=== PATIENT | male | born 1965 | race Two or more races ===

== ENCOUNTER 2023-11-12 09:43 | Inpatient (IN) | payer OTHER ==
[~2023-11-12] VITALS: Ht 185.4 cm; Wt 169.0 kg
[2023-11-12 10:06] VITALS: RESP 20; O2SAT 96
[2023-11-12 10:14] LABS: Urine WBC None Seen /hpf (0 - 3)
[2023-11-12 10:41] LABS: Urine Bacteria NONE SEEN /hpf (None Seen); Urine Blood Negative /uL (Negative); Urine Clarity Clear (Clear); Urine Color Colorless (Yellow); Urine Protein, UAD Negative (Negative); Urine Specific Gravity 1.008 (1.001-1.035); Urine Urobilinogen Normal (Negative); Urine pH 5.5 (5.0-8.0)
[2023-11-12 10:43] LABS: Basophils # (auto) 0 10 ^3/uL (0-0.2); Basophils % (auto) 0.8 % (0.0-2.0); Eosinophils # (auto) 0.3 10 ^3/uL (0-0.8); Eosinophils % (auto) 5.5 % (0.0-7.0); Hematocrit 45.3 % (41.0-53.0); Hemoglobin 14.9 g/dL (13.5-17.5); Lymphocytes # (auto) 0.5 10 ^3/uL (0.4-5.4); Lymphocytes % (auto) 10.6 % (10.0-50.0); Mean Corpuscular Hemoglobin 29.3 pg (28.0-32.0); Mean Corpuscular Hgb Conc. 32.9 g/dL (32.0-36.0); Monocytes # (auto) 0.6 10 ^3/uL (0-1.3); Monocytes % (auto) 11.5 % (0.0-12.0); Neutrophils # (auto) 3.6 10 ^3/uL (1.6-8.6); Neutrophils % (auto) 71.6 % (37.0-80.0); Nucleated Red Blood Cells % 0.1 %; Red Blood Cells 5.09 10^6/uL (4.5-5.90)
[2023-11-12 11:07] LABS: Alanine Aminotransferase 41 U/L (7-40); Alkaline Phosphatase 124 U/L (46-116); Aspartate Aminotransferase 63 U/L (13-40); Calcium 7.9 mg/dL (8.5-10.1); Chloride 108 mmol/L (98-107)
[2023-11-12 11:08] LABS: Albumin 2.5 g/dL (3.2-4.8); Anion Gap 3 (5-15); BUN/Creatinine Ratio 21.6 (10.0-20.0); Bilirubin, Total 0.4 mg/dL (0.2-1.0); Blood Urea Nitrogen 16 mg/dL (9-23); Carbon Dioxide 31 mmol/L (20-30); Glucose 111 mg/dL (74-106); Potassium 4.4 mmol/L (3.5-5.1); Sodium 142 mmol/L (136-145); Total Protein 4.5 g/dL (5.7-8.2)
[2023-11-12 11:12] LABS: INR 1.14 (0.9-1.15); Prothrombin Time 11.9 sec (9.3-11.8)
[2023-11-12] MEDS ORDERED: BISO10TA31 PO (14:46)
[2023-11-12] MEDS ORDERED: FURO40TA4 PO (14:46)
[2023-11-12] MEDS ORDERED: POTA1TAB4 PO (14:46)
[2023-11-12] MEDS ORDERED: DABI150C7 PO (14:46)
[2023-11-12] MEDS ORDERED: ATOR40TA52 PO (14:46)
[2023-11-12] MEDS ORDERED: LISI20TA56 PO (14:46)
[2023-11-12] MEDS: FUROSEMIDE 40 MG/4 ML VIAL IV ONE (14:57)
[2023-11-12] MEDS ORDERED: ONDANSETRON HCL 4 MG/2 ML VIAL IV PRN (17:00)
[2023-11-12] MEDS ORDERED: DOCUSATE SOD 100 MG CAP PO PRN (17:00)
[2023-11-12] MEDS ORDERED: ACETAMINOPHEN 325 MG TAB PO PRN (17:00)
[2023-11-12 19:40] VITALS: RESP 11; RESP 20; O2SAT 94
[2023-11-12] MEDS: ALBUMIN 25% 100 ML IV ONE (19:53)
[2023-11-13] MEDS: PHENYLEPHRINE IV 250 ML IV SCH (00:17)
[2023-11-13 02:45] VITALS: PULSE 71; RESP 18; O2SAT 94
[2023-11-13 03:27] LABS: Basophils # (auto) 0 10 ^3/uL (0-0.2); Basophils % (auto) 0.8 % (0.0-2.0); Eosinophils # (auto) 0.4 10 ^3/uL (0-0.8); Eosinophils % (auto) 6.7 % (0.0-7.0); Hematocrit 44.4 % (41.0-53.0); Hemoglobin 14.7 g/dL (13.5-17.5); Lymphocytes # (auto) 0.7 10 ^3/uL (0.4-5.4); Lymphocytes % (auto) 10.8 % (10.0-50.0); Mean Corpuscular Hemoglobin 29.3 pg (28.0-32.0); Mean Corpuscular Hgb Conc. 33.1 g/dL (32.0-36.0); Mean Corpuscular Volume 88.6 fL (80.0-100.0); Monocytes # (auto) 0.8 10 ^3/uL (0-1.3); Monocytes % (auto) 13.1 % (0.0-12.0); Neutrophils # (auto) 4.2 10 ^3/uL (1.6-8.6); Neutrophils % (auto) 68.6 % (37.0-80.0); Nucleated Red Blood Cells % 0.2 %; Red Blood Cells 5.01 10^6/uL (4.5-5.90); White Blood Cell 6.1 10^3/uL (4.4-10.8)
[2023-11-13 03:45] LABS: Alanine Aminotransferase 34 U/L (7-40); Albumin 2.6 g/dL (3.2-4.8); Alkaline Phosphatase 102 U/L (46-116); Anion Gap 3 (5-15); Aspartate Aminotransferase 38 U/L (13-40); BUN/Creatinine Ratio 14.9 (10.0-20.0); Bilirubin, Total 0.7 mg/dL (0.2-1.0); Blood Urea Nitrogen 11 mg/dL (9-23); Calcium 8.3 mg/dL (8.7-10.4); Carbon Dioxide 29 mmol/L (20-30); Chloride 110 mmol/L (98-107); Glucose 99 mg/dL (74-106); Potassium 3.6 mmol/L (3.5-5.1); Sodium 142 mmol/L (136-145); Total Protein 4.8 g/dL (5.7-8.2)
[2023-11-13 03:56] LABS: Triglycerides 47 mg/dL (< 150)
[2023-11-13 03:57] LABS: LDL Cholesterol 44 mg/dL (< 100)
[2023-11-13 03:58] LABS: Cholesterol 84 mg/dL (< 200); HDL Cholesterol 33 mg/dL (40-59)
[2023-11-13] MEDS: FUROSEMIDE 20 MG/2 ML VIAL IV SCH (06:10)
[2023-11-13 07:56] VITALS: PULSE 65; RESP 20; O2SAT 95
[2023-11-13] MEDS: BISOPROLOL FUMARATE 10 MG PO SCH (10:00)
[2023-11-13] MEDS ORDERED: ATORVASTATIN 20 MG TAB PO SCH (10:00)
[2023-11-13] MEDS ORDERED: LISINOPRIL 20 MG TAB PO SCH (10:00)
[2023-11-13] MEDS: ENOXAPARIN SOD 40 MG/0.4 ML SYRINGE SC SCH (10:34)
[2023-11-13] MEDS ORDERED: METO2.5T PO (11:58)
[2023-11-13] MEDS: SPIRONOLACTONE 25 MG TAB PO SCH (18:00)
[2023-11-13] MEDS: FUROSEMIDE 40 MG/4 ML VIAL IV SCH (18:26)
[2023-11-13 20:27] VITALS: PULSE 93; RESP 17; O2SAT 96
[2023-11-13] MEDS: ENOXAPARIN SOD 150 MG/1 ML SYRINGE SC SCH (22:20)
[2023-11-14] MEDS: NITROGLYCERIN 2% OINT 1GM PKG TD ONE (02:03)
[2023-11-14 05:05] LABS: Chloride 111 mmol/L (98-107); Potassium 3.3 mmol/L (3.5-5.1); Sodium 142 mmol/L (136-145)
[2023-11-14 05:06] LABS: Anion Gap 4 (5-15); Basophils # (auto) 0 10 ^3/uL (0-0.2); Basophils % (auto) 0.7 % (0.0-2.0); Calcium 8.3 mg/dL (8.7-10.4); Carbon Dioxide 27 mmol/L (20-30); Eosinophils # (auto) 0.4 10 ^3/uL (0-0.8); Eosinophils % (auto) 6.6 % (0.0-7.0); Hematocrit 43.3 % (41.0-53.0); Hemoglobin 14.5 g/dL (13.5-17.5); Lymphocytes # (auto) 0.5 10 ^3/uL (0.4-5.4); Lymphocytes % (auto) 8.6 % (10.0-50.0); Mean Corpuscular Hemoglobin 29.6 pg (28.0-32.0); Mean Corpuscular Hgb Conc. 33.4 g/dL (32.0-36.0); Mean Corpuscular Volume 88.5 fL (80.0-100.0); Monocytes # (auto) 0.8 10 ^3/uL (0-1.3); Monocytes % (auto) 14.2 % (0.0-12.0); Neutrophils % (auto) 69.9 % (37.0-80.0); Nucleated Red Blood Cells % 0.3 %; White Blood Cell 5.7 10^3/uL (4.4-10.8)
[2023-11-14 05:11] LABS: BUN/Creatinine Ratio 14.8 (10.0-20.0); Blood Urea Nitrogen 9 mg/dL (9-23); Glucose 100 mg/dL (74-106)
[2023-11-14 08:00] VITALS: O2SAT 99
[2023-11-14] MEDS: POTASSIUM EFFERVESENT TAB 25 MEQ PO ONE (09:43)
[2023-11-14 18:11] VITALS: BP 109/76; PULSE 122; RESP 16; RESP 18; TEMP 97.8; O2SAT 96
[2023-11-14 20:00] VITALS: BP 108/67; PULSE 107; PULSE 122; PULSE 98; RESP 16; RESP 20; TEMP 98.1; O2SAT 96
[2023-11-14] MEDS: METOPROLOL TARTRATE 25 MG TAB PO SCH (21:32)
[2023-11-14 21:57] VITALS: BP 108/67; PULSE 107; RESP 20; TEMP 98.1; O2SAT 94
[2023-11-15 05:00] VITALS: BP 106/70; PULSE 110; RESP 20; TEMP 98.3; O2SAT 91
[2023-11-15 05:51] LABS: Anion Gap 3 (5-15); Carbon Dioxide 30 mmol/L (20-30); Chloride 110 mmol/L (98-107); Potassium 3.5 mmol/L (3.5-5.1); Sodium 143 mmol/L (136-145)
[2023-11-15 05:52] LABS: Calcium 8.4 mg/dL (8.7-10.4)
[2023-11-15 05:57] LABS: BUN/Creatinine Ratio 17.7 (10.0-20.0); Blood Urea Nitrogen 11 mg/dL (9-23); Glucose 99 mg/dL (74-106); Magnesium 1.8 mg/dL (1.6-2.6)
[2023-11-15 08:00] VITALS: PULSE 108; O2SAT 96
[2023-11-15 08:24] VITALS: BP 100/64; PULSE 99; RESP 18; TEMP 97.8; O2SAT 92
[2023-11-15 12:34] VITALS: BP 113/58; PULSE 104; RESP 19; TEMP 98.1; O2SAT 92
[2023-11-15] MEDS ORDERED: TORS10TA12 PO ×2 (13:07)
[2023-11-15 14:07] VITALS: BP 113/58; PULSE 104; RESP 19; TEMP 98.1; O2SAT 92
[2023-11-15 16:47] VITALS: BP 125/77; PULSE 112; RESP 19; TEMP 98; O2SAT 94
== END 2023-11-15 17:52 | disposition home or self-care (01) | DRG 291 ==
LOC: ER 09:43 → OVERFLOW 16:51 → TELE 19:43 → WEST WING 11-14 17:58 → TELE-WESTW 11-15 08:02
PROVIDERS: ADMIT Nurse Practitioner Family; ATTEND Nurse Practitioner Acute Care
DX: I11.0 Hypertensive heart disease with heart failure (principal); I50.43 Acute on chronic combined systolic (congestive) and diastolic (congestive) heart failure; R57.0 Cardiogenic shock; E44.0 Moderate protein-calorie malnutrition; I48.19 Other persistent atrial fibrillation; J90 Pleural effusion, not elsewhere classified; Z68.42 Body mass index [BMI] 45.0-49.9, adult; E66.01 Morbid (severe) obesity due to excess calories; K70.30 Alcoholic cirrhosis of liver without ascites; E78.5 Hyperlipidemia, unspecified; Z87.891 Personal history of nicotine dependence; Z79.01 Long term (current) use of anticoagulants
CPT/HCPCS: 36415; 71045; 76705; 80048; 80053; 80061; 81001; 83036; 83735; 83880; 84484; 85025; 85610; 93005; 93306; 93970; 96374; G0378; P9047

== ENCOUNTER 2024-10-11 11:50 | Inpatient (IN) | payer OTHER ==
[~2024-10-11] VITALS: Ht 185.4 cm; Wt 116.4 kg
[~2024-10-11 11:50] MED LIST: ATOR40TA52 PO; BISO10TA31 PO; DABI150C7 PO; LISI20TA56 PO; METO2.5T PO; POTA1TAB4 PO; TORS10TA12 PO
[2024-10-11] MEDS ORDERED: ONDANSETRON ODT 4 MG TAB PO ONE (12:45)
[2024-10-11] MEDS ORDERED: ONDANSETRON HCL 4 MG/2 ML VIAL IV PRN ×2 (12:45→20:45)
--- NOTE | 2024-10-11 12:56 | ED.PDOC ---
HPI Comments Stevo No Julisherry this is a 59-year-old male patient who presents to the ED with chief complaint of lower limb swelling which started approximately one month ago after an upper respiratory infection (per patient, was sick at that time), but has been gradually getting worse until he presents abdominal and scrotal edema in these past few days. He also reports dyspnea in functional class III, unintentional weight gain of 85 lb and chills. When evaluated in triage patient presented sustained hypotension (81/40 mmHg). Denies chest pain, palpitation syncope, productive cough, nausea, vomiting, diarrhea, bleeding, recent travel and motor or sensory deficits. Past medical history: Congestive heart failure, persistent atrial fibrillation (chads Vasc 2/has bled2) under dabigatran, alcoholic liver cirrhosis (has not consume alcohol for the past nine months) Surgical history: Denies Family history: Father from a PA at age 64 Social history: Lives in [place] with . Ex-smoker he quit 15 years ago (15 pack-year history of smoking). Ex ethanol abuse (up to 36 beers per day) he quit nine months ago. Denies current tobacco, alcohol and other drug abuse Allergies: Denies Home medication: Metolazone 2.5 mg p.o. 3 times a week, atorvastatin 40 mg p.o. daily, furosemide 40 mg p.o. daily, torsemide 10 mg p.o. b.i.d., lisinopril 20 mg p.o. daily, bisoprolol 10 mg p.o. daily, spironolactone 12.5 mg p.o. daily, dabigatran 115 mg p.o. daily, potassium Chief Complaint: Low Blood Pressure Time Seen by MD: 11:55 Primary Care Provider: BRANDYN Allergies: Coded Allergies: NO KNOWN ALLERGIES (Unverified , 11/12/23) Home Meds Active Scripts Torsemide (Torsemide) 10 Mg Tab, 10 MG PO DAILY for 60 Days, #60 TAB Please start daily dose after completing furosemide 10 mg p.o. twice daily for 7 days. Prov:JASSI PEREYRA COMPLEX CARE NURSE PRACTITIONER 11/15/23 Torsemide (Torsemide) 10 Mg Tab, 10 MG PO BID for 7 Days, #14 TAB Prov:JASSI PEREYRA COMPLEX CARE NURSE PRACTITIONER 11/15/23 Reported Medications Metolazone (Metolazone) 2.5 Mg Tab, 1 TAB PO MWF 11/13/23 Potassium Chloride (K-Tab) 20 Meq Tab, 1 TAB PO DAILY 11/12/23 Dabigatran Etexilate Mesylate (Dabigatran Etexilate) 150 Mg Cap, 1 TAB PO BID 11/12/23 Atorvastatin Calcium (ATORVASTATIN CALCIUM) 40 Mg Tab, 1 TAB PO DAILY 11/12/23 Bisoprolol Fumarate (Bisoprolol Fumarate) 10 Mg Tab, 1 TAB PO DAILY 11/12/23 Lisinopril (Lisinopril) 20 Mg Tab, 1 TAB PO DAILY 11/12/23 Mode of Arrival: Ambulatory Past Medical History PAST MEDICAL HISTORY: Liver Surgical History: Denies all surgeries Family History Family History: Reviewed,noncontributory to illness Social History Smoker: Quit Greater Than 1 Year Alcohol: Sober Drugs: Denies Drug Use Lives In: Home Physical Exam General Appearance: No Apparent Distress, Normal HEENT: Normal ENT Inspection, Pharynx Normal, TMs Normal Neck: Full Range of Motion, Non-Tender, Normal, Normal Inspection Respiratory: Chest Non-Tender, Decreased Breath Sounds, No Accessory Muscle Use, No Respiratory Distress, Rales Cardiovascular: No JVD, No Murmur, No Gallop, Normal Peripheral Pulses, Tachycardia Breast Exam: Deferred Gastrointestinal: Distended, Non Tender, No Pulsatile Mass, Soft Genitalia: Deferred Pelvic: Deferred Rectal: Deferred Extremities: Leg edema Neurologic: Alert, home hospice rn II-XII nml as Tested, No Motor Deficits, Normal Affect, Normal Mood, No Sensory Deficits Cerebellar Function: Normal Reflexes: Normal Skin: Dry, Normal Color, Warm Lymphatic: No Adenopathy Was a procedure done? Was a procedure done?: No CP Differential Dx Differential Diagnosis: A-fib, A-Flutter, Electrolyte Disorder, Heart Failure, Renal Failure Comment Decompensated liver cirrhosis X-Ray, Labs, Meds, VS Vital Signs Date Time Temp Pulse Resp B/P (MAP) Pulse Ox O2 Delivery O2 Flow Rate FiO2 10/11/24 12:23 98.2 125 20 81/45 (57) 91 X-Ray, Labs, Meds, VS Comment Have ordered laboratory workup, abdominal ultrasound to evaluate paracentesis, echocardiogram, EKG and chest x-ray. Time of 1ST Reevaluation: 12:54 Reevaluation 1ST: Unchanged Patient Education/Counseling: Diagnosis, Treatment, Prognosis Family Education/Counseling: Diagnosis, Treatment, Prognosis Departure 1 Departure Time of Disposition: 12:54 Impression: Primary Impression: Hypotension Additional Impressions: Congestive heart disease Liver cirrhosis Atrial fibrillation Sepsis Disposition: 09 ADMITTED INPATIENT Admit to: [facility] Condition: Serious Additional Instructions: Patient is currently hypotensive with acute on chronic CHF. Patient will benefit from IV norepinephrine and IV furosemide at this point. Have ordered complementary workup, pending. Patient has poor prognosis Critical Care Note Critical Care Time?: No Stability Stability form required: No Heart Score Heart Score: Heart Score Response (Comments) Value History N/A 0 EKG N/A 0 Age N/A 0 Risk Factors N/A 0 Troponin N/A 0 Total 0 ARMINDA BERMEO RESIDENT Oct 11, 2024 12:56
--- NOTE | 2024-10-11 12:59 | DVH ---
CHEST RADIOGRAPH Indication: CHF Technique: Single frontal view of the chest was obtained COMPARISON: XY CHEST XRAY 1 VIEW on DOS: 11/12/23 FINDINGS: Lines and Tubes: None Lungs: Right lower lobe airspace disease. Pleura: No effusion. No pneumothorax. Cardiomediastinal contours: Unremarkable Bones: Unremarkable IMPRESSION: Right lower lobe airspace disease.
[2024-10-11] MEDS: NOREPINEPHRINE 8 MG/250ML KIT 250 ML IV SCH (13:15)
[2024-10-11 13:27] LABS: Basophils # (auto) 0 10 ^3/uL (0-0.2); Basophils % (auto) 0.3 % (0.0-2.0); Eosinophils # (auto) 0 10 ^3/uL (0-0.8); Hematocrit 33.3 % (41.0-53.0); Hemoglobin 10.8 g/dL (13.5-17.5); Lymphocytes # (auto) 0.1 10 ^3/uL (0.4-5.4); Lymphocytes % (auto) 0.6 % (10.0-50.0); Mean Corpuscular Hemoglobin 27.2 pg (28.0-32.0); Mean Corpuscular Hgb Conc. 32.3 g/dL (32.0-36.0); Mean Corpuscular Volume 84.1 fL (80.0-100.0); Monocytes # (auto) 0.3 10 ^3/uL (0-1.3); Monocytes % (auto) 2.9 % (0.0-12.0); Neutrophils # (auto) 10.7 10 ^3/uL (1.6-8.6); Neutrophils % (auto) 96.2 % (37.0-80.0); Platelet Count (auto) 308 10^3/uL (140-450); Red Blood Cells 3.96 10^6/uL (4.5-5.90); Red Cell Distribution Width 17.3 % (11.8-14.3); White Blood Cell 11.2 10^3/uL (4.4-10.8)
[2024-10-11] MEDS: FUROSEMIDE INJECTION 100 MG in SODIUM CHL 0.9% 100 ML IV SCH (13:33)
[2024-10-11 13:49] LABS: Urine Bacteria None Seen /hpf (None Seen)
[2024-10-11 13:53] LABS: INR 1.18 (0.9-1.15); Partial Thromboplastin Time 26.7 SEC (24.5-34.5); Prothrombin Time 12.3 sec (9.3-11.8)
[2024-10-11 14:06] LABS: Lactic Acid w/Reflex 2.1 mmol/L (0.4-2.0)
[2024-10-11 14:21] LABS: Urine Blood Negative /uL (Negative); Urine Clarity Ex.Turbid (Clear); Urine Color Dark-Yellow (Yellow); Urine Protein, UAD 2+ (Negative); Urine Specific Gravity 1.022 (1.001-1.035); Urine Squamous Epithelial Cell FEW /hpf (<5); Urine Urobilinogen 2 mg/dL (Negative); Urine WBC 1 /HPF (0-3); Urine pH 5.5 (5.0-9.0)
--- NOTE | 2024-10-11 14:21 | DVH ---
INDICATION: History of liver cirrhosis TECHNIQUE: Multiple real-time sonographic images of the abdomen were obtained. COMPARISON: None FINDINGS: The liver is heterogeneous in echogenicity. The liver measures 18cm. No intrahepatic bilia ry ductal dilatation is noted. Gallbladder not seen. The right kidney measures 12cm. No hydronephrosis. The left kidney measures 14cm. No hydronephrosis . The spleen measures 16cm, within normal limits. The echogenicity is within normal limits. The pancreas is not well visualized due to obscuration from bowel gas. The visualized portions of the IVC and aorta are grossly unremarkable. IMPRESSION: HEPATOSPLENOMEGALY. SMALL VOLUME ASCITES HEPATIC STEATOSIS. Moderate right pleural effusion.
[2024-10-11 14:43] LABS: Amphetamine Screen, Urine Neg (NEGATIVE); Barbiturate Scree,Urine Neg (NEGATIVE); Benzodiazephine Screen, Urine Neg (NEGATIVE); Cannabinoid Screen, Urine Neg (NEGATIVE); Cocaine Screen, Urine Neg (NEGATIVE); Opiate Scree,Urine Neg (NEGATIVE); Phencyclidine Screen, Urine Neg (NEGATIVE)
[2024-10-11] MEDS: cefTRIAXone 1GM/50ML D5W 50 ML IV ONE (14:53)
[2024-10-11 14:58] LABS: Alanine Aminotransferase 37 U/L (7-40); Alkaline Phosphatase 107 U/L (46-116); Anion Gap 7 (5-15); BUN/Creatinine Ratio 23.1 (10.0-20.0); Carbon Dioxide 25 mmol/L (20-31); Chloride 102 mmol/L (98-107); Glucose 100 mg/dL (74-106); Magnesium 1.7 mg/dL (1.6-2.6); Potassium 4.4 mmol/L (3.5-5.1)
[2024-10-11 14:59] LABS: Albumin 2.6 g/dL (3.2-4.8); Aspartate Aminotransferase 46 U/L (13-40); Bilirubin, Total 0.9 mg/dL (0.2-1.0); Blood Urea Nitrogen 30 mg/dL (9-23); Phosphorus 3.7 mg/dL (2.4-5.1); Sodium 134 mmol/L (136-145); Total Protein 4.8 g/dL (5.7-8.2)
[2024-10-11] MEDS: metroNIDAZOLE 500MG/100ML 100 ML IV ONE (15:23)
[2024-10-11 16:12] LABS: Rapid Influenza A Negative (Negative); Rapid Influenza B Negative (Negative)
[2024-10-11 16:13] LABS: COVID19 ANTIGEN SOFIA FIA NEGATIVE (NEGATIVE)
[2024-10-11 16:18] VITALS: PULSE 109; RESP 11; O2SAT 96
--- NOTE | 2024-10-11 16:52 | DVHSR ---
APPROVED REPORT EXAM: Two-dimensional and M-mode echocardiogram with Doppler and color Doppler. Blood Pressure: 81/45 mmHg INDICATION Heart Failure RISK FACTORS Obesity: Height: 6'1, Weight: 392 DIMENSIONS LVDd4.7 (3.8-5.7cm)LA (2D)3.6 (1.9-4.0cm)Aortic Root3.7 (2.0-3.7cm) LVDs3.0 (2.5-4.0cm)LA (MM) (1.9-4.0cm)Aortic Cusp Exc1.9 (1.5-2.0cm) EF (%) 50.0 (55-70%)Rt. Atrium3.4 (1.9-4.0cm)Asc. Aorta cm IVSd0.9 (0.7-1.1cm)RV (D)4.0 (1.8-2.4cm) PWd0.9 (0.7-1.1cm) Mitral Valve MitralMitral Stenosis E wave1.29m/sMV Mean GR.mmHg A wavem/sMV Peak GR.57mmHg E/A ratio0.02D MVAcm2 Aortic Valve Aortic ValveAortic Stenosis V11.06m/Kimber[place] Mean GR.3mmHg V21.13m/[place] Peak GR.5mmHg LVOT Diameter1.8 (1.8-2.4cm)Doppler AVA2.39cm2 Pulmonic Valve V20.96m/s Tricuspid Valve TR Velocity2.20m/s [id number] LEFT VENTRICLE The left ventricle is normal size. There is normal left ventricular wall thickness. Not well visualized, but possibly severely reduced. Would repeat limited TTE once heart rates better controlled. Not well visualized. RIGHT VENTRICLE The right ventricle is moderately dilated. Systolic function is moderately reduced. ATRIA The left atrium is severely dilated. The right atrium is moderately dilated. MITRAL VALVE The mitral valve is not well visualized. There is no mitral valve regurgitation noted. PULMONIC VALVE The pulmonic valve is not well visualized. TRICUSPID VALVE The tricuspid valve is not well visualized. There is trace tricuspid regurgitation. AORTIC VALVE The aortic valve is not well visualized. No aortic regurgitation is present. GREAT VESSELS The aortic root is normal size. PERICARDIAL EFFUSION No evidence of pericardial effusion. Other Information Quality : Technically LimitedRhythm : Technically limited study due to body habitus. Conclusion The left ventricle is normal size. There is normal left ventricular wall thickness. Unable to assess LVEF, but possibly severely reduced. Would repeat limited TTE once heart rates better controlled. The right ventricle is moderately dilated. Systolic function is moderately reduced. The left atrium is severely dilated. The right atrium is moderately dilated. No significant valvular abnormalities. No evidence of pericardial effusion.
--- NOTE | 2024-10-11 20:42 | DVHHP2 ---
History of Present Illness Stevo Kelley this is a 59-year-old male patient who presents to the ED with chief complaint of lower limb swelling which started approximately one month ago after an upper respiratory infection (per patient, was sick at that time), but has been gradually getting worse until he presents abdominal and scrotal edema in these past few days. He also reports dyspnea in functional class III, unintentional weight gain of 85 lb and chills. When evaluated in triage patient presented sustained hypotension (81/40 mmHg). Denies chest pain, palpitation syncope, productive cough, nausea, vomiting, diarrhea, bleeding, recent travel and motor or sensory deficits. Past medical history: Congestive heart failure, persistent atrial fibrillation (chads Vasc 2/has bled2) under dabigatran, alcoholic liver cirrhosis (has not consume alcohol for the past nine months) Surgical history: Denies Family history: Father from a [place] at age 64 Social history: Lives in [place] with . Ex-smoker he quit 15 years ago (15 pack-year history of smoking). Ex ethanol abuse (up to 36 beers per day) he quit nine months ago. Denies current tobacco, alcohol and other drug abuse Allergies: Denies Home medication: Metolazone 2.5 mg p.o. 3 times a week, atorvastatin 40 mg p.o. daily, furosemide 40 mg p.o. daily, torsemide 10 mg p.o. b.i.d., lisinopril 20 mg p.o. daily, bisoprolol 10 mg p.o. daily, spironolactone 12.5 mg p.o. daily, dabigatran 115 mg p.o. daily, potassium PAST MEDICAL HISTORY: Liver Surgical History: Denies all surgeries Family History: Reviewed,noncontributory to illness Social History Smoker: Quit Greater Than 1 Year Alcohol: Sober Drugs: Denies Drug Use Lives In: Home Patient Family History: FH: myocardial infarction G8 FATHER Allergies: Coded Allergies: NO KNOWN ALLERGIES (Unverified , 11/12/23) Home Meds Active Scripts Torsemide (Torsemide) 10 Mg Tab, 10 MG PO DAILY for 60 Days, #60 TAB Please start daily dose after completing furosemide 10 mg p.o. twice daily for 7 days. Prov:JASSI PEREYRA FAST FOOD SERVER 11/15/23 Torsemide (Torsemide) 10 Mg Tab, 10 MG PO BID for 7 Days, #14 TAB Prov:JASSI PEREYRA FAST FOOD SERVER 11/15/23 Reported Medications Metolazone (Metolazone) 2.5 Mg Tab, 1 TAB PO MWF 11/13/23 Potassium Chloride (K-Tab) 20 Meq Tab, 1 TAB PO DAILY 11/12/23 Dabigatran Etexilate Mesylate (Dabigatran Etexilate) 150 Mg Cap, 1 TAB PO BID 11/12/23 Atorvastatin Calcium (ATORVASTATIN CALCIUM) 40 Mg Tab, 1 TAB PO DAILY 11/12/23 Bisoprolol Fumarate (Bisoprolol Fumarate) 10 Mg Tab, 1 TAB PO DAILY 11/12/23 Lisinopril (Lisinopril) 20 Mg Tab, 1 TAB PO DAILY 11/12/23 Current Medications Current Medications Medications (Trade) Dose Ordered Sig/Mikey Route PRN Reason Start Time Stop Time Status Last Admin Furosemide 100 mg/ Sodium Chloride 110 ml @ 4.4 mls/hr Q24H IV 10/11/24 12:45 10/11/24 13:33 Norepinephrine Bitartrate 250 ml @ 3.75 mls/hr Q24H IV 10/11/24 12:45 10/11/24 13:15 Ondansetron HCl (Zofran) 4 mg Q4HPRN PRN IV NAUSEA / VOMITING 10/11/24 12:45 Ceftriaxone Sodium 50 ml @ 100 mls/hr DAILY@09 IV 10/12/24 09:00 Metronidazole 100 ml @ 100 mls/hr Q8HR IV 10/11/24 22:00 Enoxaparin Sodium (Lovenox) 180 mg Q12HR SC 10/11/24 22:00 UNV Enoxaparin Sodium (Lovenox) 150 mg Q12HR SC 10/11/24 22:00 Ferrous Sulfate 325 mg DAILY PO 10/12/24 10:00 UNV Furosemide (Lasix Injection) 40 mg BID IV 10/11/24 22:00 UNV Sodium Chloride (Saline Lock Ns) 10 ml Q8HR IV 10/11/24 22:00 UNV Docusate Sodium (Colace Capsule) 100 mg BIDPRN PRN PO FOR CONSTIPATION 10/11/24 20:45 UNV Acetaminophen (Tylenol Tablet) 650 mg Q6HP PRN PO PAIN SCALE 1-3 OR TEMP>100.4 10/11/24 20:45 UNV Acetaminophen/ Hydrocodone Bitart (Kountze 5/325MG Tab) 1 tab Q4HP PRN PO MODERATE PAIN (4-6 PAIN SCALE) 10/11/24 20:45 UNV Ondansetron HCl (Zofran) 4 mg Q4HP PRN IV NAUSEA / VOMITING 10/11/24 20:45 UNV Vital Signs Vital Signs Date Time Temp Pulse Resp B/P (MAP) Pulse Ox O2 Delivery O2 Flow Rate FiO2 10/11/24 20:00 120 10/11/24 19:00 96/54 10/11/24 18:00 18 97 10/11/24 16:18 Room Air* 0 21 10/11/24 12:23 98.2 Physical Exam General- 59 years old male, morbidly obese, lying in bed. No apparent distress HEENT-atraumatic, normocephalic Heart-regular rate and regular Lungs decreased breath sounds due to body habitus Abdomen soft nontender nondistended Musculoskeletal-diffuse edema up to posterior abdomen mid axillary while lying on his back Neuro-awake, alert, follow commands. No focal deficits Results Labs Test 10/11/24 18:35 10/11/24 16:16 10/11/24 14:40 10/11/24 14:24 Range/Units Iron Level 21 L 65-175 ug/dL Total Iron Binding Capacity 234 L 250-425 ug/dL Percent Iron Saturation 9.0 L 20-55 % Lactic Acid Level 2.0 0.4-2.0 mmol/L Troponin I High Sensitivity 26 </=54 ng/L Influenza Type A Antigen Negative Negative Influenza Type B Antigen Negative Negative SARS-CoV-2 Antigen (Rapid) Negative NEGATIVE Plasma/Serum Blood Alcohol 4.7 <10 mg/dL Test 10/11/24 13:34 10/11/24 13:10 Range/Units Urine Color Dark-yellow Yellow Urine Clarity Ex.turbid Clear Urine pH 5.5 5.0-9.0 Urine Specific [place] 1.022 1.001-1.035 Urine Protein 2+ H Negative Urine Ketones Negative Negative Urine Blood Negative Negative /uL Urine Nitrite Negative Negative Urine Bilirubin Negative Negative Urine Urobilinogen 2 H Negative mg/dL Urine Leukocyte Esterase Negative Negative /uL Urine RBC <1 0 - 3 /hpf Urine Microscopic WBC 1 0-3 /HPF Urine Squamous Epithelial Cells Few <5 /hpf Urine Bacteria None seen None Seen /hpf Urine Glucose Normal Normal mg/dL Urine Opiates Screen Neg NEGATIVE Urine Fentanyl Screen Neg NEGATIVE Urine Barbiturates Screen Neg NEGATIVE Urine Phencyclidine Screen Neg NEGATIVE Urine Amphetamines Screen Neg NEGATIVE Urine Benzodiazepines Screen Neg NEGATIVE Urine Cocaine Screen Neg NEGATIVE Urine Cannabinoids Screen Neg NEGATIVE White Blood Count 11.2 H 4.4-10.8 10^3/uL Red Blood Count 3.96 L 4.5-5.90 10^6/uL Hemoglobin 10.8 L 13.5-17.5 g/dL Hematocrit 33.3 L 41.0-53.0 % Mean Corpuscular Volume 84.1 80.0-100.0 fL Mean Corpuscular Hemoglobin 27.2 L 28.0-32.0 pg Mean Corpuscular Hemoglobin Concent 32.3 32.0-36.0 g/dL Red Cell Distribution Width 17.3 H 11.8-14.3 % Platelet Count 308 140-450 10^3/uL Mean Platelet Volume 6.1 L 6.9-10.8 fL Neutrophils (%) (Auto) 96.2 H 37.0-80.0 % Lymphocytes (%) (Auto) 0.6 L 10.0-50.0 % Monocytes (%) (Auto) 2.9 0.0-12.0 % Eosinophils (%) (Auto) 0.0 0.0-7.0 % Basophils (%) (Auto) 0.3 0.0-2.0 % Neutrophils # (Auto) 10.7 H 1.6-8.6 10 ^3/uL Lymphocytes # (Auto) 0.1 L 0.4-5.4 10 ^3/uL Monocytes # (Auto) 0.3 0-1.3 10 ^3/uL Eosinophils # (Auto) 0 0-0.8 10 ^3/uL Basophils # (Auto) 0 0-0.2 10 ^3/uL Nucleated Red Blood Cells 0.0 % Prothrombin Time 12.3 H 9.3-11.8 sec Prothrombin Time INR 1.18 H 0.9-1.15 Activated Partial Thromboplast Time 26.7 24.5-34.5 SEC Sodium Level 134 L 136-145 mmol/L Potassium Level 4.4 3.5-5.1 mmol/L Chloride Level 102 98-107 mmol/L Carbon Dioxide Level 25 20-31 mmol/L Anion Gap 7 5-15 Blood Urea Nitrogen 30 H 9-23 mg/dL Creatinine 1.30 0.700-1.30 mg/dL Glomerular Filtration Rate Calc 64 >90 mL/min BUN/Creatinine Ratio 23.1 H 10.0-20.0 Serum Glucose 100 74-106 mg/dL Calcium Level 8.0 L 8.7-10.4 mg/dL Phosphorus Level 3.7 2.4-5.1 mg/dL Magnesium Level 1.7 1.6-2.6 mg/dL Total Bilirubin 0.9 0.2-1.0 mg/dL Aspartate Amino Transferase (AST) 46 H 13-40 U/L Alanine Aminotransferase (ALT) 37 7-40 U/L Alkaline Phosphatase 107 46-116 U/L B-Type Natriuretic Peptide 167.61 0-100 pg/mL Total Protein 4.8 L 5.7-8.2 g/dL Albumin 2.6 L 3.2-4.8 g/dL Thyroid Stimulating Hormone (TSH) 2.29 0.55-4.78 uIU/mL Primary Diagnosis Septic shock due to pneumonia Right pleural effusion Anemia due to iron deficiency CHF exacerbation AFib on dabigatran Plan Hypotensive in ED Chest x-ray shows right pleural effusion Start Zosyn for broad-spectrum antibiotics. Follow the blood culture and sputum culture 40 mg IV diuresis Echo shows possible severe reduced EF Daily weights Fluid restriction Cardiology consult Optimize potassium greater than four, magnesium greater than two while diuresis Thoracentesis right pleural effusion Likely pressor support while hypotensive. Map goal greater than 65 Iron supplement for iron deficiency anemia Hold dabigatran lymphoma rate in the hospital. Switch to Eliquis 5 mg b.i.d. check AFB and ammonia in view of cirrhosis Full code Cardiac diet Eliquis for DVT prophylaxis PPI for GI prophylaxis Plan discussed with: Patient Problems List: (1) Hypotension Status: Acute (2) Sepsis Status: Acute (3) Liver cirrhosis Status: Acute (4) Atrial fibrillation Status: Acute (5) Congestive heart disease Status: Acute (6) Elevated liver enzymes (7) Anasarca Status: Acute Date of Service: Oct 11, 2024 Billing Provider: STEFFANIE FUNEZ MD Common Visit Codes: 33659-ITMCFRGA CARE 30-74 MIN, 45609-[id number] CARE-EACH +30MIN STEFFANIE FUNEZ MD Oct 11, 2024 20:42
[2024-10-11] MEDS ORDERED: ACETAMINOPHEN 325 MG TAB PO PRN (20:45)
[2024-10-11] MEDS ORDERED: DOCUSATE SOD 100 MG CAP PO PRN (20:45)
[2024-10-11] MEDS ORDERED: ENOXAPARIN SOD 150 MG/1 ML SYRINGE SC SCH (22:00)
[2024-10-11] MEDS ORDERED: ENOXAPARIN SOD 100 MG/1 ML SYRINGE SC SCH (22:00)
[2024-10-11] MEDS: APIXABAN 5 MG TAB PO SCH (22:30)
[2024-10-11] MEDS: ATORVASTATIN 20 MG TAB PO SCH (22:31)
[2024-10-11] MEDS: SODIUM CHLOR 0.9% PF (SALINE LOCK) 10ML VIAL/SYR IV SCH (22:31)
[2024-10-11] MEDS: FUROSEMIDE 40 MG/4 ML VIAL IV SCH (22:32)
[2024-10-11] MEDS: PIPERACILLIN-TAZOB 3.375GM 100 ML IV ONE (22:39)
[2024-10-12] MEDS: metroNIDAZOLE 500MG/100ML 100 ML IV SCH (00:34)
[2024-10-12 03:28] LABS: Basophils # (auto) 0 10 ^3/uL (0-0.2); Basophils % (auto) 0.1 % (0.0-2.0); Eosinophils # (auto) 0 10 ^3/uL (0-0.8); Hematocrit 30.2 % (41.0-53.0); Hemoglobin 10.2 g/dL (13.5-17.5); Lymphocytes # (auto) 0.2 10 ^3/uL (0.4-5.4); Lymphocytes % (auto) 1.7 % (10.0-50.0); Mean Corpuscular Hemoglobin 27.8 pg (28.0-32.0); Mean Corpuscular Hgb Conc. 33.8 g/dL (32.0-36.0); Mean Corpuscular Volume 82.2 fL (80.0-100.0); Monocytes # (auto) 0.6 10 ^3/uL (0-1.3); Monocytes % (auto) 6.1 % (0.0-12.0); Neutrophils # (auto) 9.3 10 ^3/uL (1.6-8.6); Neutrophils % (auto) 92.1 % (37.0-80.0); Nucleated Red Blood Cells % 0.1 %; Platelet Count (auto) 334 10^3/uL (140-450); Red Blood Cells 3.67 10^6/uL (4.5-5.90); Red Cell Distribution Width 16.3 % (11.8-14.3); White Blood Cell 10.1 10^3/uL (4.4-10.8)
[2024-10-12 03:30] VITALS: PULSE 96; RESP 16; O2SAT 93
[2024-10-12 03:58] LABS: Alanine Aminotransferase 33 U/L (7-40); Albumin 2.4 g/dL (3.2-4.8); Alkaline Phosphatase 96 U/L (46-116); Anion Gap 7 (5-15); Aspartate Aminotransferase 45 U/L (13-40); BUN/Creatinine Ratio 27.4 (10.0-20.0); Bilirubin, Total 0.8 mg/dL (0.2-1.0); Blood Urea Nitrogen 32 mg/dL (9-23); Calcium 8.3 mg/dL (8.7-10.4); Carbon Dioxide 26 mmol/L (20-31); Chloride 101 mmol/L (98-107); Glucose 134 mg/dL (74-106); Magnesium 1.8 mg/dL (1.6-2.6); Sodium 134 mmol/L (136-145); Total Protein 4.7 g/dL (5.7-8.2)
[2024-10-12] MEDS: PIPERACILLIN-TAZOB 3.375GM 100 ML IV SCH ×2 (07:29→15:00)
[2024-10-12] MEDS ORDERED: cefTRIAXone 1GM/50ML D5W 50 ML IV SCH (09:00)
[2024-10-12] MEDS: FERROUS SULFATE 325mg EC TAB PO SCH (10:00)
--- NOTE | 2024-10-12 11:00 | DVHINCON2 ---
Date Seen: Oct 12, 2024 Referring Physician MD Vimal Reason for Consultation Diffuse anasarca, severe CHF History of Present Illness This is a 59-year-old male patient who presents to the emergency room with chief complaint of generalized edema for one month. The patient reports he has gained approximately 85 lb since August. He comes to the emergency room for further evaluation. Cardiology has now been consulted for severe anasarca and CHF. Initial twelve lead electrocardiogram done at bedside at time of assessment reveals atrial fibrillation. Initial troponin level of 27ng/L with flat trend thereafter. The patient reports dyspnea on exertion and orthopnea. Significant past medical history includes congestive heart failure, atrial fibrillation (on Pradaxa), hyperlipidemia, liver cirrhosis, tobacco use, and morbid obesity. 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 Past Medical History Past medical history reviewed. No other significant than mentioned above. Past Surgical History Denies Family History: FH: myocardial infarction G8 FATHER Family History Family history reviewed. Social History Patient has a five pack-year history, quit smoking approximately 10 years ago Patient states he has not had any alcohol intake for approximately six months Patient denies any illicit drug use Allergies: Coded Allergies: NO KNOWN ALLERGIES (Unverified , 11/12/23) Home Meds Active Scripts Torsemide (Torsemide) 10 Mg Tab, 10 MG PO DAILY for 60 Days, #60 TAB Please start daily dose after completing furosemide 10 mg p.o. twice daily for 7 days. Prov:JASSI PEREYRA [employer] 11/15/23 Torsemide (Torsemide) 10 Mg Tab, 10 MG PO BID for 7 Days, #14 TAB Prov:JASSI PEREYRA [employer] 11/15/23 Reported Medications Metolazone (Metolazone) 2.5 Mg Tab, 1 TAB PO MWF 11/13/23 Potassium Chloride (K-Tab) 20 Meq Tab, 1 TAB PO DAILY 11/12/23 Dabigatran Etexilate Mesylate (Dabigatran Etexilate) 150 Mg Cap, 1 TAB PO BID 11/12/23 Atorvastatin Calcium (ATORVASTATIN CALCIUM) 40 Mg Tab, 1 TAB PO DAILY 11/12/23 Bisoprolol Fumarate (Bisoprolol Fumarate) 10 Mg Tab, 1 TAB PO DAILY 11/12/23 Lisinopril (Lisinopril) 20 Mg Tab, 1 TAB PO DAILY 11/12/23 Home Meds Home medications reviewed. Current Medications Current Medications Medications (Trade) Dose Ordered Sig/Mikey Route PRN Reason Start Time Stop Time Status Last Admin Furosemide 100 mg/ Sodium Chloride 110 ml @ 4.4 mls/hr Q24H IV 10/11/24 12:45 10/11/24 21:15 DC 10/11/24 13:33 Norepinephrine Bitartrate 250 ml @ 3.75 mls/hr Q24H IV 10/11/24 12:45 10/12/24 05:51 Ondansetron HCl (Zofran) 4 mg Q4HPRN PRN IV NAUSEA / VOMITING 10/11/24 12:45 10/11/24 21:45 DC Ceftriaxone Sodium 50 ml @ 100 mls/hr DAILY@09 IV 10/12/24 09:00 10/11/24 21:13 DC Metronidazole 100 ml @ 100 mls/hr Q8HR IV 10/11/24 22:00 10/12/24 05:51 Enoxaparin Sodium (Lovenox) 180 mg Q12HR SC 10/11/24 22:00 UNV Enoxaparin Sodium (Lovenox) 150 mg Q12HR SC 10/11/24 22:00 10/11/24 21:41 DC Ferrous Sulfate 325 mg DAILY PO 10/12/24 10:00 10/12/24 10:00 Furosemide (Lasix Injection) 40 mg BIDD IV 10/11/24 22:00 10/12/24 05:51 Sodium Chloride (Saline Lock Ns) 10 ml Q8HR IV 10/11/24 22:00 10/12/24 05:47 Docusate Sodium (Colace Capsule) 100 mg BIDPRN PRN PO FOR CONSTIPATION 10/11/24 20:45 Acetaminophen (Tylenol Tablet) 650 mg Q6HP PRN PO PAIN SCALE 1-3 OR TEMP>100.4 10/11/24 20:45 Acetaminophen/ Hydrocodone Bitart ([place] 5/325MG Tab) 1 tab Q4HP PRN PO MODERATE PAIN (4-6 PAIN SCALE) 10/11/24 20:45 Ondansetron HCl (Zofran) 4 mg Q4HP PRN IV NAUSEA / VOMITING 10/11/24 20:45 Apixaban (Eliquis) 5 mg BID PO 10/11/24 22:00 10/12/24 10:00 Atorvastatin Calcium (Lipitor) 40 mg HS PO 10/11/24 22:00 10/11/24 22:31 Metolazone (Zaroxolyn) 2.5 mg MWF PO 10/14/24 10:00 Piperacillin Sod/ Tazobactam Sod 100 ml @ 25 mls/hr Q8HR IV 10/12/24 06:00 10/12/24 07:29 Review of Systems Constitutional: No symptom reported Ears, Nose, & Throat: No symptom reported Eyes: No symptom reported Neurological: No symptoms reported Pulmonary/Respiratory: Orthopnea, dyspnea on exertion Cardiovascular: Generalized edema Gastrointestinal: No symptom reported Genitourinary: No symptom reported Musculoskeletal: No symptom reported Skin: No symptom reported Psychiatric: No symptom reported Endocrine: No symptom reported Hematologic/Lymphatic: No symptom reported Vital Signs Vital Signs Date Time Temp Pulse Resp B/P (MAP) Pulse Ox O2 Delivery O2 Flow Rate FiO2 10/12/24 09:30 98.2 106 20 115/69 (84) 96 98.2 10/12/24 03:30 Room Air* 0 21 Physical Exam General Appearance: Cooperative. Morbidly obese Pulmonary/Respiratory: Diminished bilateral lower lobes Cardiovascular/Chest: Irregular rate and rhythm. Peripheral Pulses: 2+ Radial (R). 2+ Radial (L). 1+ Pedal (R). 1+ Pedal (L) Abdominal Exam: Distended abdomen Ankle Exam: 4+pitting edema Lower extremities: 4+ pitting edema Neuro/Mental Status: A/OX4, coherent. Thoughts/Psych: Normal thought pattern. Appropriate mood and affect. Good judgment and insight. Appearance: No acute distress. Skin Exam: Normal inspection. Normal color. Warm and dry. Labs/Diagnostic Data Labs Test 10/12/24 03:08 10/11/24 23:31 10/11/24 20:52 10/11/24 18:35 Range/Units White Blood Count 10.1 4.4-10.8 10^3/uL Red Blood Count 3.67 L 4.5-5.90 10^6/uL Hemoglobin 10.2 L 13.5-17.5 g/dL Hematocrit 30.2 L 41.0-53.0 % Mean Corpuscular Volume 82.2 80.0-100.0 fL Mean Corpuscular Hemoglobin 27.8 L 28.0-32.0 pg Mean Corpuscular Hemoglobin Concent 33.8 32.0-36.0 g/dL Red Cell Distribution Width 16.3 H 11.8-14.3 % Platelet Count 334 140-450 10^3/uL Mean Platelet Volume 6.2 L 6.9-10.8 fL Neutrophils (%) (Auto) 92.1 H 37.0-80.0 % Lymphocytes (%) (Auto) 1.7 L 10.0-50.0 % Monocytes (%) (Auto) 6.1 0.0-12.0 % Eosinophils (%) (Auto) 0.0 0.0-7.0 % Basophils (%) (Auto) 0.1 0.0-2.0 % Neutrophils # (Auto) 9.3 H 1.6-8.6 10 ^3/uL Lymphocytes # (Auto) 0.2 L 0.4-5.4 10 ^3/uL Monocytes # (Auto) 0.6 0-1.3 10 ^3/uL Eosinophils # (Auto) 0 0-0.8 10 ^3/uL Basophils # (Auto) 0 0-0.2 10 ^3/uL Nucleated Red Blood Cells 0.1 % Sodium Level 134 L 136-145 mmol/L Potassium Level 4.0 3.5-5.1 mmol/L Chloride Level 101 98-107 mmol/L Carbon Dioxide Level 26 20-31 mmol/L Anion Gap 7 5-15 Blood Urea Nitrogen 32 H 9-23 mg/dL Creatinine 1.17 0.700-1.30 mg/dL Glomerular Filtration Rate Calc 73 >90 mL/min BUN/Creatinine Ratio 27.4 H 10.0-20.0 Serum Glucose 134 H 74-106 mg/dL Calcium Level 8.3 L 8.7-10.4 mg/dL Magnesium Level 1.8 1.6-2.6 mg/dL Total Bilirubin 0.8 0.2-1.0 mg/dL Aspartate Amino Transferase (AST) 45 H 13-40 U/L Alanine Aminotransferase (ALT) 33 7-40 U/L Alkaline Phosphatase 96 46-116 U/L Total Protein 4.7 L 5.7-8.2 g/dL Albumin 2.4 L 3.2-4.8 g/dL Stool Occult Blood Positive Negative Stool Occult Blood Sample #2 Negative Stool Occult Blood Sample #3 Negative Ammonia 36 H 11-32 umol/L Iron Level 21 L 65-175 ug/dL Total Iron Binding Capacity 234 L 250-425 ug/dL Percent Iron Saturation 9.0 L 20-55 % Test 10/11/24 16:16 10/11/24 14:40 10/11/24 14:24 10/11/24 13:34 Range/Units Lactic Acid Level 2.0 0.4-2.0 mmol/L Troponin I High Sensitivity 26 </=54 ng/L Influenza Type A Antigen Negative Negative Influenza Type B Antigen Negative Negative SARS-CoV-2 Antigen (Rapid) Negative NEGATIVE Plasma/Serum Blood Alcohol 4.7 <10 mg/dL Urine Color Dark-yellow Yellow Urine Clarity Ex.turbid Clear Urine pH 5.5 5.0-9.0 Urine Specific [place] 1.022 1.001-1.035 Urine Protein 2+ H Negative Urine Ketones Negative Negative Urine Blood Negative Negative /uL Urine Nitrite Negative Negative Urine Bilirubin Negative Negative Urine Urobilinogen 2 H Negative mg/dL Urine Leukocyte Esterase Negative Negative /uL Urine RBC <1 0 - 3 /hpf Urine Microscopic WBC 1 0-3 /HPF Urine Squamous Epithelial Cells Few <5 /hpf Urine Bacteria None seen None Seen /hpf Urine Glucose Normal Normal mg/dL Urine Opiates Screen Neg NEGATIVE Urine Fentanyl Screen Neg NEGATIVE Urine Barbiturates Screen Neg NEGATIVE Urine Phencyclidine Screen Neg NEGATIVE Urine Amphetamines Screen Neg NEGATIVE Urine Benzodiazepines Screen Neg NEGATIVE Urine Cocaine Screen Neg NEGATIVE Urine Cannabinoids Screen Neg NEGATIVE Test 10/11/24 13:10 Range/Units Prothrombin Time 12.3 H 9.3-11.8 sec Prothrombin Time INR 1.18 H 0.9-1.15 Activated Partial Thromboplast Time 26.7 24.5-34.5 SEC Phosphorus Level 3.7 2.4-5.1 mg/dL B-Type Natriuretic Peptide 167.61 0-100 pg/mL Thyroid Stimulating Hormone (TSH) 2.29 0.55-4.78 uIU/mL Microbiology Date/Time Source Procedure Growth Status 10/11/24 13:00 Blood Blood Culture - Preliminary Resulted Assessment Acute on chronic decompensated HFpEF, NYHA class IV Persistent atrial fibrillation, Stage 3B, (on Pradaxa) Hypotension Bacteremia Right pleural effusion, moderate size Liver cirrhosis History of alcohol abuse History of tobacco use Morbid obesity Plan/Recommendation We will continue with the following plan/recommendations (): * Echocardiogram to evaluate cardiac function * Previous echocardiogram from 11/13/2023 reveals EF 55% * Diuresis as tolerated by patient * Strict intake and output, daily weights, maintain fluid restriction * [id number] VASc score: 2 points * Stop Eliquis at this time given positive FOBT; SCD's for now * Recommend no antiarrhythmic therapy given unknown duration of atrial fibrillation * Unable to initiate beta-suhn at this time given hypotension * Vasopressors for hemodynamic support * Monitor H&H Patient seen and examined at bedside with . Thank you for allowing us to care for this patient. Please call with any questions or concerns. Critical care time spent: 42 minutes This medical document was created using an electronic medical record system with voice recognition software and computerized dictation system. Although this document has been carefully reviewed, there might still be some phonetic and typographical errors. Occasional wrong-word or ``sound-alike substitutions may have occurred due to the inherent limitations of voice recognition software. These areas are purely typographical due to imperfections of the software programs and do not reflect any compromise in the patient's medical care. Please read the chart carefully and recognize, using context, where these substitutions have occurred. Plan discussed with: Patient NYHA Physical activity limitations: Class4(Severe)discomfort (w any activit,symptoms at rest) Date of Service: Oct 12, 2024 Billing Provider: FANNY ESTRELLA Cardiology Common Codes: [id number] INP/OBS CARE (High) Cardiology Consultation Codes: [id number] CONSULT <45MIN FANNY ESTRELLA Oct 12, 2024 11:00
--- NOTE | 2024-10-12 12:49 | DVHPN2 ---
Subjective Patient reports having shortness of breath, generalized swelling. Reviewed: Care Plan, H&P, Labs, Medications Changes from previous H/P or p: No Changes General: Per HPI, Chills Objective Vitals Vital Signs Date Time Temp Pulse Resp B/P (MAP) Pulse Ox O2 Delivery O2 Flow Rate FiO2 10/12/24 12:00 98.2 107 16 97/67 (77) 97 98.2 10/12/24 03:30 Room Air* 0 21 Intake/Output Intake and Output 10/12/24 07:00 Intake Total 634.20 ml Output Total 1000 ml Balance -365.80 ml Intake IV Total 634.20 ml Output Urine Total 1000 ml General Appearance: Alert, Oriented X3, Cooperative, No acute distress HEENT: Atraumatic, PERRLA Cardiovascular: Normal S1, Normal S2 Abdomen: Normal bowel sounds, Soft, No tenderness, No hepatospenomegaly, Other (Anasarca) Musculoskeletal: Normal sensory function, Normal motor function Neuro: Normal gait, Normal speech Psych/Mental Status: Mental status NL, Mood NL Medications Current Medications Medications Dose Ordered Sig/Mikey Route Start Time Stop Time Status Last Admin Dose Admin Norepinephrine Bitartrate 250 ml @ 3.75 mls/hr Q24H IV 10/11/24 12:45 10/12/24 05:51 15 MLS/HR Metronidazole 100 ml @ 100 mls/hr Q8HR IV 10/11/24 22:00 10/12/24 05:51 100 MLS/HR Enoxaparin Sodium 180 mg Q12HR SC 10/11/24 22:00 UNV Ferrous Sulfate 325 mg DAILY PO 10/12/24 10:00 10/12/24 10:00 325 MG Furosemide 40 mg BIDD IV 10/11/24 22:00 10/12/24 05:51 40 MG Sodium Chloride 10 ml Q8HR IV 10/11/24 22:00 10/12/24 05:47 10 ML Docusate Sodium 100 mg BIDPRN PRN PO 10/11/24 20:45 Acetaminophen 650 mg Q6HP PRN PO 10/11/24 20:45 Acetaminophen/ Hydrocodone Bitart 1 tab Q4HP PRN PO 10/11/24 20:45 Ondansetron HCl 4 mg Q4HP PRN IV 10/11/24 20:45 Apixaban 5 mg BID PO 10/11/24 22:00 10/12/24 10:00 5 MG Atorvastatin Calcium 40 mg HS PO 10/11/24 22:00 10/11/24 22:31 40 MG Piperacillin Sod/ Tazobactam Sod 100 ml @ 25 mls/hr Q8HR IV 10/12/24 06:00 10/12/24 07:29 25 MLS/HR Pantoprazole Sodium 40 mg DAILY@0600 PO 10/13/24 06:00 UNV Metolazone 5 mg DAILY PO 10/13/24 10:00 UNV Laboratory Results Laboratory Tests 10/12/24 03:08 Chemistry Test 10/11/24 13:10 10/12/24 03:08 Albumin 2.6 g/dL (3.2-4.8) L 2.4 g/dL (3.2-4.8) L Calcium Level 8.0 mg/dL (8.7-10.4) L 8.3 mg/dL (8.7-10.4) L Magnesium Level 1.7 mg/dL (1.6-2.6) 1.8 mg/dL (1.6-2.6) Phosphorus Level 3.7 mg/dL (2.4-5.1) Total Protein 4.8 g/dL (5.7-8.2) L 4.7 g/dL (5.7-8.2) L Coagulation Test 10/11/24 13:10 Prothrombin Time 12.3 sec (9.3-11.8) H Prothrombin Time INR 1.18 (0.9-1.15) H Activated Partial Thromboplast Time 26.7 SEC (24.5-34.5) Cardiac Markers Test 10/11/24 13:10 B-Type Natriuretic Peptide 167.61 pg/mL (0-100) LFT Test 10/11/24 13:10 10/12/24 03:08 Alanine Aminotransferase (ALT) 37 U/L (7-40) 33 U/L (7-40) Alkaline Phosphatase 107 U/L (46-116) 96 U/L (46-116) Aspartate Amino Transferase (AST) 46 U/L (13-40) H 45 U/L (13-40) H Total Bilirubin 0.9 mg/dL (0.2-1.0) 0.8 mg/dL (0.2-1.0) HgA1c, TSH Test 10/11/24 13:10 Thyroid Stimulating Hormone (TSH) 2.29 uIU/mL (0.55-4.78) Urinalysis Test 10/11/24 13:34 Urine Color Dark-yellow (Yellow) Urine Clarity Ex.turbid (Clear) Urine pH 5.5 (5.0-9.0) Urine Specific [place] 1.022 (1.001-1.035) Urine Protein 2+ (Negative) H Urine Ketones Negative (Negative) Urine Blood Negative /uL (Negative) Urine Nitrite Negative (Negative) Urine Bilirubin Negative (Negative) Urine Urobilinogen 2 mg/dL (Negative) H Urine Leukocyte Esterase Negative /uL (Negative) Urine RBC <1 /hpf (0 - 3) Urine Microscopic WBC 1 /HPF (0-3) Urine Squamous Epithelial Cells Few /hpf (<5) Urine Bacteria None seen /hpf (None Seen) Urine Glucose Normal mg/dL (Normal) Microbiology Microbiology Date/Time Source Procedure Growth Status 10/11/24 13:34 Voided Urine Urine Culture - Preliminary Resulted 10/11/24 13:00 Blood Blood Culture - Preliminary Resulted Labs and/or images reviewed: Labs reviewed by me, Image(s) reviewed by me Assessment/Plan Assessment/Plan Impression: -shock, questionable sepsis etiology -blood culture positive with beta-hemolytic strep. Questionable contamination. -probable hEFpEF -morbid obesity -right pleural effusion -atrial fibrillation -rule out sepsis -rule out GI bleed Plan: -continue norepinephrine drip -continue current anticoagulation -restart Lasix drip -increase metolazone 5 mg p.o. daily -fluid restriction -continue current antibiotic therapy -repeat blood cultures tomorrow -PICC line placement -daily labs -IR consultation for possible thoracentesis Critical care time spent with patient discussing and formulating plan of care: 40 minutes. This does not include time spent performing procedures. This medical document was created using an electronic medical record system with [employer] system. Although this document has been carefully reviewed, there may still be some phonetic and typographical errors. These areas are purely typographical due to imperfections of the software programs, and do not reflect any compromise in the patient's medical care. Plan discussed with: Patient, Other (RN) My Orders Orders - JASSI PEREYRA NP Procedure Category Date Status Time Cardiac DIET 10/12/24 Transmitted Diet-2gna,Lofat,Lochol Lunch Pantoprazole Tablet PHA 10/13/24 Logged (Protonix Tablet) 06:00 Metolazone (Zaroxolyn) PHA 10/13/24 Logged 10:00 * Picc Line Consult CONS 10/12/24 Verified 12:21 Furosemide Drip Lasix PHA 10/12/24 Verified 12:30 Date of Service: Oct 12, 2024 Billing Provider: JASSI PEREYRA NP Common Visit Codes: [id number] CARE 30-74 MIN JASSI PEREYRA NP Oct 12, 2024 12:49
[2024-10-12] MEDS: LIDOCAINE 1% (LOCAL ANESTH.) PF 5ml SDV ID ONE (16:01)
--- NOTE | 2024-10-12 16:21 | DVH ---
CHEST RADIOGRAPH Indication: S/P PICC LINE PLACEMENT Technique: Single frontal view of the chest was obtained COMPARISON: XY CHEST PORTABLE on DOS: 10/11/24, XY CHEST XRAY 1 VIEW on DOS: 11/12/23 FINDINGS: Lines and Tubes: Right PICC in satisfactory position overlying the superior vena cava. Lungs: Pulmonary vascular congestion Pleura: No effusion. No pneumothorax. Cardiomediastinal contours: Cardiomegaly Bones: Unremarkable IMPRESSION: Right PICC in satisfactory position.
[2024-10-12] MEDS: FUROSEMIDE INJECTION 100 MG in SODIUM CHL 0.9% 100 ML IV SCH (18:00)
[2024-10-12 19:30] VITALS: PULSE 99; RESP 12; O2SAT 98
[2024-10-12] MEDS: SODIUM CHLOR 0.9% PF (SALINE LOCK) 10ML VIAL/SYR IV SCH (21:46)
--- NOTE | 2024-10-12 23:12 | DVHINCON2 ---
Date of service: Oct 12, 2024 Referring Physician MARIIA Fan Reason for Consultation Acute hypoxic respiratory failure, pleural effusion, pulmonary edema History of Present Illness A 59-year-old man who presented to the ED on 10/11/24 with chief complaint of lower limb swelling which started approximately 1 month prior after an upper respiratory infection, but has been gradually getting worse until he presented with abdominal and scrotal edema in these past few days. He also reports dyspnea in functional class III, unintentional weight gain of 85 lb and chills. When evaluated in triage, patient presented sustained hypotension (81/40 mmHg). Denied chest pain, palpitations, syncope, productive cough, nausea, vomiting, diarrhea, bleeding, recent travel and motor or sensory deficits. Patient was admitted for further care and pulmonary consultation is requested for evaluation and management of acute hypoxic respiratory failure, pleural effusion and pulmonary edema. Review of Systems: 14-point review of systems negative unless otherwise noted above. Past Medical History: Congestive heart failure, persistent atrial fibrillation (chads Vasc 2/has bled2) under dabigatran, hyperlipidemia, alcoholic liver cirrhosis (has not consume alcohol for the past nine months) Past Surgical History: None Medications: Reviewed. Allergies: No known drug allergies. Family History: Father with MT. Social History: Former smoker. Patient has a five pack-year history, quit smoking approximately 10 years ago Patient states he has not had any alcohol intake for approximately six months No illicit drug use. Family History: FH: myocardial infarction G8 FATHER Allergies: Coded Allergies: NO KNOWN ALLERGIES (Unverified , 11/12/23) Home Meds Active Scripts Torsemide (Torsemide) 10 Mg Tab, 10 MG PO DAILY for 60 Days, #60 TAB Please start daily dose after completing furosemide 10 mg p.o. twice daily for 7 days. Prov:JASSI PEREYRA [employer] VOLTAGE ELECTRICIAN 11/15/23 Torsemide (Torsemide) 10 Mg Tab, 10 MG PO BID for 7 Days, #14 TAB Prov:JASSI PEREYRA [employer] VOLTAGE ELECTRICIAN 11/15/23 Reported Medications Metolazone (Metolazone) 2.5 Mg Tab, 1 TAB PO MWF 11/13/23 Potassium Chloride (K-Tab) 20 Meq Tab, 1 TAB PO DAILY 11/12/23 Dabigatran Etexilate Mesylate (Dabigatran Etexilate) 150 Mg Cap, 1 TAB PO BID 11/12/23 Atorvastatin Calcium (ATORVASTATIN CALCIUM) 40 Mg Tab, 1 TAB PO DAILY 11/12/23 Bisoprolol Fumarate (Bisoprolol Fumarate) 10 Mg Tab, 1 TAB PO DAILY 11/12/23 Lisinopril (Lisinopril) 20 Mg Tab, 1 TAB PO DAILY 11/12/23 Current Medications Current Medications Medications (Trade) Dose Ordered Sig/Mikey Route PRN Reason Start Time Stop Time Status Last Admin Ceftriaxone Sodium 50 ml @ 100 mls/hr DAILY@09 IV 10/12/24 09:00 10/11/24 21:13 DC Ferrous Sulfate 325 mg DAILY PO 10/12/24 10:00 10/12/24 10:00 Metolazone (Zaroxolyn) 2.5 mg MWF PO 10/14/24 10:00 10/12/24 12:21 DC Piperacillin Sod/ Tazobactam Sod 100 ml @ 25 mls/hr Q8HR IV 10/12/24 06:00 10/12/24 14:09 DC 10/12/24 07:29 Pantoprazole Sodium (Protonix Tablet) 40 mg DAILY@0600 PO 10/13/24 06:00 Metolazone (Zaroxolyn) 5 mg DAILY PO 10/13/24 10:00 Furosemide 100 mg/ Sodium Chloride 110 ml @ 11 mls/hr Q10H IV 10/12/24 12:30 10/12/24 22:30 Piperacillin Sod/ Tazobactam Sod 100 ml @ 25 mls/hr Q8H IV 10/12/24 15:00 10/12/24 22:56 Sodium Chloride (Saline Lock Ns) 10 ml QSHIFT@10,22 IV 10/12/24 22:00 10/12/24 21:46 Vital Signs Vital Signs Date Time Temp Pulse Resp B/P (MAP) Pulse Ox O2 Delivery O2 Flow Rate FiO2 10/12/24 22:30 115/82 10/12/24 20:30 107 15 93 10/12/24 19:30 99.3 99.3 10/12/24 19:30 Room Air* 0 21 Physical Exam Gen.: Patient lying in bed in no apparent distress. On supplemental oxygen. Head: Normocephalic, atraumatic. Eyes: EOMI/PERRLA. Ears: Normal hearing. Normal anatomy. Neck/trachea: Trachea midline, supple. Nose: Normal external anatomy. Mouth: Moist mucous membranes. Chest: Decreased air entry bilaterally. No wheezing or rhonchi. Cardiovascular: Positive S1, positive S2. Regular rate and rhythm. Abdomen: Positive bowel sounds in all 4 quadrants. Soft, non-tender, non- distended. : Deferred. Rectal: Deferred. Skin: Warm, dry. Intact. Extremities: 2+ radial pulses bilaterally. No lower extremity edema. Neuro: Awake, alert, oriented x3. No gross motor or sensory deficits. Cranial nerves II through XII intact. Gait not assessed. Labs/Diagnostic Data Labs Test 10/12/24 03:08 10/11/24 23:31 10/11/24 20:52 10/11/24 18:35 Range/Units White Blood Count 10.1 4.4-10.8 10^3/uL Red Blood Count 3.67 L 4.5-5.90 10^6/uL Hemoglobin 10.2 L 13.5-17.5 g/dL Hematocrit 30.2 L 41.0-53.0 % Mean Corpuscular Volume 82.2 80.0-100.0 fL Mean Corpuscular Hemoglobin 27.8 L 28.0-32.0 pg Mean Corpuscular Hemoglobin Concent 33.8 32.0-36.0 g/dL Red Cell Distribution Width 16.3 H 11.8-14.3 % Platelet Count 334 140-450 10^3/uL Mean Platelet Volume 6.2 L 6.9-10.8 fL Neutrophils (%) (Auto) 92.1 H 37.0-80.0 % Lymphocytes (%) (Auto) 1.7 L 10.0-50.0 % Monocytes (%) (Auto) 6.1 0.0-12.0 % Eosinophils (%) (Auto) 0.0 0.0-7.0 % Basophils (%) (Auto) 0.1 0.0-2.0 % Neutrophils # (Auto) 9.3 H 1.6-8.6 10 ^3/uL Lymphocytes # (Auto) 0.2 L 0.4-5.4 10 ^3/uL Monocytes # (Auto) 0.6 0-1.3 10 ^3/uL Eosinophils # (Auto) 0 0-0.8 10 ^3/uL Basophils # (Auto) 0 0-0.2 10 ^3/uL Nucleated Red Blood Cells 0.1 % Sodium Level 134 L 136-145 mmol/L Potassium Level 4.0 3.5-5.1 mmol/L Chloride Level 101 98-107 mmol/L Carbon Dioxide Level 26 20-31 mmol/L Anion Gap 7 5-15 Blood Urea Nitrogen 32 H 9-23 mg/dL Creatinine 1.17 0.700-1.30 mg/dL Glomerular Filtration Rate Calc 73 >90 mL/min BUN/Creatinine Ratio 27.4 H 10.0-20.0 Serum Glucose 134 H 74-106 mg/dL Calcium Level 8.3 L 8.7-10.4 mg/dL Magnesium Level 1.8 1.6-2.6 mg/dL Total Bilirubin 0.8 0.2-1.0 mg/dL Aspartate Amino Transferase (AST) 45 H 13-40 U/L Alanine Aminotransferase (ALT) 33 7-40 U/L Alkaline Phosphatase 96 46-116 U/L Total Protein 4.7 L 5.7-8.2 g/dL Albumin 2.4 L 3.2-4.8 g/dL Stool Occult Blood Positive Negative Stool Occult Blood Sample #2 Negative Stool Occult Blood Sample #3 Negative Ammonia 36 H 11-32 umol/L Iron Level 21 L 65-175 ug/dL Total Iron Binding Capacity 234 L 250-425 ug/dL Percent Iron Saturation 9.0 L 20-55 % Test 10/11/24 16:16 10/11/24 14:40 10/11/24 14:24 10/11/24 13:34 Range/Units Lactic Acid Level 2.0 0.4-2.0 mmol/L Troponin I High Sensitivity 26 </=54 ng/L Influenza Type A Antigen Negative Negative Influenza Type B Antigen Negative Negative SARS-CoV-2 Antigen (Rapid) Negative NEGATIVE Plasma/Serum Blood Alcohol 4.7 <10 mg/dL Urine Color Dark-yellow Yellow Urine Clarity Ex.turbid Clear Urine pH 5.5 5.0-9.0 Urine Specific [place] 1.022 1.001-1.035 Urine Protein 2+ H Negative Urine Ketones Negative Negative Urine Blood Negative Negative /uL Urine Nitrite Negative Negative Urine Bilirubin Negative Negative Urine Urobilinogen 2 H Negative mg/dL Urine Leukocyte Esterase Negative Negative /uL Urine RBC <1 0 - 3 /hpf Urine Microscopic WBC 1 0-3 /HPF Urine Squamous Epithelial Cells Few <5 /hpf Urine Bacteria None seen None Seen /hpf Urine Glucose Normal Normal mg/dL Urine Opiates Screen Neg NEGATIVE Urine Fentanyl Screen Neg NEGATIVE Urine Barbiturates Screen Neg NEGATIVE Urine Phencyclidine Screen Neg NEGATIVE Urine Amphetamines Screen Neg NEGATIVE Urine Benzodiazepines Screen Neg NEGATIVE Urine Cocaine Screen Neg NEGATIVE Urine Cannabinoids Screen Neg NEGATIVE Test 10/11/24 13:10 Range/Units Prothrombin Time 12.3 H 9.3-11.8 sec Prothrombin Time INR 1.18 H 0.9-1.15 Activated Partial Thromboplast Time 26.7 24.5-34.5 SEC Phosphorus Level 3.7 2.4-5.1 mg/dL B-Type Natriuretic Peptide 167.61 0-100 pg/mL Thyroid Stimulating Hormone (TSH) 2.29 0.55-4.78 uIU/mL Microbiology Date/Time Source Procedure Growth Status 10/11/24 13:34 Voided Urine Urine Culture - Preliminary Resulted 10/11/24 13:00 Blood Blood Culture - Preliminary NO GROWTH AFTER 24 HOURS OF INCUBATION. Resulted Assessment Impression: Acute hypoxic respiratory failure Dependence on supplemental oxygen Pleural effusion Septic shock Atelectasis Pulmonary edema CHF exacerbation Morbid obesity BMI 51.8 Atrial fibrillation Hx of nicotine dependence Plan: Supplemental oxygen 2 LPM NC Titrate to keep O2 sats above 92%. Taper O2 as tolerated. Obtain chest x-ray in AM to assess for interval changes. On pressors for hemodynamic support Levophed 8 mcg/min Titrate to keep mean arterial pressure greater than 65 mmHg Continue antibiotics Incentive spirometry Diurese to euvolemia w/ Lasix drip Monitor renal function. Monitor electrolytes. Supplement as necessary. Monitor ins and outs. Diet and lifestyle modifications for weight reduction Morbid obesity - complicates all care DVT prophylaxis. Prognosis: Poor given patient's multiple co-morbidities. Condition: Critical Rest of plan per hospitalist and other consultants. A total of 35 minutes of critical care time was spent reviewing the patient record, examining the patient, making a diagnostic and therapeutic plan, discussing this plan with the medical personnel, following up on diagnostic studies and following the patient for clinical stability excluding any and all procedures. At least 50% of this time was spent in direct, [id number] contact. Thank you Dr. Celis for allowing me to participate in this patient's care. Further recommendations will depend on the patient's clinical course. Please do not hesitate to contact me if you have any questions or concerns. This medical document was created using an electronic medical record system with [employer] computerized dictation system. Although these documentations are being carefully reviewed, there may still be some phonetic and typographical changes. The errors are purely typographical, due to imperfection on the software program, and do not reflect any compromise in the patient's medical care. Plan discussed with: Patient, Other (JOSE RAUL Barton/MARIIA Fan) SHIRAZ OSHEA MD Oct 12, 2024 23:11
--- NOTE | 2024-10-13 04:16 | DVH ---
EXAM: XY CHEST PORTABLE HISTORY: S/P DIURESIS COMPARISON: XY CHEST PORTABLE on DOS: 10/12/24, XY CHEST PORTABLE on DOS: 10/11/24, XY CHEST XRAY 1 VIEW on DOS: 11/12/23 TECHNIQUE: Portable AP view of the chest was performed. FINDINGS: Right upper extremity PICC line is re-identified. There is increased opacity in the right mid to lowe r lung. No pneumothorax. There is central interstitial prominence. The heart is enlarged. IMPRESSION: 1. Increased right basilar infiltrate and/or effusion. 2. Cardiomegaly and central pulmonary vascular congestion suggestive of mild CHF.
[2024-10-13] MEDS: PANTOPRAZOLE 40 MG TAB PO SCH (05:39)
[2024-10-13 06:02] LABS: Basophils # (auto) 0 10 ^3/uL (0-0.2); Basophils % (auto) 0.3 % (0.0-2.0); Eosinophils # (auto) 0.1 10 ^3/uL (0-0.8); Eosinophils % (auto) 0.9 % (0.0-7.0); Hematocrit 32.7 % (41.0-53.0); Lymphocytes # (auto) 0.4 10 ^3/uL (0.4-5.4); Lymphocytes % (auto) 3.8 % (10.0-50.0); Mean Corpuscular Hemoglobin 27.6 pg (28.0-32.0); Mean Corpuscular Hgb Conc. 33.7 g/dL (32.0-36.0); Monocytes # (auto) 1.2 10 ^3/uL (0-1.3); Monocytes % (auto) 12.5 % (0.0-12.0); Neutrophils # (auto) 8.2 10 ^3/uL (1.6-8.6); Neutrophils % (auto) 82.5 % (37.0-80.0); Platelet Count (auto) 360 10^3/uL (140-450); Red Blood Cells 3.99 10^6/uL (4.5-5.90); Red Cell Distribution Width 16.5 % (11.8-14.3); White Blood Cell 9.9 10^3/uL (4.4-10.8)
[2024-10-13 06:23] LABS: Alanine Aminotransferase 34 U/L (7-40); Alkaline Phosphatase 108 U/L (46-116); Anion Gap 7 (5-15); BUN/Creatinine Ratio 29.8 (10.0-20.0); Bilirubin, Total 0.4 mg/dL (0.2-1.0); Carbon Dioxide 29 mmol/L (20-31); Chloride 102 mmol/L (98-107); Magnesium 1.6 mg/dL (1.6-2.6); Sodium 138 mmol/L (136-145)
[2024-10-13 06:35] LABS: Albumin 2.7 g/dL (3.2-4.8); Aspartate Aminotransferase 42 U/L (13-40); Blood Urea Nitrogen 28 mg/dL (9-23); Calcium 8.4 mg/dL (8.7-10.4); Glucose 136 mg/dL (74-106); Potassium 3.2 mmol/L (3.5-5.1); Total Protein 5.2 g/dL (5.7-8.2)
[2024-10-13 09:00] VITALS: PULSE 96; RESP 15; O2SAT 100
--- NOTE | 2024-10-13 10:33 | DVHPN2 ---
Subjective Patient reports having shortness of breath, generalized swelling. Reviewed: Care Plan, H&P, Labs, Medications Changes from previous H/P or p: No Changes General: Per HPI, Chills Objective Vitals Vital Signs Date Time Temp Pulse Resp B/P (MAP) Pulse Ox O2 Delivery O2 Flow Rate FiO2 10/13/24 10:15 116/65 10/13/24 07:15 90 13 100 10/12/24 19:30 99.3 99.3 10/12/24 19:30 Room Air* 0 21 Intake/Output Intake and Output 10/13/24 07:00 Intake Total 934 ml Output Total 3200 ml Balance -2266 ml Intake IV Total 934 ml Output Urine Total 3200 ml General Appearance: Alert, Oriented X3, Cooperative, No acute distress HEENT: Atraumatic, PERRLA Cardiovascular: Normal S1, Normal S2 Abdomen: Normal bowel sounds, Soft, No tenderness, No hepatospenomegaly, Other (Anasarca) Musculoskeletal: Normal sensory function, Normal motor function Neuro: Normal gait, Normal speech Skin: Dry, Intact Psych/Mental Status: Mental status NL, Mood NL Medications Current Medications Medications Dose Ordered Sig/Mikey Route Start Time Stop Time Status Last Admin Dose Admin Norepinephrine Bitartrate 250 ml @ 3.75 mls/hr Q24H IV 10/11/24 12:45 10/12/24 22:20 15 MLS/HR Enoxaparin Sodium 180 mg Q12HR SC 10/11/24 22:00 UNV Ferrous Sulfate 325 mg DAILY PO 10/12/24 10:00 10/12/24 10:00 325 MG Sodium Chloride 10 ml Q8HR IV 10/11/24 22:00 10/13/24 05:33 10 ML Docusate Sodium 100 mg BIDPRN PRN PO 10/11/24 20:45 Acetaminophen 650 mg Q6HP PRN PO 10/11/24 20:45 Acetaminophen/ Hydrocodone Bitart 1 tab Q4HP PRN PO 10/11/24 20:45 Ondansetron HCl 4 mg Q4HP PRN IV 10/11/24 20:45 Atorvastatin Calcium 40 mg HS PO 10/11/24 22:00 10/12/24 21:46 40 MG Pantoprazole Sodium 40 mg DAILY@0600 PO 10/13/24 06:00 10/13/24 05:39 40 MG Metolazone 5 mg DAILY PO 10/13/24 10:00 Furosemide 100 mg/ Sodium Chloride 110 ml @ 11 mls/hr Q10H IV 10/12/24 12:30 10/12/24 22:30 11 MLS/HR Piperacillin Sod/ Tazobactam Sod 100 ml @ 25 mls/hr Q8H IV 10/12/24 15:00 10/13/24 06:42 25 MLS/HR Sodium Chloride 10 ml QSHIFT@10,22 IV 10/12/24 22:00 10/12/24 21:46 10 ML Potassium Chloride 20 meq DAILY PO 10/14/24 10:00 Magnesium Oxide 400 mg DAILY PO 10/13/24 10:15 Laboratory Results Laboratory Tests 10/13/24 05:40 Chemistry Test 10/13/24 05:40 Albumin 2.7 g/dL (3.2-4.8) L Calcium Level 8.4 mg/dL (8.7-10.4) L Magnesium Level 1.6 mg/dL (1.6-2.6) Total Protein 5.2 g/dL (5.7-8.2) L LFT Test 10/13/24 05:40 Alanine Aminotransferase (ALT) 34 U/L (7-40) Alkaline Phosphatase 108 U/L (46-116) Aspartate Amino Transferase (AST) 42 U/L (13-40) H Total Bilirubin 0.4 mg/dL (0.2-1.0) Urinalysis Test 10/11/24 13:34 Urine Color Dark-yellow (Yellow) Urine Clarity Ex.turbid (Clear) Urine pH 5.5 (5.0-9.0) Urine Specific [place] 1.022 (1.001-1.035) Urine Protein 2+ (Negative) H Urine Ketones Negative (Negative) Urine Blood Negative /uL (Negative) Urine Nitrite Negative (Negative) Urine Bilirubin Negative (Negative) Urine Urobilinogen 2 mg/dL (Negative) H Urine Leukocyte Esterase Negative /uL (Negative) Urine RBC <1 /hpf (0 - 3) Urine Microscopic WBC 1 /HPF (0-3) Urine Squamous Epithelial Cells Few /hpf (<5) Urine Bacteria None seen /hpf (None Seen) Urine Glucose Normal mg/dL (Normal) Microbiology Microbiology Date/Time Source Procedure Growth Status 10/11/24 13:34 Voided Urine Urine Culture - Preliminary Resulted 10/11/24 13:00 Blood Blood Culture - Preliminary NO GROWTH AFTER 24 HOURS OF INCUBATION. Resulted Labs and/or images reviewed: Labs reviewed by me, Image(s) reviewed by me Assessment/Plan Assessment/Plan Impression: -shock, questionable sepsis etiology -blood culture positive with beta-hemolytic strep. Questionable contamination. -probable hEFpEF -morbid obesity -right pleural effusion -atrial fibrillation -rule out sepsis -rule out GI bleed Plan: Events: Patient now on Levophed at 2 micrograms/minute. Patient -2.6 L in 24 hours. -continue norepinephrine drip -no active bleeding. H and H holding Continue Eliquis -K and Mag replacement -Continue Lasix drip and metolazone -fluid restriction -continue Zosyn -repeat blood cultures -repeat BNP in a.m. -IR consultation for possible thoracentesis Critical care time spent with patient discussing and formulating plan of care: 40 minutes. This does not include time spent performing procedures. This medical document was created using an electronic medical record system with [employer] dictation system. Although this document has been carefully reviewed, there may still be some phonetic and typographical errors. These areas are purely typographical due to imperfections of the software programs, and do not reflect any compromise in the patient's medical care. Plan discussed with: Patient, Other (RN) My Orders Orders - JASSI PEREYRA [employer]ABRICATOR Procedure Category Date Status Time Cardiac DIET 10/12/24 Transmitted Diet-2gna,Lofat,Lochol Lunch Pantoprazole Tablet PHA 10/13/24 In Process (Protonix Tablet) 06:00 Metolazone (Zaroxolyn) PHA 10/13/24 In Process 10:00 * Picc Line Consult CONS 10/12/24 Transmitted 12:21 Sodium Chl 0.9% PHA 10/12/24 In Process (So... W/Furosemide 12:30 Nursing Protocol Picc TEZ 10/12/24 In Process 15:55 Change Dressing Prn TEZ 10/12/24 In Process 15:55 PICC BD 10/12/24 Transmitted 15:55 Sodium Chloride Lock PHA 10/12/24 In Process (Saline Lock Ns) 22:00 Do Not Use Picc For TEZ 10/12/24 In Process Blood Cult 15:55 May Draw Blood From TEZ 10/12/24 In Process Picc 15:55 Chest Portable XY 10/12/24 Resulted 15:55 Ok To Use Picc TEZ 10/12/24 In Process 15:55 Change Picc Dressing TEZ 10/12/24 In Process Q7 Days 15:55 Blood Culture YESICA 10/13/24 Logged 10:01 Potassium Er Tablet PHA 10/14/24 In Process (Klor-Con Tablet) 10:00 Magnesium Oxide PHA 10/13/24 In Process Tablet (Mag-Ox Tablet) 10:15 Date of Service: Oct 13, 2024 Billing Provider: JASSI PEREYRA NP Common Visit Codes: [id number] CARE 30-74 MIN JASSI PEREYRA NP Oct 13, 2024 10:33
[2024-10-13] MEDS: POTASSIUM CHL 20 Meq TABLET PO ONE (10:51)
[2024-10-13] MEDS: MAGNESIUM OXIDE 400 MG TAB PO SCH (10:51)
[2024-10-13] MEDS: metOLazone 5 MG TAB PO SCH (10:52)
--- NOTE | 2024-10-13 13:34 | DVHPN2 ---
FANNY ESTRELLA [facility] 10/13/24 1334: Consult Progress Note Subjective Other Systems: Patient remains in atrial fibrillation on cardiac catheterization technologist Patient remains on Lasix drip and Levophed drip Objective vital signs Vital Sign Date Time Temp Pulse Resp B/P (MAP) Pulse Ox O2 Delivery O2 Flow Rate FiO2 10/13/24 11:45 101/66 10/13/24 11:32 110 10/13/24 07:15 13 100 10/12/24 19:30 99.3 99.3 10/12/24 19:30 Room Air* 0 21 Total Intake and Output 10/12/24 10/12/24 10/13/24 15:00 23:00 07:00 Intake Total 320 ml 326 ml 288 ml Output Total 800 ml 800 ml 1600 ml Balance -480 ml -474 ml -1312 ml medications Current Medications Medications Dose Ordered Sig/Mikey Route Start Time Stop Time Status Last Admin Dose Admin Norepinephrine Bitartrate 250 ml @ 3.75 mls/hr Q24H IV 10/11/24 12:45 10/12/24 22:20 15 MLS/HR Enoxaparin Sodium 180 mg Q12HR SC 10/11/24 22:00 UNV Ferrous Sulfate 325 mg DAILY PO 10/12/24 10:00 10/13/24 10:51 325 MG Sodium Chloride 10 ml Q8HR IV 10/11/24 22:00 10/13/24 05:33 10 ML Docusate Sodium 100 mg BIDPRN PRN PO 10/11/24 20:45 Acetaminophen 650 mg Q6HP PRN PO 10/11/24 20:45 Acetaminophen/ Hydrocodone Bitart 1 tab Q4HP PRN PO 10/11/24 20:45 Ondansetron HCl 4 mg Q4HP PRN IV 10/11/24 20:45 Atorvastatin Calcium 40 mg HS PO 10/11/24 22:00 10/12/24 21:46 40 MG Pantoprazole Sodium 40 mg DAILY@0600 PO 10/13/24 06:00 10/13/24 05:39 40 MG Metolazone 5 mg DAILY PO 10/13/24 10:00 10/13/24 10:52 5 MG Furosemide 100 mg/ Sodium Chloride 110 ml @ 11 mls/hr Q10H IV 10/12/24 12:30 2/2/25 10:51 11 MLS/HR Piperacillin Sod/ Tazobactam Sod 100 ml @ 25 mls/hr Q8H IV 10/12/24 15:00 10/13/24 06:42 25 MLS/HR Sodium Chloride 10 ml QSHIFT@10,22 IV 10/12/24 22:00 10/13/24 10:00 10 ML Potassium Chloride 20 meq DAILY PO 10/14/24 10:00 Magnesium Oxide 400 mg DAILY PO 10/13/24 10:15 10/13/24 10:51 400 MG Examination: GENERAL:Abnormal (Generalized weakness), LUNGS:Normal, CVS:Abnormal (Atrial fibrillation, uncontrolled rate), NEURO:Normal laboratory and microbiology Laboratory Tests 10/13/24 05:40 Test 10/13/24 05:40 Range/Units Serum Glucose 136 H 74-106 mg/dL Problem List/Assessment/Plan Problem List/Assessment/Plan Acute on chronic decompensated HFpEF, NYHA class IV Persistent atrial fibrillation, Stage 3B, (on Pradaxa) Hypotension Bacteremia Right pleural effusion, moderate size GI bleed Liver cirrhosis History of alcohol abuse History of tobacco use Morbid obesity Plan/Recommendation (): * Echocardiogram to evaluate cardiac function * Previous echocardiogram from 11/13/2023 reveals EF 55% * Diuresis as tolerated by patient; on Lasix drip * Strict intake and output, daily weights, maintain fluid restriction * [id number] VASc score: 2 points * Stop Eliquis at this time given positive FOBT; SCD's for now; resume to home Pradaxa when appropriate * Recommend no antiarrhythmic therapy given unknown duration of atrial fibrillation * Unable to initiate beta-shun at this time given hypotension * Vasopressors for hemodynamic support; titrate down as tolerated * Monitor H&H Patient seen and examined at bedside with . Thank you for allowing us to care for this patient. Please call with any questions or concerns. Critical care time spent: 38 minutes. This medical document was created using an electronic medical record system with voice recognition software and computerized dictation system. Although this document has been carefully reviewed, there might still be some phonetic and typographical errors. Occasional wrong-word or ``sound-alike substitutions may have occurred due to the inherent limitations of voice recognition software. These areas are purely typographical due to imperfections of the software programs and do not reflect any compromise in the patient's medical care. Please read the chart carefully and recognize, using context, where these substitutions have occurred. Plan discussed with: Patient Date of Service: Oct 13, 2024 Billing Provider: FANNY ESTRELLA Common Visit Codes: [id number] CARE 30-74 MIN DAQUAN COBURN MD 10/13/24 2016: Consult Progress Note Problem List/Assessment/Plan Problem List/Assessment/Plan Start heparin gtt without bolus, monitor H&H. Can transition to DOAC prior to dc. FANNY ESTRELLA Oct 13, 2024 13:34 DAQUAN COBURN MD Oct 13, 2024 20:16
--- NOTE | 2024-10-13 15:19 | DVHINCON2 ---
Date of service: Oct 13, [address] Celis Reason for Consultation Abdominal swelling scrotal swelling cirrhosis Hemoccult-positive stool History of Present Illness This 59-year-old male presented to the emergency room with complaints of shortness of breath lower limb swelling proximally one month prior to admission had some respiratory infection has been progressively getting worse with the abdominal swelling. Patient also had some hypotension in the ER patient has got history of alcoholic liver disease though not had any drinks for the last few months patient also has got atrial fibrillation congestive heart failure. Patient has no gross GI bleeding but Hemoccult was found to be positive and hence the reason for the GI consult No Gross BG GI bleeding at this time Past Medical History Congestive heart failure atrial fibrillation hyperlipidemia alcoholic liver disease Past Surgical History None Family History: FH: myocardial infarction G8 FATHER Family History Noncontributory Social History History of moderate drinking in the past Allergies: Coded Allergies: NO KNOWN ALLERGIES (Unverified , 11/12/23) Home Meds Active Scripts Torsemide (Torsemide) 10 Mg Tab, 10 MG PO DAILY for 60 Days, #60 TAB Please start daily dose after completing furosemide 10 mg p.o. twice daily for 7 days. Prov:JASSI PEREYRA [employer] BILLER 11/15/23 Torsemide (Torsemide) 10 Mg Tab, 10 MG PO BID for 7 Days, #14 TAB Prov:JASSI PEREYRA [employer] INS[employer] BILLER 11/15/23 Reported Medications Metolazone (Metolazone) 2.5 Mg Tab, 1 TAB PO MWF 11/13/23 Potassium Chloride (K-Tab) 20 Meq Tab, 1 TAB PO DAILY 11/12/23 Dabigatran Etexilate Mesylate (Dabigatran Etexilate) 150 Mg Cap, 1 TAB PO BID 11/12/23 Atorvastatin Calcium (ATORVASTATIN CALCIUM) 40 Mg Tab, 1 TAB PO DAILY 11/12/23 Bisoprolol Fumarate (Bisoprolol Fumarate) 10 Mg Tab, 1 TAB PO DAILY 11/12/23 Lisinopril (Lisinopril) 20 Mg Tab, 1 TAB PO DAILY 11/12/23 Current Medications Current Medications Medications (Trade) Dose Ordered Sig/Mikey Route PRN Reason Start Time Stop Time Status Last Admin Metolazone (Zaroxolyn) 2.5 mg MWF PO 10/14/24 10:00 10/12/24 12:21 DC Pantoprazole Sodium (Protonix Tablet) 40 mg DAILY@0600 PO 10/13/24 06:00 10/13/24 05:39 Metolazone (Zaroxolyn) 5 mg DAILY PO 10/13/24 10:00 10/13/24 10:52 Sodium Chloride (Saline Lock Ns) 10 ml QSHIFT@10,22 IV 10/12/24 22:00 10/13/24 10:00 Potassium Chloride (Klor-Con Tablet) 20 meq DAILY PO 10/14/24 10:00 Magnesium Oxide (Mag-Ox Tablet) 400 mg DAILY PO 10/13/24 10:15 10/13/24 10:51 Review of Systems Noncontributory Vital Signs Vital Signs Date Time Temp Pulse Resp B/P (MAP) Pulse Ox O2 Delivery O2 Flow Rate FiO2 10/13/24 11:45 101/66 10/13/24 11:32 110 10/13/24 10:30 19 95 10/13/24 07:30 98.1 98.1 10/12/24 19:30 Room Air* 0 21 Physical Exam Moderately built and nourished male in no acute distress but on oxygen it HEENT examination mild pallor no icterus Lungs clear Vascular unremarkable Abdomen soft with some mild fullness no rigidity no guarding Bowel sounds normal Neurological grossly intact Hemoglobin is 10.8 white count is 11.2 BUN 30 INR was 1.18 AST is borderline high of 46 otherwise normal bilirubin is 0.9 Labs/Diagnostic Data Labs Test 10/13/24 05:40 10/11/24 23:31 10/11/24 20:52 10/11/24 18:35 Range/Units White Blood Count 9.9 4.4-10.8 10^3/uL Red Blood Count 3.99 L 4.5-5.90 10^6/uL Hemoglobin 11.0 L 13.5-17.5 g/dL Hematocrit 32.7 L 41.0-53.0 % Mean Corpuscular Volume 82.0 80.0-100.0 fL Mean Corpuscular Hemoglobin 27.6 L 28.0-32.0 pg Mean Corpuscular Hemoglobin Concent 33.7 32.0-36.0 g/dL Red Cell Distribution Width 16.5 H 11.8-14.3 % Platelet Count 360 140-450 10^3/uL Mean Platelet Volume 6.2 L 6.9-10.8 fL Neutrophils (%) (Auto) 82.5 H 37.0-80.0 % Lymphocytes (%) (Auto) 3.8 L 10.0-50.0 % Monocytes (%) (Auto) 12.5 H 0.0-12.0 % Eosinophils (%) (Auto) 0.9 0.0-7.0 % Basophils (%) (Auto) 0.3 0.0-2.0 % Neutrophils # (Auto) 8.2 1.6-8.6 10 ^3/uL Lymphocytes # (Auto) 0.4 0.4-5.4 10 ^3/uL Monocytes # (Auto) 1.2 0-1.3 10 ^3/uL Eosinophils # (Auto) 0.1 0-0.8 10 ^3/uL Basophils # (Auto) 0 0-0.2 10 ^3/uL Nucleated Red Blood Cells 0.0 % Sodium Level 138 136-145 mmol/L Potassium Level 3.2 L 3.5-5.1 mmol/L Chloride Level 102 98-107 mmol/L Carbon Dioxide Level 29 20-31 mmol/L Anion Gap 7 5-15 Blood Urea Nitrogen 28 H 9-23 mg/dL Creatinine 0.94 0.700-1.30 mg/dL Glomerular Filtration Rate Calc 95 >90 mL/min BUN/Creatinine Ratio 29.8 H 10.0-20.0 Serum Glucose 136 H 74-106 mg/dL Calcium Level 8.4 L 8.7-10.4 mg/dL Magnesium Level 1.6 1.6-2.6 mg/dL Total Bilirubin 0.4 0.2-1.0 mg/dL Aspartate Amino Transferase (AST) 42 H 13-40 U/L Alanine Aminotransferase (ALT) 34 7-40 U/L Alkaline Phosphatase 108 46-116 U/L Total Protein 5.2 L 5.7-8.2 g/dL Albumin 2.7 L 3.2-4.8 g/dL Stool Occult Blood Positive Negative Stool Occult Blood Sample #2 Negative Stool Occult Blood Sample #3 Negative Ammonia 36 H 11-32 umol/L Iron Level 21 L 65-175 ug/dL Total Iron Binding Capacity 234 L 250-425 ug/dL Percent Iron Saturation 9.0 L 20-55 % Test 10/11/24 16:16 10/11/24 14:40 10/11/24 14:24 10/11/24 13:34 Range/Units Lactic Acid Level 2.0 0.4-2.0 mmol/L Troponin I High Sensitivity 26 </=54 ng/L Influenza Type A Antigen Negative Negative Influenza Type B Antigen Negative Negative SARS-CoV-2 Antigen (Rapid) Negative NEGATIVE Plasma/Serum Blood Alcohol 4.7 <10 mg/dL Urine Color Dark-yellow Yellow Urine Clarity Ex.turbid Clear Urine pH 5.5 5.0-9.0 Urine Specific [place] 1.022 1.001-1.035 Urine Protein 2+ H Negative Urine Ketones Negative Negative Urine Blood Negative Negative /uL Urine Nitrite Negative Negative Urine Bilirubin Negative Negative Urine Urobilinogen 2 H Negative mg/dL Urine Leukocyte Esterase Negative Negative /uL Urine RBC <1 0 - 3 /hpf Urine Microscopic WBC 1 0-3 /HPF Urine Squamous Epithelial Cells Few <5 /hpf Urine Bacteria None seen None Seen /hpf Urine Glucose Normal Normal mg/dL Urine Opiates Screen Neg NEGATIVE Urine Fentanyl Screen Neg NEGATIVE Urine Barbiturates Screen Neg NEGATIVE Urine Phencyclidine Screen Neg NEGATIVE Urine Amphetamines Screen Neg NEGATIVE Urine Benzodiazepines Screen Neg NEGATIVE Urine Cocaine Screen Neg NEGATIVE Urine Cannabinoids Screen Neg NEGATIVE Test 10/11/24 13:10 Range/Units Prothrombin Time 12.3 H 9.3-11.8 sec Prothrombin Time INR 1.18 H 0.9-1.15 Activated Partial Thromboplast Time 26.7 24.5-34.5 SEC Phosphorus Level 3.7 2.4-5.1 mg/dL B-Type Natriuretic Peptide 167.61 0-100 pg/mL Thyroid Stimulating Hormone (TSH) 2.29 0.55-4.78 uIU/mL Microbiology Date/Time Source Procedure Growth Status 10/11/24 13:34 Voided Urine Urine Culture - Final Complete 10/11/24 13:00 Blood Blood Culture - Preliminary NO GROWTH AFTER 48 HOURS OF INCUBATION. Resulted Assessment Food 59-year-old with complaints of lower extremity swelling with the abdominal pain fullness history of upper respiratory infection has history of chronic liver disease congestive heart failure hyperlipidemia was found to have Hemoccult-positive stools no gross GI bleeding clinical impression is possible pneumonia with sepsis anemia mild two two iron-deficiency congestive heart failure right pleural effusion suggestions will recommend to stabilize pulmonary solorzano monitor the hemoglobin and crit closely and if he has any gross GI bleeding may need some GI workup after stabilizing pulmonary solorzano For the time being there was no evidence of any acute GI bleeding or other problems at this time Plan/Recommendation We will recommend to follow the hemoglobin and LFTs closelly Symptomatic treatment for now Thank you Dr. Butcher Plan discussed with: Patient DE BUTCHER MD Oct 13, 2024 15:19
[2024-10-13 20:06] VITALS: PULSE 112; RESP 22; O2SAT 97
[2024-10-13 20:48] LABS: Basophils # (auto) 0 10 ^3/uL (0-0.2); Basophils % (auto) 0.1 % (0.0-2.0); Eosinophils # (auto) 0.1 10 ^3/uL (0-0.8); Eosinophils % (auto) 1.3 % (0.0-7.0); Hematocrit 33.7 % (41.0-53.0); Lymphocytes # (auto) 0.3 10 ^3/uL (0.4-5.4); Lymphocytes % (auto) 3.6 % (10.0-50.0); Mean Corpuscular Hemoglobin 27.1 pg (28.0-32.0); Mean Corpuscular Hgb Conc. 32.5 g/dL (32.0-36.0); Mean Corpuscular Volume 83.2 fL (80.0-100.0); Monocytes # (auto) 0.9 10 ^3/uL (0-1.3); Monocytes % (auto) 10.7 % (0.0-12.0); Neutrophils # (auto) 7.5 10 ^3/uL (1.6-8.6); Neutrophils % (auto) 84.3 % (37.0-80.0); Platelet Count (auto) 313 10^3/uL (140-450); Red Blood Cells 4.05 10^6/uL (4.5-5.90); Red Cell Distribution Width 16.9 % (11.8-14.3); White Blood Cell 8.8 10^3/uL (4.4-10.8)
[2024-10-13] MEDS: METOPROLOL TARTRATE 25 MG TAB PO SCH (21:17)
[2024-10-13 21:42] LABS: INR 1.14 (0.9-1.15); Partial Thromboplastin Time 28.8 SEC (24.5-34.5); Prothrombin Time 11.9 sec (9.3-11.8)
[2024-10-13] MEDS: HEPARIN SODIUM (PORCINE) 5000 UNITS/ML 1ML VIAL IV ONE ×2 (22:00→22:32)
[2024-10-13] MEDS: HEPARIN DRIP/D5W 100UNITS/ML 250 ML IV SCH (22:30)
--- NOTE | 2024-10-13 23:04 | DVHPN2 ---
Progress Note - Dictate Date Seen: Oct 13, 2024 Medical Necessity Reason Pt with a Central, PICC or Fol: Yes The following are medically ne: Aguayo Catheter Reason for aguayo catheter: Strict I&O Subjective Patient seen and examined at bedside. Remains on supplemental oxygen Overnight events reviewed. vital signs Vital Sign Date Time Temp Pulse Resp B/P (MAP) Pulse Ox O2 Delivery O2 Flow Rate FiO2 10/13/24 22:00 97.9 116 17 98/61 (73) 99 97.9 10/13/24 20:06 Nasal Cannula* 2 28 Total Intake and Output 10/12/24 10/12/24 10/13/24 15:00 23:00 07:00 Intake Total 320 ml 326 ml 288 ml Output Total 800 ml 800 ml 4400 ml Balance -480 ml -474 ml -4112 ml medications Current Medications Medications Dose Ordered Sig/Mikey Route Start Time Stop Time Status Last Admin Dose Admin Enoxaparin Sodium 180 mg Q12HR SC 10/11/24 22:00 UNV Ferrous Sulfate 325 mg DAILY PO 10/12/24 10:00 10/13/24 10:51 325 MG Sodium Chloride 10 ml Q8HR IV 10/11/24 22:00 10/13/24 21:17 10 ML Docusate Sodium 100 mg BIDPRN PRN PO 10/11/24 20:45 Acetaminophen 650 mg Q6HP PRN PO 10/11/24 20:45 Acetaminophen/ Hydrocodone Bitart 1 tab Q4HP PRN PO 10/11/24 20:45 Ondansetron HCl 4 mg Q4HP PRN IV 10/11/24 20:45 Atorvastatin Calcium 40 mg HS PO 10/11/24 22:00 10/13/24 22:28 40 MG Pantoprazole Sodium 40 mg DAILY@0600 PO 10/13/24 06:00 10/13/24 05:39 40 MG Metolazone 5 mg DAILY PO 10/13/24 10:00 10/13/24 10:52 5 MG Furosemide 100 mg/ Sodium Chloride 110 ml @ 11 mls/hr Q10H IV 10/12/24 12:30 10/13/24 20:00 11 MLS/HR Piperacillin Sod/ Tazobactam Sod 100 ml @ 25 mls/hr Q8H IV 10/12/24 15:00 10/13/24 15:53 25 MLS/HR Sodium Chloride 10 ml QSHIFT@10,22 IV 10/12/24 22:00 10/13/24 22:06 10 ML Potassium Chloride 20 meq DAILY PO 10/14/24 10:00 Magnesium Oxide 400 mg DAILY PO 10/13/24 10:15 10/13/24 10:51 400 MG Metoprolol Tartrate 12.5 mg BID PO 10/13/24 22:00 Heparin Sodium/ Dextrose 250 ml @ 10 mls/hr Q24H IV 10/13/24 22:30 10/13/24 22:30 10 MLS/HR objective Gen.: Patient lying in bed in no apparent distress. On supplemental oxygen. Head: Normocephalic, atraumatic. Eyes: EOMI/PERRLA. Ears: Normal hearing. Normal anatomy. Neck/trachea: Trachea midline, supple. Nose: Normal external anatomy. Mouth: Moist mucous membranes. Chest: Decreased air entry bilaterally. No wheezing or rhonchi. Cardiovascular: Positive S1, positive S2. Regular rate and rhythm. Abdomen: Positive bowel sounds in all 4 quadrants. Soft, non-tender, non- distended. : Deferred. Rectal: Deferred. Skin: Warm, dry. Intact. Extremities: 2+ radial pulses bilaterally. No lower extremity edema. Neuro: Awake, alert, oriented x3. No gross motor or sensory deficits. Cranial nerves II through XII intact. Gait not assessed. laboratory and microbiology Laboratory Tests 10/13/24 20:28 10/13/24 05:40 Test 10/13/24 05:40 Range/Units Serum Glucose 136 H 74-106 mg/dL Assessment/Plan Impression: Acute hypoxic respiratory failure Dependence on supplemental oxygen Pleural effusion Septic shock Atelectasis Pulmonary edema CHF exacerbation Morbid obesity BMI 51.8 Atrial fibrillation Hx of nicotine dependence Events: Remains on supplemental oxygen, 2 LPM NC Taper O2 as tolerated CXR demonstrates increased right basilar opacities, pleural effusion and pulmonary vascular congestion. On heparin drip. Off pressors, hemodynamically stable. Continue antibiotics for UTI. Blood cultures show group C Streptococcus. Incentive spirometry Iron supplementation Protonix for GI prophylaxis Diurese to euvolemia w/ Lasix drip + metolazone Monitor renal function. Monitor electrolytes. Supplement as necessary. Supplement potassium. Labs and imaging reviewed. Rest of plan as noted below. Plan: Supplemental oxygen Titrate to keep O2 sats above 92%. Pressors if necessary for hemodynamic support Titrate to keep mean arterial pressure greater than 65 mmHg Continue antibiotics Incentive spirometry Diurese to euvolemia Monitor renal function. Monitor electrolytes. Supplement as necessary. Monitor ins and outs. Diet and lifestyle modifications for weight reduction Morbid obesity - complicates all care DVT prophylaxis. Prognosis: Poor given patient's multiple co-morbidities. Condition: Critical Rest of plan per hospitalist and other consultants. A total of 35 minutes of critical care time was spent reviewing the patient record, examining the patient, making a diagnostic and therapeutic plan, discussing this plan with the medical personnel, following up on diagnostic studies and following the patient for clinical stability excluding any and all procedures. At least 50% of this time was spent in direct, [id number] contact. Thank you Dr. Celis for allowing me to participate in this patient's care. Further recommendations will depend on the patient's clinical course. Please do not hesitate to contact me if you have any questions or concerns. This medical document was created using an electronic medical record system with [employer] dictation system. Although these documentations are being carefully reviewed, there may still be some phonetic and typographical changes. The errors are purely typographical, due to imperfection on the software program, and do not reflect any compromise in the patient's medical care. Plan discussed with: Other (RN) Critical Care Time(min): 35 SHIRAZ OSHEA MD Oct 13, 2024 23:04
[2024-10-13] MEDS: DIGOXIN (250MCG/ML) 2 ML AMPULE IV ONE (23:17)
[2024-10-14 00:02] LABS: Potassium 2.8 mmol/L (3.5-5.1)
[2024-10-14 00:13] LABS: Magnesium 1.6 mg/dL (1.6-2.6)
[2024-10-14] MEDS: DIGOXIN (250MCG/ML) 2 ML AMPULE IV ONE (00:26)
[2024-10-14] MEDS: POTASSIUM CHL 20 Meq TABLET PO ONE ×2 (00:33→08:31)
[2024-10-14 04:32] LABS: Basophils # (auto) 0 10 ^3/uL (0-0.2); Basophils % (auto) 0.1 % (0.0-2.0); Eosinophils # (auto) 0.2 10 ^3/uL (0-0.8); Eosinophils % (auto) 2.4 % (0.0-7.0); Hematocrit 31.4 % (41.0-53.0); Hemoglobin 10.4 g/dL (13.5-17.5); Lymphocytes # (auto) 0.4 10 ^3/uL (0.4-5.4); Lymphocytes % (auto) 5.1 % (10.0-50.0); Mean Corpuscular Hemoglobin 27.2 pg (28.0-32.0); Mean Corpuscular Hgb Conc. 33.2 g/dL (32.0-36.0); Monocytes # (auto) 0.9 10 ^3/uL (0-1.3); Monocytes % (auto) 10.9 % (0.0-12.0); Neutrophils # (auto) 6.8 10 ^3/uL (1.6-8.6); Neutrophils % (auto) 81.5 % (37.0-80.0); Nucleated Red Blood Cells % 0.1 %; Platelet Count (auto) 310 10^3/uL (140-450); Red Blood Cells 3.83 10^6/uL (4.5-5.90); Red Cell Distribution Width 16.3 % (11.8-14.3); White Blood Cell 8.4 10^3/uL (4.4-10.8)
[2024-10-14 04:47] LABS: INR 1.14 (0.9-1.15); Partial Thromboplastin Time 36.5 SEC (24.5-34.5); Prothrombin Time 11.9 sec (9.3-11.8)
[2024-10-14 04:48] LABS: Alanine Aminotransferase 32 U/L (7-40); Alkaline Phosphatase 98 U/L (46-116); Anion Gap 7 (5-15); BUN/Creatinine Ratio 21.6 (10.0-20.0); Blood Urea Nitrogen 19 mg/dL (9-23); Glucose 104 mg/dL (74-106); Sodium 139 mmol/L (136-145)
[2024-10-14 04:49] LABS: Bilirubin, Total 0.4 mg/dL (0.2-1.0)
[2024-10-14 04:50] LABS: Albumin 2.5 g/dL (3.2-4.8); Aspartate Aminotransferase 50 U/L (13-40); Calcium 8.4 mg/dL (8.7-10.4); Carbon Dioxide 35 mmol/L (20-31); Chloride 97 mmol/L (98-107); Magnesium 1.6 mg/dL (1.6-2.6); Potassium 2.8 mmol/L (3.5-5.1); Total Protein 5.1 g/dL (5.7-8.2)
[2024-10-14] MEDS: HEPARIN DRIP/D5W 100UNITS/ML 250 ML IV SCH ×2 (05:02→18:57)
--- NOTE | 2024-10-14 07:47 | DVH ---
ULTRASOUND OF SCROTUM AND CONTENTS. INDICATION: swelling/painful COMPARISON: None TECHNIQUE: Multiple real-time grayscale sonographic and color and duplex Doppler images of the scrotu m and its contents were obtained. FINDINGS: The right testicle measures 2.6 x 2.0 x 2.8 cm. The left testicle measures 2.6 x 2.6 x 2.0 cm. Both testicles demonstrate homogeneous echotexture without evidence of focal lesions. Subsequent color and duplex Doppler interrogation of the testes demonstrated symmetric normal vascula r flow to both testicles. No focal areas of hyperemia were seen. Diffuse scrotal wall edema and thickening which is nonspecific . IMPRESSION: Diffuse nonspecific scrotal wall edema and thickening which can be seen in the setting of fluid overl oad state or infection.
--- NOTE | 2024-10-14 07:47 | DVH ---
HISTORY: PICC LINE PLACEMENT TECHNIQUE: Ultrasound images were obtained for PICC line placement. FINDINGS/IMPRESSION: Refer to operative report for further evaluation.
[2024-10-14] MEDS: POTASSIUM EFFERVESENT TAB 25 MEQ PO ONE ×2 (08:15→17:44)
--- NOTE | 2024-10-14 08:22 | DVHPN2 ---
Subjective Patient reports having shortness of breath, generalized swelling. Reviewed: Care Plan, H&P, Labs, Medications Changes from previous H/P or p: No Changes General: Per HPI, Chills Objective Vitals Vital Signs Date Time Temp Pulse Resp B/P (MAP) Pulse Ox O2 Delivery O2 Flow Rate FiO2 10/14/24 07:00 98.0 112 19 108/63 (78) 96 98.0 10/13/24 20:06 Nasal Cannula* 2 28 Intake/Output Intake and Output 10/14/24 07:00 Intake Total 1172 ml Output Total 63870 ml Balance -26692 ml Intake Oral 750 ml IV Total 422 ml Output Urine Total 23913 ml General Appearance: Alert, Oriented X3, Cooperative, No acute distress HEENT: Atraumatic, PERRLA Cardiovascular: Normal S1, Normal S2 Abdomen: Normal bowel sounds, Soft, No tenderness, No hepatospenomegaly, Other (Anasarca) Musculoskeletal: Normal sensory function, Normal motor function Neuro: Normal gait, Normal speech Skin: Dry, Intact Psych/Mental Status: Mental status NL, Mood NL Medications Current Medications Medications Dose Ordered Sig/Mikey Route Start Time Stop Time Status Last Admin Dose Admin Enoxaparin Sodium 180 mg Q12HR SC 10/11/24 22:00 UNV Ferrous Sulfate 325 mg DAILY PO 10/12/24 10:00 10/13/24 10:51 325 MG Sodium Chloride 10 ml Q8HR IV 10/11/24 22:00 10/14/24 05:36 10 ML Docusate Sodium 100 mg BIDPRN PRN PO 10/11/24 20:45 Acetaminophen 650 mg Q6HP PRN PO 10/11/24 20:45 Acetaminophen/ Hydrocodone Bitart 1 tab Q4HP PRN PO 10/11/24 20:45 Ondansetron HCl 4 mg Q4HP PRN IV 10/11/24 20:45 Atorvastatin Calcium 40 mg HS PO 10/11/24 22:00 10/13/24 22:28 40 MG Pantoprazole Sodium 40 mg DAILY@0600 PO 10/13/24 06:00 10/14/24 06:07 40 MG Metolazone 5 mg DAILY PO 10/13/24 10:00 10/13/24 10:52 5 MG Furosemide 100 mg/ Sodium Chloride 110 ml @ 11 mls/hr Q10H IV 10/12/24 12:30 10/14/24 04:30 11 MLS/HR Piperacillin Sod/ Tazobactam Sod 100 ml @ 25 mls/hr Q8H IV 10/12/24 15:00 10/14/24 07:00 25 MLS/HR Sodium Chloride 10 ml QSHIFT@10,22 IV 10/12/24 22:00 10/13/24 22:06 10 ML Potassium Chloride 20 meq DAILY PO 10/14/24 10:00 Magnesium Oxide 400 mg DAILY PO 10/13/24 10:15 10/13/24 10:51 400 MG Metoprolol Tartrate 12.5 mg BID PO 10/13/24 22:00 Heparin Sodium/ Dextrose 250 ml @ 12 mls/hr [id number] IV 10/14/24 05:00 10/14/24 05:02 12 MLS/HR Laboratory Results Laboratory Tests 10/14/24 04:02 Chemistry Test 10/13/24 23:25 10/14/24 04:02 Magnesium Level 1.6 mg/dL (1.6-2.6) 1.6 mg/dL (1.6-2.6) Albumin 2.5 g/dL (3.2-4.8) L Calcium Level 8.4 mg/dL (8.7-10.4) L Total Protein 5.1 g/dL (5.7-8.2) L Coagulation Test 10/13/24 20:28 10/14/24 04:02 Prothrombin Time 11.9 sec (9.3-11.8) H 11.9 sec (9.3-11.8) H Prothrombin Time INR 1.14 (0.9-1.15) 1.14 (0.9-1.15) Activated Partial Thromboplast Time 28.8 SEC (24.5-34.5) 36.5 SEC (24.5-34.5) H LFT Test 10/14/24 04:02 Alanine Aminotransferase (ALT) 32 U/L (7-40) Alkaline Phosphatase 98 U/L (46-116) Aspartate Amino Transferase (AST) 50 U/L (13-40) H Total Bilirubin 0.4 mg/dL (0.2-1.0) Urinalysis Test 10/11/24 13:34 Urine Color Dark-yellow (Yellow) Urine Clarity Ex.turbid (Clear) Urine pH 5.5 (5.0-9.0) Urine Specific [place] 1.022 (1.001-1.035) Urine Protein 2+ (Negative) H Urine Ketones Negative (Negative) Urine Blood Negative /uL (Negative) Urine Nitrite Negative (Negative) Urine Bilirubin Negative (Negative) Urine Urobilinogen 2 mg/dL (Negative) H Urine Leukocyte Esterase Negative /uL (Negative) Urine RBC <1 /hpf (0 - 3) Urine Microscopic WBC 1 /HPF (0-3) Urine Squamous Epithelial Cells Few /hpf (<5) Urine Bacteria None seen /hpf (None Seen) Urine Glucose Normal mg/dL (Normal) Microbiology Microbiology Date/Time Source Procedure Growth Status 10/11/24 13:34 Voided Urine Urine Culture - Final Complete 10/11/24 13:00 Blood Blood Culture - Preliminary NO GROWTH AFTER 48 HOURS OF INCUBATION. Resulted Labs and/or images reviewed: Labs reviewed by me, Image(s) reviewed by me Assessment/Plan Assessment/Plan Impression: -shock, questionable sepsis etiology -blood culture positive with beta-hemolytic strep. Questionable contamination. -probable hEFpEF -morbid obesity -right pleural effusion -atrial fibrillation -rule out sepsis -rule out GI bleed Plan: Events: Patient was weaned off norepinephrine. Patient with significant increase in urine output. No increase signs of GI bleed. Repeat FOBT -continue norepinephrine drip -patient change to heparin drip from Eliquis -K and Mag replacement -Continue Lasix drip and metolazone -fluid restriction -continue Zosyn -repeat blood cultures -repeat BNP in a.m. -IR consultation for possible thoracentesis Critical care time spent with patient discussing and formulating plan of care: 40 minutes. This does not include time spent performing procedures. This medical document was created using an electronic medical record system with [employer] dictation system. Although this document has been carefully reviewed, there may still be some phonetic and typographical errors. These areas are purely typographical due to imperfections of the software programs, and do not reflect any compromise in the patient's medical care. Plan discussed with: Patient, Other My Orders Orders - JASSI PEREYRA NP Procedure Category Date Status Time Blood Culture YESICA 10/13/24 In Process 10:01 Potassium Er Tablet PHA 10/14/24 In Process (Klor-Con Tablet) 10:00 Magnesium Oxide PHA 10/13/24 In Process Tablet (Mag-Ox Tablet) 10:15 Transfer Orders XFER 10/13/24 Transmitted 16:33 Stool Occult Blood LAB 10/14/24 Logged 07:12 Potassium Effervesent PHA 10/14/24 Transmitted Tab (Klor-Con/Ef) 08:15 Potassium Chl Marc PHA 10/14/24 Transmitted KCL 08:15 Potassium LAB 10/14/24 Logged 15:00 Magnesium LAB 10/14/24 Logged 15:00 Date of Service: Oct 14, 2024 Billing Provider: JASSI EPREYRA NP Common Visit Codes: [id number] INP/OBS CARE(HIGH) JASSI PEREYRA NP Oct 14, 2024 08:22
[2024-10-14] MEDS: MAGNESIUM SULFATE 1GM/100ML 100 ML IV ONE ×2 (08:31→17:43)
[2024-10-14 09:00] VITALS: PULSE 108; RESP 17; O2SAT 97
[2024-10-14] MEDS ORDERED: metOLazone 5 MG TAB PO SCH (10:00)
--- NOTE | 2024-10-14 11:02 | DVH ---
US THORACENTESIS, HISTORY: right pleural effusion PROCEDURE: Informed consent was obtained. The patient was decubitus on the bed. A limited localizatio n ultrasound of the right/left thorax was obtained, and the optimal approach was marked on the skin. The area was prepped with chlorhexidine which was allowed to dry and draped in the usual sterile [facility] ion. Time out was performed. The skin and the soft tissues were infiltrated with 1% lidocaine. A 5.5 Spanish centesis needle catheter was advanced into right pleural space. Following aspiration of fluid, the catheter was advanced and the needle removed. About 1000 cc of fluid was drained. Specimen/s was /were sent for appropriate cultures/cytology/cultures and cytology. No immediate complication was pablito ntified. FINDINGS: Moderate right pleural effusion. Aspirated fluid is clear and serous. IMPRESSION: Right thoracentesis with 1L removed.
--- NOTE | 2024-10-14 11:12 | DVH ---
EXAM: CHEST PORTABLE Indication: Post thoracentesis Technique: Single frontal view of the chest was obtained Comparison: XY CHEST PORTABLE on DOS: 10/13/24, XY CHEST PORTABLE on DOS: 10/12/24, XY CHEST PORTABLE on DOS: 10/11/24, XY CHEST XRAY 1 VIEW on DOS: 11/12/23 FINDINGS: Lines and Tubes: Right PICC tip projects over the superior vena cava. Lungs: No focal consolidation. Pleura: Interval decrease in right pleural effusion compared to prior exam. No pneumothorax. Cardiomediastinal contours: Unremarkable Bones: No acute osseous abnormality. IMPRESSION: Interval decrease in right pleural effusion compared to prior exam.
[2024-10-14] MEDS: POTASSIUM CHL 20MEQ/100ML 100 ML IV SCH (11:21)
[2024-10-14] MEDS: POTASSIUM CHL 20 Meq TABLET PO SCH (11:22)
[2024-10-14 11:40] LABS: INR 1.15 (0.9-1.15)
[2024-10-14 13:00] VITALS: BP 115/58; PULSE 100; RESP 20; TEMP 98.1; O2SAT 92
[2024-10-14 14:30] LABS: Potassium 2.7 mmol/L (3.5-5.1)
[2024-10-14 14:32] LABS: Magnesium 1.7 mg/dL (1.6-2.6)
[2024-10-14 14:52] VITALS: RESP 16; O2SAT 95
[2024-10-14] MEDS: HYDROcodone-ACET 5/325MG TAB PO PRN (15:31)
--- NOTE | 2024-10-14 15:59 | DVHPN2 ---
Consult Progress Note Date Seen: Oct 14, 2024 Subjective Other Systems: Denies any active cardiac symptoms Objective vital signs Vital Sign Date Time Temp Pulse Resp B/P (MAP) Pulse Ox O2 Delivery O2 Flow Rate FiO2 10/14/24 15:12 114/61 10/14/24 13:00 98.1 100 20 92 98.1 10/14/24 09:00 Nasal Cannula* 3 32 Total Intake and Output 10/13/24 10/13/24 10/14/24 15:00 23:00 07:00 Intake Total 88 ml 452 ml 632 ml Output Total 1150 ml 5700 ml 7325 ml Balance -1062 ml -5248 ml -6693 ml medications Current Medications Medications Dose Ordered Sig/Mikey Route Start Time Stop Time Status Last Admin Dose Admin Enoxaparin Sodium 180 mg Q12HR SC 10/11/24 22:00 UNV Ferrous Sulfate 325 mg DAILY PO 10/12/24 10:00 10/14/24 11:22 325 MG Sodium Chloride 10 ml Q8HR IV 10/11/24 22:00 10/14/24 14:00 10 ML Docusate Sodium 100 mg BIDPRN PRN PO 10/11/24 20:45 Acetaminophen 650 mg Q6HP PRN PO 10/11/24 20:45 Acetaminophen/ Hydrocodone Bitart 1 tab Q4HP PRN PO 10/11/24 20:45 10/14/24 15:31 1 TAB Ondansetron HCl 4 mg Q4HP PRN IV 10/11/24 20:45 Atorvastatin Calcium 40 mg HS PO 10/11/24 22:00 10/13/24 22:28 40 MG Pantoprazole Sodium 40 mg DAILY@0600 PO 10/13/24 06:00 10/14/24 06:07 40 MG Metolazone 5 mg DAILY PO 10/13/24 10:00 10/14/24 11:37 5 MG Furosemide 100 mg/ Sodium Chloride 110 ml @ 11 mls/hr Q10H IV 10/12/24 12:30 10/14/24 15:12 11 MLS/HR Piperacillin Sod/ Tazobactam Sod 100 ml @ 25 mls/hr Q8H IV 10/12/24 15:00 10/14/24 15:12 25 MLS/HR Sodium Chloride 10 ml QSHIFT@10,22 IV 10/12/24 22:00 10/14/24 10:00 10 ML Potassium Chloride 20 meq DAILY PO 10/14/24 10:00 10/14/24 11:22 20 MEQ Magnesium Oxide 400 mg DAILY PO 10/13/24 10:15 10/14/24 11:22 400 MG Metoprolol Tartrate 12.5 mg BID PO 10/13/24 22:00 Heparin Sodium/ Dextrose 250 ml @ 14 mls/hr [id number] IV 10/14/24 12:30 Examination: GENERAL:Abnormal, LUNGS:Abnormal (Diminished), CVS:Abnormal (BLE edam +++. A-fib 100s-110s bpm), SKIN:Abnormal (RLE erythema, hot to touch), NEURO:Normal, :Abnormal (Scrotal edema) laboratory and microbiology Laboratory Tests 10/14/24 14:00 10/14/24 04:02 Test 10/14/24 04:02 Range/Units Serum Glucose 104 74-106 mg/dL Problem List/Assessment/Plan Problem List/Assessment/Plan Septic shock, ?lower extremity cellulitis Acute on chronic decompensated HFpEF, NYHA class IV Persistent atrial fibrillation, Stage 3B, (on Pradaxa) Right pleural effusion status post R thoracentesis ? Lower GI bleed Liver cirrhosis Chronic venous stasis History of alcohol/tobacco abuse Morbid obesity Plan/Recommendation (Dr. Ramírez) * Echocardiogram revealed LVEF 55% * Preload reduction, continue Lasix drip * Strict I&Os, daily weights, maintain fluid restriction * Heparin drip per pharmacy protocol. Monitor H&H closely. Transition to Pradaxa when appropriate * [id number] VASc Score: 2 points. HAS-BLED Score: 2 points. * Rate control, metoprolol therapy. Uptitrate as tolerated * No antiarrhythmic therapy. Persistent atrial fibrillation * Replete electrolytes as necessary, K>4 and Mg>2 * BLE venous US rule out DVT Previously seen in Cardiology [address] with missed appointment on 03/19/2024. Re-scheduled for follow-up on 11/14/2024 at 1515. Thank you for allowing us to care for this patient. Please call with any questions or concerns. This medical document was created using an electronic medical record system with voice recognition software and computerized dictation system. Although this document has been carefully reviewed, there might still be some phonetic and typographical errors. Occasional wrong-word or ``sound-alike substitutions may have occurred due to the inherent limitations of voice recognition software. These areas are purely typographical due to imperfections of the software programs and do not reflect any compromise in the patient's medical care. Please read the chart carefully and recognize, using context, where these substitutions have occurred. Plan discussed with: Patient, Other Date of Service: Oct 14, 2024 Billing Provider: MELISSA SALAS Cardiology Common Codes: [id number] HOSP CARE(High MELISSA SALAS Oct 14, 2024 15:59
[2024-10-14 16:08] LABS: Body Fluid Red Blood Cells 545 CUMM (0-2000); Body Fluid White Blood Cells 477 CUMM (0-200)
--- NOTE | 2024-10-14 16:27 | DVH ---
BILATERAL LOWER EXTREMITY VENOUS DOPPLER CLINICAL HISTORY: Edema R>L Technique: Duplex Doppler evaluation of the deep venous systems of both lower extremities from the co mmon femoral veins to the popliteal veins including color Doppler and spectral/pulsed waveform analys is was performed. COMPARISON: US BILAT LOWER DVT on DOS: 11/12/23 FINDINGS: The right and left common femoral, superficial femoral, popliteal, posterior tibial veins and trifur cations appear patent with normal augmentation, compressibility and color-flow. IMPRESSION: 1. There is no sonographic evidence for DVT in the lower extremities. HS:Y
[2024-10-14 16:54] LABS: Body Fluid Polymorphonuclear 54 % (0-25)
[2024-10-14 17:00] VITALS: BP 99/61; PULSE 107; RESP 20; TEMP 98.1; O2SAT 94
[2024-10-14] MEDS: POTASSIUM CHLORIDE 60 MEQ, LIDOCAINE 1% (LOCAL ANESTH.) 6 ML in SODIUM CHL 0.9% 500 ML IV ONE (18:17)
[2024-10-14 19:53] LABS: INR 1.15 (0.9-1.15)
[2024-10-14 20:00] VITALS: PULSE 84; RESP 18
[2024-10-14] MEDS: MELATONIN 5 MG TAB PO ONE (20:09)
[2024-10-14 20:54] VITALS: BP 102/58; PULSE 109; RESP 18; TEMP 98.2; O2SAT 95
--- NOTE | 2024-10-14 22:18 | DVHPN2 ---
Progress Note - Dictate Date Seen: Oct 14, 2024 Medical Necessity Reason Pt with a Central, PICC or Fol: Yes The following are medically ne: Aguayo Catheter Reason for aguayo catheter: Strict I&O Subjective Patient seen and examined at bedside. Currently on room air Overnight events reviewed. vital signs Vital Sign Date Time Temp Pulse Resp B/P (MAP) Pulse Ox O2 Delivery O2 Flow Rate FiO2 10/14/24 20:54 98.2 109 18 102/58 (73) 95 98.2 10/14/24 14:52 Room Air* 0 21 Total Intake and Output 10/13/24 10/13/24 10/14/24 15:00 23:00 07:00 Intake Total 88 ml 452 ml 632 ml Output Total 1150 ml 5700 ml 7325 ml Balance -1062 ml -5248 ml -6693 ml medications Current Medications Medications Dose Ordered Sig/Mikey Route Start Time Stop Time Status Last Admin Dose Admin Enoxaparin Sodium 180 mg Q12HR SC 10/11/24 22:00 UNV Ferrous Sulfate 325 mg DAILY PO 10/12/24 10:00 10/14/24 11:22 325 MG Sodium Chloride 10 ml Q8HR IV 10/11/24 22:00 10/14/24 14:00 10 ML Docusate Sodium 100 mg BIDPRN PRN PO 10/11/24 20:45 Acetaminophen 650 mg Q6HP PRN PO 10/11/24 20:45 Acetaminophen/ Hydrocodone Bitart 1 tab Q4HP PRN PO 10/11/24 20:45 10/14/24 20:10 1 TAB Ondansetron HCl 4 mg Q4HP PRN IV 10/11/24 20:45 Atorvastatin Calcium 40 mg HS PO 10/11/24 22:00 10/14/24 20:10 40 MG Pantoprazole Sodium 40 mg DAILY@0600 PO 10/13/24 06:00 10/14/24 06:07 40 MG Metolazone 5 mg DAILY PO 10/13/24 10:00 10/14/24 11:37 5 MG Furosemide 100 mg/ Sodium Chloride 110 ml @ 11 mls/hr Q10H IV 10/12/24 12:30 10/14/24 15:12 11 MLS/HR Piperacillin Sod/ Tazobactam Sod 100 ml @ 25 mls/hr Q8H IV 10/12/24 15:00 10/14/24 15:12 25 MLS/HR Sodium Chloride 10 ml QSHIFT@10,22 IV 10/12/24 22:00 10/14/24 10:00 10 ML Potassium Chloride 20 meq DAILY PO 10/14/24 10:00 10/14/24 11:22 20 MEQ Magnesium Oxide 400 mg DAILY PO 10/13/24 10:15 10/14/24 11:22 400 MG Metoprolol Tartrate 12.5 mg BID PO 10/13/24 22:00 Heparin Sodium/ Dextrose 250 ml @ 14 mls/hr [id number] IV 10/14/24 12:30 10/14/24 18:57 12 MLS/HR objective Gen.: Patient lying in bed in no apparent distress. On room air. Head: Normocephalic, atraumatic. Eyes: EOMI/PERRLA. Ears: Normal hearing. Normal anatomy. Neck/trachea: Trachea midline, supple. Nose: Normal external anatomy. Mouth: Moist mucous membranes. Chest: Decreased air entry bilaterally. No wheezing or rhonchi. Cardiovascular: Positive S1, positive S2. Regular rate and rhythm. Abdomen: Positive bowel sounds in all 4 quadrants. Soft, non-tender, non- distended. : Deferred. Rectal: Deferred. Skin: Warm, dry. Intact. Extremities: 2+ radial pulses bilaterally. No lower extremity edema. Neuro: Awake, alert, oriented x3. No gross motor or sensory deficits. Cranial nerves II through XII intact. Gait not assessed. laboratory and microbiology Laboratory Tests 10/14/24 14:00 10/14/24 04:02 Test 10/14/24 04:02 Range/Units Serum Glucose 104 74-106 mg/dL Assessment/Plan Impression: Acute hypoxic respiratory failure Pleural effusion Septic shock Atelectasis Pulmonary edema CHF exacerbation Morbid obesity BMI 51.8 Atrial fibrillation Hx of nicotine dependence Events: On room air. Supplemental oxygen PRN Ultrasound venous Doppler of BLE reveals no e/o DVT. S/p right thoracentesis with 1 liter fluid drained from right pleural space. CXR post procedure demonstrates interval decrease in right pleural effusion. On heparin drip. Off pressors, hemodynamically stable. Continue antibiotics for UTI. Blood cultures show group C Streptococcus. Incentive spirometry Iron supplementation Protonix for GI prophylaxis IV fluid hydration Diurese to euvolemia w/ Lasix drip + metolazone Monitor renal function. Monitor electrolytes. Supplement as necessary. Supplement potassium. Monitor ins and outs Labs and imaging reviewed. Rest of plan as noted below. Plan: Supplemental oxygen PRN Titrate to keep O2 sats above 92%. Pressors if necessary for hemodynamic support Titrate to keep mean arterial pressure greater than 65 mmHg Continue antibiotics Incentive spirometry Diurese to euvolemia Monitor renal function. Monitor electrolytes. Supplement as necessary. Monitor ins and outs. Diet and lifestyle modifications for weight reduction Morbid obesity - complicates all care DVT prophylaxis. Prognosis: Poor given patient's multiple co-morbidities. Rest of plan per hospitalist and other consultants. Thank you Dr. Celis for allowing me to participate in this patient's care. Further recommendations will depend on the patient's clinical course. Please do not hesitate to contact me if you have any questions or concerns. This medical document was created using an electronic medical record system with [employer] dictation system. Although these documentations are being carefully reviewed, there may still be some phonetic and typographical changes. The errors are purely typographical, due to imperfection on the software program, and do not reflect any compromise in the patient's medical care. Plan discussed with: Patient, Other (RN) SHIRAZ OSHEA MD Oct 14, 2024 22:18
[2024-10-15] VITALS (8 sets, daily range): BP systolic 97–111; BP diastolic 54–64; PULSE 87–128; RESP 17–19; TEMP 97.7–98.4; O2SAT 93–97
[2024-10-15 02:41] LABS: Basophils # (auto) 0 10 ^3/uL (0-0.2); Eosinophils # (auto) 0.2 10 ^3/uL (0-0.8); Hematocrit 32.8 % (41.0-53.0); Hemoglobin 10.8 g/dL (13.5-17.5); Lymphocytes # (auto) 0.3 10 ^3/uL (0.4-5.4); Monocytes # (auto) 0.9 10 ^3/uL (0-1.3); Neutrophils # (auto) 4.6 10 ^3/uL (1.6-8.6)
[2024-10-15 02:43] LABS: Basophils % (auto) 0.4 % (0.0-2.0); Eosinophils % (auto) 3.1 % (0.0-7.0); Lymphocytes % (auto) 5.3 % (10.0-50.0); Mean Corpuscular Hemoglobin 27.1 pg (28.0-32.0); Mean Corpuscular Hgb Conc. 33.1 g/dL (32.0-36.0); Mean Corpuscular Volume 81.9 fL (80.0-100.0); Monocytes % (auto) 14.7 % (0.0-12.0); Neutrophils % (auto) 76.5 % (37.0-80.0); Nucleated Red Blood Cells % 0.1 %; Platelet Count (auto) 312 10^3/uL (140-450); Red Cell Distribution Width 16.4 % (11.8-14.3)
[2024-10-15 02:55] LABS: Alanine Aminotransferase 36 U/L (7-40); Alkaline Phosphatase 99 U/L (46-116); Anion Gap 6 (5-15); BUN/Creatinine Ratio 17.4 (10.0-20.0); Blood Urea Nitrogen 15 mg/dL (9-23); Glucose 99 mg/dL (74-106); Magnesium 1.7 mg/dL (1.6-2.6); Sodium 139 mmol/L (136-145)
[2024-10-15 02:56] LABS: Bilirubin, Total 0.4 mg/dL (0.2-1.0)
[2024-10-15 03:02] LABS: Albumin 2.7 g/dL (3.2-4.8); Aspartate Aminotransferase 57 U/L (13-40); Calcium 8.6 mg/dL (8.7-10.4); Carbon Dioxide 39 mmol/L (20-31); Chloride 94 mmol/L (98-107); Total Protein 5.5 g/dL (5.7-8.2)
[2024-10-15 08:59] LABS: INR 1.19 (0.9-1.15); Prothrombin Time 12.4 sec (9.3-11.8)
[2024-10-15 09:01] LABS: Partial Thromboplastin Time 71.9 SEC (24.5-34.5)
--- NOTE | 2024-10-15 09:32 | DVHPN2 ---
Consult Progress Note Date Seen: Oct 15, 2024 Subjective Review of Systems: CVS:Normal, RESPIRATORY:Normal, NEURO:Normal Objective vital signs Vital Sign Date Time Temp Pulse Resp B/P (MAP) Pulse Ox O2 Delivery O2 Flow Rate FiO2 10/15/24 08:23 97.9 87 18 99/64 (76) 94 97.9 10/14/24 20:00 Room Air* 0 21 Total Intake and Output 10/14/24 10/14/24 10/15/24 15:00 23:00 07:00 Intake Total 692 ml 250 ml Output Total 4700 ml 2150 ml 3175 ml Balance -4700 ml -1458 ml -2925 ml medications Current Medications Medications Dose Ordered Sig/Mikey Route Start Time Stop Time Status Last Admin Dose Admin Enoxaparin Sodium 180 mg Q12HR SC 10/11/24 22:00 UNV Ferrous Sulfate 325 mg DAILY PO 10/12/24 10:00 10/14/24 11:22 325 MG Sodium Chloride 10 ml Q8HR IV 10/11/24 22:00 10/14/24 14:00 10 ML Docusate Sodium 100 mg BIDPRN PRN PO 10/11/24 20:45 Acetaminophen 650 mg Q6HP PRN PO 10/11/24 20:45 Acetaminophen/ Hydrocodone Bitart 1 tab Q4HP PRN PO 10/11/24 20:45 10/14/24 20:10 1 TAB Ondansetron HCl 4 mg Q4HP PRN IV 10/11/24 20:45 Atorvastatin Calcium 40 mg HS PO 10/11/24 22:00 10/14/24 20:10 40 MG Pantoprazole Sodium 40 mg DAILY@0600 PO 10/13/24 06:00 10/15/24 06:12 40 MG Metolazone 5 mg DAILY PO 10/13/24 10:00 10/14/24 11:37 5 MG Furosemide 100 mg/ Sodium Chloride 110 ml @ 11 mls/hr Q10H IV 10/12/24 12:30 10/15/24 01:18 11 MLS/HR Piperacillin Sod/ Tazobactam Sod 100 ml @ 25 mls/hr Q8H IV 10/12/24 15:00 10/15/24 06:13 25 MLS/HR Sodium Chloride 10 ml QSHIFT@10,22 IV 10/12/24 22:00 10/14/24 10:00 10 ML Potassium Chloride 20 meq DAILY PO 10/14/24 10:00 10/14/24 11:22 20 MEQ Magnesium Oxide 400 mg DAILY PO 10/13/24 10:15 10/14/24 11:22 400 MG Metoprolol Tartrate 12.5 mg BID PO 10/13/24 22:00 Heparin Sodium/ Dextrose 250 ml @ 14 mls/hr [id number] IV 10/14/24 12:30 10/14/24 18:57 12 MLS/HR Examination: LUNGS:Normal, CVS:Abnormal (BLE edema +++), MSK:Abnormal (RLE erythema, hot to touch), :Abnormal (Scrotal edema) laboratory and microbiology Laboratory Tests 10/15/24 02:25 Test 10/15/24 02:25 Range/Units Serum Glucose 99 74-106 mg/dL Problem List/Assessment/Plan Problem List/Assessment/Plan Septic shock, ?lower extremity cellulitis Acute on chronic decompensated HFpEF, NYHA class IV Persistent atrial fibrillation, Stage 3B, (on Pradaxa) Right pleural effusion status post R thoracentesis ? Lower GI bleed, +FOBT Liver cirrhosis Chronic venous stasis History of alcohol/tobacco abuse Morbid obesity Plan/Recommendation (Dr. Ramírez) * Echocardiogram revealed LVEF 55% * Preload reduction, continue Lasix drip * Strict I&Os, daily weights, maintain fluid restriction * Anticoagulation, transition to therapeutic Lovenox * [id number] VASc Score: 2 points. HAS-BLED Score: 2 points * Monitor H&H closely. Transition to Pradaxa upon discharge * Rate control, metoprolol therapy. Uptitrate as tolerated * No antiarrhythmic therapy. Persistent atrial fibrillation * Replete electrolytes as necessary, K>4 and Mg>2 Previously seen in Cardiology [address] with missed appointment on 03/19/2024. Re-scheduled for follow-up on 11/14/2024 at 1515. Thank you for allowing us to care for this patient. Please call with any questions or concerns. This medical document was created using an electronic medical record system with voice recognition software and computerized dictation system. Although this document has been carefully reviewed, there might still be some phonetic and typographical errors. Occasional wrong-word or ``sound-alike substitutions may have occurred due to the inherent limitations of voice recognition software. These areas are purely typographical due to imperfections of the software programs and do not reflect any compromise in the patient's medical care. Please read the chart carefully and recognize, using context, where these substitutions have occurred. Plan discussed with: Patient, Other Date of Service: Oct 15, 2024 Billing Provider: MELISSA SALAS Cardiology Common Codes: [id number] HOSP CARE(High MELISSA SALAS Oct 15, 2024 09:32
[2024-10-15] MEDS: MAGNESIUM SULFATE 1GM/100ML 100 ML IV ONE ×2 (10:07→19:50)
[2024-10-15] MEDS: ENOXAPARIN SOD 150 MG/1 ML SYRINGE SC SCH (10:08)
[2024-10-15] MEDS: POTASSIUM CHL 20 Meq TABLET PO ONE ×3 (10:10→19:49)
--- NOTE | 2024-10-15 13:31 | ECG ---
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
[2024-10-15] MEDS: FUROSEMIDE INJECTION 100 MG in SODIUM CHL 0.9% 100 ML IV SCH (15:14)
--- NOTE | 2024-10-15 15:39 | DVHPN2 ---
Subjective Patient reports having shortness of breath, generalized swelling. Reviewed: Care Plan, H&P, Labs, Medications Changes from previous H/P or p: No Changes General: Per HPI, Chills Objective Vitals Vital Signs Date Time Temp Pulse Resp B/P (MAP) Pulse Ox O2 Delivery O2 Flow Rate FiO2 10/15/24 15:14 100/55 10/15/24 12:39 97.7 100 18 93 97.7 10/14/24 20:00 Room Air* 0 21 Intake/Output Intake and Output 10/15/24 07:00 Intake Total 942 ml Output Total 65429 ml Balance -9083 ml Intake Oral 570 ml IV Total 372 ml Output Urine Total 9025 ml Other 1000 ml General Appearance: Alert, Oriented X3, Cooperative, No acute distress HEENT: Atraumatic, PERRLA Cardiovascular: Normal S1, Normal S2 Abdomen: Normal bowel sounds, Soft, No tenderness, No hepatospenomegaly, Other (Anasarca) Musculoskeletal: Normal sensory function, Normal motor function Neuro: Normal gait, Normal speech Skin: Dry, Intact Psych/Mental Status: Mental status NL, Mood NL Medications Current Medications Medications Dose Ordered Sig/Mikey Route Start Time Stop Time Status Last Admin Dose Admin Enoxaparin Sodium 180 mg Q12HR SC 10/11/24 22:00 UNV Ferrous Sulfate 325 mg DAILY PO 10/12/24 10:00 10/15/24 10:08 325 MG Sodium Chloride 10 ml Q8HR IV 10/11/24 22:00 10/14/24 14:00 10 ML Docusate Sodium 100 mg BIDPRN PRN PO 10/11/24 20:45 Acetaminophen 650 mg Q6HP PRN PO 10/11/24 20:45 Acetaminophen/ Hydrocodone Bitart 1 tab Q4HP PRN PO 10/11/24 20:45 10/15/24 11:44 1 TAB Ondansetron HCl 4 mg Q4HP PRN IV 10/11/24 20:45 Atorvastatin Calcium 40 mg HS PO 10/11/24 22:00 10/14/24 20:10 40 MG Pantoprazole Sodium 40 mg DAILY@0600 PO 10/13/24 06:00 10/15/24 06:12 40 MG Metolazone 5 mg DAILY PO 10/13/24 10:00 10/15/24 10:09 5 MG Piperacillin Sod/ Tazobactam Sod 100 ml @ 25 mls/hr Q8H IV 10/12/24 15:00 10/15/24 06:13 25 MLS/HR Sodium Chloride 10 ml QSHIFT@10,22 IV 10/12/24 22:00 10/15/24 10:08 10 ML Magnesium Oxide 400 mg DAILY PO 10/13/24 10:15 10/15/24 10:08 400 MG Metoprolol Tartrate 12.5 mg BID PO 10/13/24 22:00 Enoxaparin Sodium 150 mg Q12HR SC 10/15/24 10:00 10/15/24 10:08 150 MG Furosemide 100 mg/ Sodium Chloride 110 ml @ 5.5 mls/hr Q20H IV 10/15/24 13:45 10/15/24 15:14 5.5 MLS/HR Potassium Bicarbonate 50 meq DAILY PO 10/16/24 10:00 Laboratory Results Laboratory Tests 10/15/24 02:25 Chemistry Test 10/15/24 02:25 Albumin 2.7 g/dL (3.2-4.8) L Calcium Level 8.6 mg/dL (8.7-10.4) L Magnesium Level 1.7 mg/dL (1.6-2.6) Total Protein 5.5 g/dL (5.7-8.2) L Coagulation Test 10/14/24 19:04 10/15/24 02:25 10/15/24 08:29 Prothrombin Time 12.0 sec (9.3-11.8) H 12.4 sec (9.3-11.8) H Prothrombin Time INR 1.15 (0.9-1.15) 1.19 (0.9-1.15) H Activated Partial Thromboplast Time 40.0 SEC (24.5-34.5) H 61.1 SEC (24.5-34.5) H 71.9 SEC (24.5-34.5) *H LFT Test 10/15/24 02:25 Alanine Aminotransferase (ALT) 36 U/L (7-40) Alkaline Phosphatase 99 U/L (46-116) Aspartate Amino Transferase (AST) 57 U/L (13-40) H Total Bilirubin 0.4 mg/dL (0.2-1.0) Urinalysis Test 10/11/24 13:34 Urine Color Dark-yellow (Yellow) Urine Clarity Ex.turbid (Clear) Urine pH 5.5 (5.0-9.0) Urine Specific [place] 1.022 (1.001-1.035) Urine Protein 2+ (Negative) H Urine Ketones Negative (Negative) Urine Blood Negative /uL (Negative) Urine Nitrite Negative (Negative) Urine Bilirubin Negative (Negative) Urine Urobilinogen 2 mg/dL (Negative) H Urine Leukocyte Esterase Negative /uL (Negative) Urine RBC <1 /hpf (0 - 3) Urine Microscopic WBC 1 /HPF (0-3) Urine Squamous Epithelial Cells Few /hpf (<5) Urine Bacteria None seen /hpf (None Seen) Urine Glucose Normal mg/dL (Normal) Microbiology Microbiology Date/Time Source Procedure Growth Status 10/14/24 10:50 Pleural Fluid Gram Stain - Final Resulted 10/14/24 10:50 Pleural Fluid Body Fluid Culture - Preliminary Resulted 10/13/24 11:15 Blood Blood Culture - Preliminary NO GROWTH AFTER 48 HOURS OF INCUBATION. Resulted 10/11/24 13:34 Voided Urine Urine Culture - Final Complete Labs and/or images reviewed: Labs reviewed by me, Image(s) reviewed by me Assessment/Plan Assessment/Plan Impression: -shock, questionable sepsis etiology -blood culture positive with beta-hemolytic strep. Questionable contamination. -probable hEFpEF -morbid obesity -right pleural effusion -atrial fibrillation -rule out sepsis -rule out GI bleed Plan: Events: No events overnight. Testicular ultrasound unremarkable. Patient had thoracentesis with 1 L removed. -patient change to heparin drip from Eliquis -K and Mag replacement -Continue Lasix drip and metolazone -fluid restriction -continue Zosyn -repeat blood cultures : Pending -repeat BNP in a.m. Critical care time spent with patient discussing and formulating plan of care: 40 minutes. This does not include time spent performing procedures. This medical document was created using an electronic medical record system with [employer] system. Although this document has been carefully reviewed, there may still be some phonetic and typographical errors. These areas are purely typographical due to imperfections of the software programs, and do not reflect any compromise in the patient's medical care. Plan discussed with: Patient, Other (RN) My Orders Orders - SALBINO,KEENE DEPUTY CHIEF COUNSEL Procedure Category Date Status Time Sodium Chl 0.9% PHA 10/15/24 In Process (So... W/Furosemide 13:45 Potassium Effervesent PHA 10/16/24 In Process Tab (Klor-Con/Ef) 10:00 Date of Service: Oct 15, 2024 Billing Provider: JASSI PEREYRA NP Common Visit Codes: [id number] INP/OBS CARE(HIGH) JASSI PEREYRA NP Oct 15, 2024 15:39
[2024-10-15 16:21] LABS: Magnesium 1.8 mg/dL (1.6-2.6)
[2024-10-15 16:27] LABS: Potassium 3.4 mmol/L (3.5-5.1)
--- NOTE | 2024-10-15 18:04 | DVHSR ---
APPROVED REPORT EXAM: LIMITED Two-dimensional and M-mode echocardiogram. Blood Pressure: 118/71 mmHg INDICATION Assess LVEF RISK FACTORS Height: 6'1", Weight: 392 DIMENSIONS LVDd5.5 (3.8-5.7cm)LA (2D) (1.9-4.0cm)Aortic Root (2.0-3.7cm) LVDs3.8 (2.5-4.0cm)LA (MM) (1.9-4.0cm)Aortic Cusp Exc (1.5-2.0cm) EF (%) 59.0 (55-70%)Rt. Atrium (1.9-4.0cm)Asc. Aorta cm Mitral Valve MitralMitral Stenosis E/A ratio0.02D MVAcm2 LEFT VENTRICLE Patient HR was 88 bpm at start of Echocardiogram but quickly elevated between 96-130. Images were acq uired as close to under 100 bpm as possible due to pt A-fib. Other Information Quality : Technically LimitedRhythm : Technically limited study due to body habitus and pt position. Conclusion Technically limited study. Difficult acoustic windows. Limited views obtained. Atrial fibrillation underlying. There appears to be biatrial enlargement. The ventricles appeared to be within normal limits in size . The valves appear to be structurally normal. The mitral and aortic valves are normal. Left ventricular function is preserved at 50% with normal RV function. Dopplers was not obtained. No pericardial effusion masses or vegetations.
--- NOTE | 2024-10-15 22:30 | DVHPN2 ---
Progress Note - Dictate Date Seen: Oct 15, 2024 Medical Necessity Reason Pt with a Central, PICC or Fol: Yes The following are medically ne: Aguayo Catheter Reason for aguayo catheter: Strict I&O Subjective Patient seen and examined at bedside. Remains on room air Overnight events reviewed. vital signs Vital Sign Date Time Temp Pulse Resp B/P (MAP) Pulse Ox O2 Delivery O2 Flow Rate FiO2 10/15/24 22:00 104 98/56 10/15/24 21:00 98.4 18 97 98.4 10/15/24 07:30 Room Air* 0 21 Total Intake and Output 10/14/24 10/14/24 10/15/24 15:00 23:00 07:00 Intake Total 692 ml 250 ml Output Total 4700 ml 2150 ml 3175 ml Balance -4700 ml -1458 ml -2925 ml medications Current Medications Medications Dose Ordered Sig/Mikey Route Start Time Stop Time Status Last Admin Dose Admin Enoxaparin Sodium 180 mg Q12HR SC 10/11/24 22:00 UNV Ferrous Sulfate 325 mg DAILY PO 10/12/24 10:00 10/15/24 10:08 325 MG Sodium Chloride 10 ml Q8HR IV 10/11/24 22:00 10/15/24 22:17 10 ML Docusate Sodium 100 mg BIDPRN PRN PO 10/11/24 20:45 Acetaminophen 650 mg Q6HP PRN PO 10/11/24 20:45 Acetaminophen/ Hydrocodone Bitart 1 tab Q4HP PRN PO 10/11/24 20:45 10/15/24 20:30 1 TAB Ondansetron HCl 4 mg Q4HP PRN IV 10/11/24 20:45 Atorvastatin Calcium 40 mg HS PO 10/11/24 22:00 10/15/24 22:20 40 MG Pantoprazole Sodium 40 mg DAILY@0600 PO 10/13/24 06:00 10/15/24 06:12 40 MG Metolazone 5 mg DAILY PO 10/13/24 10:00 10/15/24 10:09 5 MG Piperacillin Sod/ Tazobactam Sod 100 ml @ 25 mls/hr Q8H IV 10/12/24 15:00 10/15/24 16:24 25 MLS/HR Sodium Chloride 10 ml QSHIFT@10,22 IV 10/12/24 22:00 10/15/24 22:17 10 ML Magnesium Oxide 400 mg DAILY PO 10/13/24 10:15 10/15/24 10:08 400 MG Metoprolol Tartrate 12.5 mg BID PO 10/13/24 22:00 Enoxaparin Sodium 150 mg Q12HR SC 10/15/24 10:00 10/15/24 22:19 150 MG Furosemide 100 mg/ Sodium Chloride 110 ml @ 5.5 mls/hr Q20H IV 10/15/24 13:45 10/15/24 15:14 5.5 MLS/HR Potassium Bicarbonate 50 meq DAILY PO 10/16/24 10:00 objective Gen.: Patient lying in bed in no apparent distress. On room air. Head: Normocephalic, atraumatic. Eyes: EOMI/PERRLA. Ears: Normal hearing. Normal anatomy. Neck/trachea: Trachea midline, supple. Nose: Normal external anatomy. Mouth: Moist mucous membranes. Chest: Decreased air entry bilaterally. No wheezing or rhonchi. Cardiovascular: Positive S1, positive S2. Regular rate and rhythm. Abdomen: Positive bowel sounds in all 4 quadrants. Soft, non-tender, non- distended. : Deferred. Rectal: Deferred. Skin: Warm, dry. Intact. Extremities: 2+ radial pulses bilaterally. No lower extremity edema. Neuro: Awake, alert, oriented x3. No gross motor or sensory deficits. Cranial nerves II through XII intact. Gait not assessed. laboratory and microbiology Laboratory Tests 10/15/24 15:49 10/15/24 02:25 Test 10/15/24 02:25 Range/Units Serum Glucose 99 74-106 mg/dL Assessment/Plan Impression: Acute hypoxic respiratory failure Pleural effusion Septic shock Atelectasis Pulmonary edema CHF exacerbation Morbid obesity BMI 51.8 Atrial fibrillation Hx of nicotine dependence Events: On room air. Supplemental oxygen PRN S/p right thoracentesis on 10/14/24 with 1 liter fluid drained from right pleural space. CXR post procedure demonstrated interval decrease in right pleural effusion. Ultrasound venous Doppler of BLE revealed no e/o DVT. Off heparin drip. Off pressors, hemodynamically stable. Continue antibiotics for UTI. Blood cultures show group C Streptococcus. Incentive spirometry Iron supplementation Protonix for GI prophylaxis IV fluid hydration Diurese to euvolemia w/ Lasix Monitor renal function. Monitor electrolytes. Supplement as necessary. Supplement potassium, magnesium. Monitor ins and outs Labs and imaging reviewed. Rest of plan as noted below. Plan: Supplemental oxygen PRN Titrate to keep O2 sats above 92%. Pressors if necessary for hemodynamic support Titrate to keep mean arterial pressure greater than 65 mmHg Continue antibiotics Incentive spirometry Diurese to euvolemia Monitor renal function. Monitor electrolytes. Supplement as necessary. Monitor ins and outs. Diet and lifestyle modifications for weight reduction Morbid obesity - complicates all care DVT prophylaxis. Prognosis: Guarded given patient's multiple co-morbidities. Rest of plan per hospitalist and other consultants. Thank you Dr. Celis for allowing me to participate in this patient's care. Further recommendations will depend on the patient's clinical course. Please do not hesitate to contact me if you have any questions or concerns. This medical document was created using an electronic medical record system with [employer] dictation system. Although these documentations are being carefully reviewed, there may still be some phonetic and typographical changes. The errors are purely typographical, due to imperfection on the software program, and do not reflect any compromise in the patient's medical care. Dietary Evaluation Review Comments: Low Na cardiac diet, Attending a wt reduction program will be very beneficial. Expected Outcomes/Goals: gradual wt loss Plan discussed with: Patient, Other (JOSE RAUL Cadet) SHIRAZ OSHEA MD Oct 15, 2024 22:30
[2024-10-16] VITALS (9 sets, daily range): BP systolic 96–112; BP diastolic 52–61; PULSE 97–127; RESP 18–20; TEMP 97.8–98.6; O2SAT 90–98
[2024-10-16 07:40] LABS: Alanine Aminotransferase 34 U/L (7-40); Alkaline Phosphatase 106 U/L (46-116); Anion Gap 7 (5-15); Aspartate Aminotransferase 39 U/L (13-40); BUN/Creatinine Ratio 11.9 (10.0-20.0); Blood Urea Nitrogen 12 mg/dL (9-23); Calcium 9.3 mg/dL (8.7-10.4); Glucose 98 mg/dL (74-106); Sodium 137 mmol/L (136-145)
[2024-10-16 07:41] LABS: Bilirubin, Total 0.6 mg/dL (0.2-1.0); Total Protein 5.9 g/dL (5.7-8.2)
[2024-10-16 07:52] LABS: Carbon Dioxide 39 mmol/L (20-31); Chloride 91 mmol/L (98-107); Potassium 3.3 mmol/L (3.5-5.1)
[2024-10-16] MEDS: POTASSIUM EFFERVESENT TAB 25 MEQ PO SCH (09:43)
[2024-10-16 10:45] LABS: Basophils # (auto) 0 10 ^3/uL (0-0.2); Basophils % (auto) 0.7 % (0.0-2.0); Eosinophils # (auto) 0.3 10 ^3/uL (0-0.8); Eosinophils % (auto) 4.3 % (0.0-7.0); Hematocrit 33.7 % (41.0-53.0); Hemoglobin 11.3 g/dL (13.5-17.5); Lymphocytes # (auto) 0.4 10 ^3/uL (0.4-5.4); Mean Corpuscular Hemoglobin 27.3 pg (28.0-32.0); Mean Corpuscular Hgb Conc. 33.7 g/dL (32.0-36.0); Monocytes # (auto) 0.8 10 ^3/uL (0-1.3); Monocytes % (auto) 12.8 % (0.0-12.0); Neutrophils # (auto) 4.6 10 ^3/uL (1.6-8.6); Neutrophils % (auto) 76.2 % (37.0-80.0); Nucleated Red Blood Cells % 0.4 %; Platelet Count (auto) 331 10^3/uL (140-450); Red Blood Cells 4.15 10^6/uL (4.5-5.90); Red Cell Distribution Width 16.2 % (11.8-14.3); White Blood Cell 6.1 10^3/uL (4.4-10.8)
[2024-10-16 13:06] LABS: Protein, Body Fluid 0.5 g/dL (.)
--- NOTE | 2024-10-16 13:47 | DVHPN2 ---
Consult Progress Note Date Seen: Oct 16, 2024 Objective vital signs Vital Sign Date Time Temp Pulse Resp B/P (MAP) Pulse Ox O2 Delivery O2 Flow Rate FiO2 10/16/24 11:37 98.4 97 19 96/52 (67) 94 98.4 10/15/24 20:00 Room Air* 0 21 Total Intake and Output 10/15/24 10/15/24 10/16/24 15:00 23:00 07:00 Intake Total 245 ml 910 ml 388 ml Output Total 5950 ml 500 ml Balance 245 ml -5040 ml -112 ml medications Current Medications Medications Dose Ordered Sig/Mikey Route Start Time Stop Time Status Last Admin Dose Admin Enoxaparin Sodium 180 mg Q12HR SC 10/11/24 22:00 UNV Ferrous Sulfate 325 mg DAILY PO 10/12/24 10:00 10/16/24 09:44 325 MG Sodium Chloride 10 ml Q8HR IV 10/11/24 22:00 10/16/24 06:36 10 ML Docusate Sodium 100 mg BIDPRN PRN PO 10/11/24 20:45 Acetaminophen 650 mg Q6HP PRN PO 10/11/24 20:45 Acetaminophen/ Hydrocodone Bitart 1 tab Q4HP PRN PO 10/11/24 20:45 10/16/24 04:47 1 TAB Ondansetron HCl 4 mg Q4HP PRN IV 10/11/24 20:45 Atorvastatin Calcium 40 mg HS PO 10/11/24 22:00 10/15/24 22:20 40 MG Pantoprazole Sodium 40 mg DAILY@0600 PO 10/13/24 06:00 10/16/24 06:35 40 MG Metolazone 5 mg DAILY PO 10/13/24 10:00 10/16/24 09:46 5 MG Piperacillin Sod/ Tazobactam Sod 100 ml @ 25 mls/hr Q8H IV 10/12/24 15:00 10/16/24 06:36 25 MLS/HR Sodium Chloride 10 ml QSHIFT@10,22 IV 10/12/24 22:00 10/16/24 10:47 10 ML Magnesium Oxide 400 mg DAILY PO 10/13/24 10:15 10/16/24 09:44 400 MG Metoprolol Tartrate 12.5 mg BID PO 10/13/24 22:00 10/16/24 09:46 12.5 MG Enoxaparin Sodium 150 mg Q12HR SC 10/15/24 10:00 10/16/24 09:48 150 MG Furosemide 100 mg/ Sodium Chloride 110 ml @ 5.5 mls/hr Q20H IV 10/15/24 13:45 10/16/24 04:35 5.5 MLS/HR Potassium Bicarbonate 50 meq DAILY PO 10/16/24 10:00 10/16/24 09:43 50 MEQ laboratory and microbiology Laboratory Tests 10/16/24 06:30 Test 10/16/24 06:30 Range/Units Serum Glucose 98 74-106 mg/dL Problem List/Assessment/Plan Problem List/Assessment/Plan Septic shock, ?lower extremity cellulitis Acute on chronic decompensated HFpEF, NYHA class IV Persistent atrial fibrillation, Stage 3B, (on Pradaxa) Right pleural effusion status post R thoracentesis ? Lower GI bleed, +FOBT Liver cirrhosis Chronic venous stasis History of alcohol/tobacco abuse Morbid obesity Plan/Recommendation (Dr. Ramírez) * Echocardiogram revealed LVEF 55% * Preload reduction, continue Lasix drip * Strict I&Os, daily weights, maintain fluid restriction * Anticoagulation, therapeutic Lovenox * [id number] VASc Score: 2 points. HAS-BLED Score: 2 points * Monitor H&H closely. Transition to Pradaxa upon discharge * Rate control, metoprolol therapy. Uptitrate as tolerated * No antiarrhythmic therapy. Persistent atrial fibrillation * Replete electrolytes as necessary, K>4 and Mg>2 Previously seen in Cardiology [address] with missed appointment on 03/19/2024. Re-scheduled for follow-up on 11/14/2024 at 1515. We will sign off at this time. Kindly call if in need to re-consult. Thank you for allowing us to care for this patient. This medical document was created using an electronic medical record system with voice recognition software and computerized dictation system. Although this document has been carefully reviewed, there might still be some phonetic and typographical errors. Occasional wrong-word or ``sound-alike substitutions may have occurred due to the inherent limitations of voice recognition software. These areas are purely typographical due to imperfections of the software programs and do not reflect any compromise in the patient's medical care. Please read the chart carefully and recognize, using context, where these substitutions have occurred. Plan discussed with: Patient, Other Dietary Evaluation Review Comments: Low Na cardiac diet, Attending a wt reduction program will be very beneficial. Expected Outcomes/Goals: gradual wt loss Date of Service: Oct 16, 2024 Billing Provider: MELISSA SALAS Cardiology Common Codes: [id number] INP/OBS CARE(Mod) MELISSA SALAS Oct 16, 2024 13:47
--- NOTE | 2024-10-16 14:31 | DVHPN2 ---
Subjective Patient reports having shortness of breath, generalized swelling. Reviewed: Care Plan, H&P, Labs, Medications Changes from previous H/P or p: No Changes General: Per HPI, Chills Objective Vitals Vital Signs Date Time Temp Pulse Resp B/P (MAP) Pulse Ox O2 Delivery O2 Flow Rate FiO2 10/16/24 11:37 98.4 97 19 96/52 (67) 94 98.4 10/15/24 20:00 Room Air* 0 21 Intake/Output Intake and Output 10/16/24 07:00 Intake Total 1543 ml Output Total 6450 ml Balance -4907 ml Intake Oral 800 ml IV Total 743 ml Output Urine Total 6450 ml General Appearance: Alert, Oriented X3, Cooperative, No acute distress HEENT: Atraumatic, PERRLA Cardiovascular: Normal S1, Normal S2 Abdomen: Normal bowel sounds, Soft, No tenderness, No hepatospenomegaly, Other (Anasarca) Musculoskeletal: Normal sensory function, Normal motor function Neuro: Normal gait, Normal speech Skin: Dry, Intact Psych/Mental Status: Mental status NL, Mood NL Medications Current Medications Medications Dose Ordered Sig/Mikey Route Start Time Stop Time Status Last Admin Dose Admin Enoxaparin Sodium 180 mg Q12HR SC 10/11/24 22:00 UNV Ferrous Sulfate 325 mg DAILY PO 10/12/24 10:00 10/16/24 09:44 325 MG Sodium Chloride 10 ml Q8HR IV 10/11/24 22:00 10/16/24 06:36 10 ML Docusate Sodium 100 mg BIDPRN PRN PO 10/11/24 20:45 Acetaminophen 650 mg Q6HP PRN PO 10/11/24 20:45 Acetaminophen/ Hydrocodone Bitart 1 tab Q4HP PRN PO 10/11/24 20:45 10/16/24 04:47 1 TAB Ondansetron HCl 4 mg Q4HP PRN IV 10/11/24 20:45 Atorvastatin Calcium 40 mg HS PO 10/11/24 22:00 10/15/24 22:20 40 MG Pantoprazole Sodium 40 mg DAILY@0600 PO 10/13/24 06:00 10/16/24 06:35 40 MG Metolazone 5 mg DAILY PO 10/13/24 10:00 10/16/24 09:46 5 MG Piperacillin Sod/ Tazobactam Sod 100 ml @ 25 mls/hr Q8H IV 10/12/24 15:00 10/16/24 06:36 25 MLS/HR Sodium Chloride 10 ml QSHIFT@10,22 IV 10/12/24 22:00 10/16/24 10:47 10 ML Magnesium Oxide 400 mg DAILY PO 10/13/24 10:15 10/16/24 09:44 400 MG Metoprolol Tartrate 12.5 mg BID PO 10/13/24 22:00 10/16/24 09:46 12.5 MG Enoxaparin Sodium 150 mg Q12HR SC 10/15/24 10:00 10/16/24 09:48 150 MG Furosemide 100 mg/ Sodium Chloride 110 ml @ 5.5 mls/hr Q20H IV 10/15/24 13:45 10/16/24 04:35 5.5 MLS/HR Potassium Bicarbonate 50 meq DAILY PO 10/16/24 10:00 10/16/24 09:43 50 MEQ Laboratory Results Laboratory Tests 10/16/24 06:30 Chemistry Test 10/15/24 15:49 10/16/24 06:30 Magnesium Level 1.8 mg/dL (1.6-2.6) 2.0 mg/dL (1.6-2.6) Albumin 3.0 g/dL (3.2-4.8) L Calcium Level 9.3 mg/dL (8.7-10.4) Total Protein 5.9 g/dL (5.7-8.2) LFT Test 10/16/24 06:30 Alanine Aminotransferase (ALT) 34 U/L (7-40) Alkaline Phosphatase 106 U/L (46-116) Aspartate Amino Transferase (AST) 39 U/L (13-40) Total Bilirubin 0.6 mg/dL (0.2-1.0) Urinalysis Test 10/11/24 13:34 Urine Color Dark-yellow (Yellow) Urine Clarity Ex.turbid (Clear) Urine pH 5.5 (5.0-9.0) Urine Specific [place] 1.022 (1.001-1.035) Urine Protein 2+ (Negative) H Urine Ketones Negative (Negative) Urine Blood Negative /uL (Negative) Urine Nitrite Negative (Negative) Urine Bilirubin Negative (Negative) Urine Urobilinogen 2 mg/dL (Negative) H Urine Leukocyte Esterase Negative /uL (Negative) Urine RBC <1 /hpf (0 - 3) Urine Microscopic WBC 1 /HPF (0-3) Urine Squamous Epithelial Cells Few /hpf (<5) Urine Bacteria None seen /hpf (None Seen) Urine Glucose Normal mg/dL (Normal) Microbiology Microbiology Date/Time Source Procedure Growth Status 10/14/24 10:50 Pleural Fluid Gram Stain - Final Resulted 10/14/24 10:50 Pleural Fluid Body Fluid Culture - Preliminary Resulted 10/13/24 11:15 Blood Blood Culture - Preliminary NO GROWTH AFTER 72 HOURS OF INCUBATION. Resulted 10/11/24 13:34 Voided Urine Urine Culture - Final Complete Labs and/or images reviewed: Labs reviewed by me, Image(s) reviewed by me Assessment/Plan Assessment/Plan Impression: -shock, questionable sepsis etiology -blood culture positive with beta-hemolytic strep. Questionable contamination. -probable hEFpEF -morbid obesity -right pleural effusion -atrial fibrillation -rule out sepsis -rule out GI bleed Plan: Events: Events overnight. Patient continues to have adequate diuresis. Repeat blood culture negative for any growth at this time. -patient change to heparin drip from Eliquis -K and Mag replacement -Continue Lasix drip and metolazone -fluid restriction -continue Zosyn -repeat blood cultures : Pending final results -repeat labs in a.m. Critical care time spent with patient discussing and formulating plan of care: 40 minutes. This does not include time spent performing procedures. This medical document was created using an electronic medical record system with [employer] dictation system. Although this document has been carefully reviewed, there may still be some phonetic and typographical errors. These areas are purely typographical due to imperfections of the software programs, and do not reflect any compromise in the patient's medical care. Plan discussed with: Patient, Other (RN) Date of Service: Oct 16, 2024 Billing Provider: JASSI PEREYRA NP Common Visit Codes: [id number] INP/OBS CARE(HIGH) JASSI PEREYRA NP Oct 16, 2024 14:31
[2024-10-16] MEDS: POTASSIUM EFFERVESENT TAB 25 MEQ PO ONE (17:35)
--- NOTE | 2024-10-16 22:06 | DVHPN2 ---
Progress Note - Dictate Date Seen: Oct 16, 2024 Medical Necessity Reason Pt with a Central, PICC or Fol: Yes The following are medically ne: Aguayo Catheter Reason for aguayo catheter: Strict I&O Subjective Patient seen and examined at bedside. Remains on room air Overnight events reviewed. vital signs Vital Sign Date Time Temp Pulse Resp B/P (MAP) Pulse Ox O2 Delivery O2 Flow Rate FiO2 10/16/24 16:00 98.4 104 19 112/60 (77) 91 98.4 10/16/24 07:50 Room Air* 0 21 Total Intake and Output 10/15/24 10/15/24 10/16/24 15:00 23:00 07:00 Intake Total 245 ml 910 ml 388 ml Output Total 5950 ml 500 ml Balance 245 ml -5040 ml -112 ml medications Current Medications Medications Dose Ordered Sig/Mikey Route Start Time Stop Time Status Last Admin Dose Admin Enoxaparin Sodium 180 mg Q12HR SC 10/11/24 22:00 UNV Ferrous Sulfate 325 mg DAILY PO 10/12/24 10:00 10/16/24 09:44 325 MG Sodium Chloride 10 ml Q8HR IV 10/11/24 22:00 10/16/24 16:56 10 ML Docusate Sodium 100 mg BIDPRN PRN PO 10/11/24 20:45 Acetaminophen 650 mg Q6HP PRN PO 10/11/24 20:45 Acetaminophen/ Hydrocodone Bitart 1 tab Q4HP PRN PO 10/11/24 20:45 10/16/24 17:40 1 TAB Ondansetron HCl 4 mg Q4HP PRN IV 10/11/24 20:45 Atorvastatin Calcium 40 mg HS PO 10/11/24 22:00 10/15/24 22:20 40 MG Pantoprazole Sodium 40 mg DAILY@0600 PO 10/13/24 06:00 10/16/24 06:35 40 MG Metolazone 5 mg DAILY PO 10/13/24 10:00 10/16/24 09:46 5 MG Piperacillin Sod/ Tazobactam Sod 100 ml @ 25 mls/hr Q8H IV 10/12/24 15:00 10/16/24 17:34 25 MLS/HR Sodium Chloride 10 ml QSHIFT@10,22 IV 10/12/24 22:00 10/16/24 10:47 10 ML Magnesium Oxide 400 mg DAILY PO 10/13/24 10:15 10/16/24 09:44 400 MG Metoprolol Tartrate 12.5 mg BID PO 10/13/24 22:00 10/16/24 09:46 12.5 MG Enoxaparin Sodium 150 mg Q12HR SC 10/15/24 10:00 10/16/24 09:48 150 MG Furosemide 100 mg/ Sodium Chloride 110 ml @ 5.5 mls/hr Q20H IV 10/15/24 13:45 10/16/24 04:35 5.5 MLS/HR Potassium Bicarbonate 50 meq DAILY PO 10/16/24 10:00 10/16/24 09:43 50 MEQ objective Gen.: Patient lying in bed in no apparent distress. On room air. Head: Normocephalic, atraumatic. Eyes: EOMI/PERRLA. Ears: Normal hearing. Normal anatomy. Neck/trachea: Trachea midline, supple. Nose: Normal external anatomy. Mouth: Moist mucous membranes. Chest: Decreased air entry bilaterally. No wheezing or rhonchi. Cardiovascular: Positive S1, positive S2. Regular rate and rhythm. Abdomen: Positive bowel sounds in all 4 quadrants. Soft, non-tender, non- distended. : Deferred. Rectal: Deferred. Skin: Warm, dry. Intact. Extremities: 2+ radial pulses bilaterally. No lower extremity edema. Neuro: Awake, alert, oriented x3. No gross motor or sensory deficits. Cranial nerves II through XII intact. Gait not assessed. laboratory and microbiology Laboratory Tests 10/16/24 06:30 Test 10/16/24 06:30 Range/Units Serum Glucose 98 74-106 mg/dL Assessment/Plan Impression: Acute hypoxic respiratory failure Pleural effusion Septic shock Atelectasis Pulmonary edema CHF exacerbation Morbid obesity BMI 51.8 Atrial fibrillation Hx of nicotine dependence Events: On room air. Supplemental oxygen PRN Continue antibiotics for UTI. Blood cultures grew group C Streptococcus. Repeat blood cultures showing no growth Incentive spirometry Iron supplementation Monitor hemoglobin Protonix for GI prophylaxis Diurese to euvolemia w/ Lasix drip + metolazone Monitor renal function. Monitor electrolytes. Supplement as necessary. Supplement potassium; magnesium at goal. Monitor ins and outs Therapeutic Lovenox S/p right thoracentesis on 10/14/24 with 1 liter fluid drained from right pleural space. CXR post procedure demonstrated interval decrease in right pleural effusion. Labs and imaging reviewed. Rest of plan as noted below. Plan: Supplemental oxygen PRN Titrate to keep O2 sats above 92%. Off heparin drip Pressors if necessary for hemodynamic support Titrate to keep mean arterial pressure greater than 65 mmHg Continue antibiotics Incentive spirometry Diurese to euvolemia Monitor renal function. Monitor electrolytes. Supplement as necessary. Monitor ins and outs. Diet and lifestyle modifications for weight reduction Morbid obesity - complicates all care DVT prophylaxis. Prognosis: Guarded given patient's multiple co-morbidities. Rest of plan per hospitalist and other consultants. Thank you Dr. Celis for allowing me to participate in this patient's care. Further recommendations will depend on the patient's clinical course. Please do not hesitate to contact me if you have any questions or concerns. This medical document was created using an electronic medical record system with [employer] dictation system. Although these documentations are being carefully reviewed, there may still be some phonetic and typographical changes. The errors are purely typographical, due to imperfection on the software program, and do not reflect any compromise in the patient's medical care. Dietary Evaluation Review Comments: Low Na cardiac diet, Attending a wt reduction program will be very beneficial. Expected Outcomes/Goals: gradual wt loss Plan discussed with: Patient, Other (RN) SHIRAZ OSHEA MD Oct 16, 2024 22:05
[2024-10-17] VITALS (8 sets, daily range): BP systolic 88–108; BP diastolic 52–59; PULSE 83–115; RESP 15–20; TEMP 97.9–98.3; O2SAT 90–93
[2024-10-17 06:33] LABS: Basophils # (auto) 0.1 10 ^3/uL (0-0.2); Basophils % (auto) 0.7 % (0.0-2.0); Eosinophils # (auto) 0.5 10 ^3/uL (0-0.8); Eosinophils % (auto) 6.8 % (0.0-7.0); Hematocrit 35.3 % (41.0-53.0); Hemoglobin 11.8 g/dL (13.5-17.5); Lymphocytes # (auto) 0.4 10 ^3/uL (0.4-5.4); Lymphocytes % (auto) 5.1 % (10.0-50.0); Mean Corpuscular Hemoglobin 27.1 pg (28.0-32.0); Mean Corpuscular Hgb Conc. 33.4 g/dL (32.0-36.0); Monocytes # (auto) 0.8 10 ^3/uL (0-1.3); Monocytes % (auto) 10.7 % (0.0-12.0); Neutrophils # (auto) 5.7 10 ^3/uL (1.6-8.6); Neutrophils % (auto) 76.7 % (37.0-80.0); Nucleated Red Blood Cells % 0.4 %; Platelet Count (auto) 347 10^3/uL (140-450); Red Blood Cells 4.36 10^6/uL (4.5-5.90); Red Cell Distribution Width 15.9 % (11.8-14.3); White Blood Cell 7.4 10^3/uL (4.4-10.8)
[2024-10-17 06:42] LABS: Anion Gap 8 (5-15)
[2024-10-17 06:44] LABS: Calcium 9.6 mg/dL (8.7-10.4); Carbon Dioxide 38 mmol/L (20-31); Chloride 88 mmol/L (98-107); Potassium 3.2 mmol/L (3.5-5.1); Sodium 134 mmol/L (136-145)
[2024-10-17 06:48] LABS: Glucose 91 mg/dL (74-106)
[2024-10-17 06:49] LABS: BUN/Creatinine Ratio 12.5 (10.0-20.0); Blood Urea Nitrogen 12 mg/dL (9-23); Magnesium 1.9 mg/dL (1.6-2.6)
[2024-10-17] MEDS: POTASSIUM CHL 20MEQ/100ML 100 ML IV SCH (12:09)
--- NOTE | 2024-10-17 13:02 | DVHPN2 ---
Subjective Patient was denies any symptoms at this time. Reviewed: Care Plan, H&P, Labs, Medications Changes from previous H/P or p: Changes General: Per HPI, Chills Objective Vitals Vital Signs Date Time Temp Pulse Resp B/P (MAP) Pulse Ox O2 Delivery O2 Flow Rate FiO2 10/17/24 11:52 98.3 103 15 91/53 (66) 91 98.3 10/17/24 08:05 Room Air* 0 21 Intake/Output Intake and Output 10/17/24 07:00 Intake Total 852 ml Output Total 63082 ml Balance -28404 ml Intake Oral 586 ml IV Total 266 ml Output Urine Total 01530 ml General Appearance: Alert, Oriented X3, Cooperative, No acute distress HEENT: Atraumatic, PERRLA Cardiovascular: Normal S1, Normal S2 Abdomen: Normal bowel sounds, Soft, No tenderness, No hepatospenomegaly, Other (Anasarca) Musculoskeletal: Normal sensory function, Normal motor function Neuro: Normal gait, Normal speech Skin: Dry, Intact Psych/Mental Status: Mental status NL, Mood NL Medications Current Medications Medications Dose Ordered Sig/Mikey Route Start Time Stop Time Status Last Admin Dose Admin Enoxaparin Sodium 180 mg Q12HR SC 10/11/24 22:00 UNV Ferrous Sulfate 325 mg DAILY PO 10/12/24 10:00 10/17/24 10:17 325 MG Sodium Chloride 10 ml Q8HR IV 10/11/24 22:00 10/17/24 06:13 10 ML Docusate Sodium 100 mg BIDPRN PRN PO 10/11/24 20:45 Acetaminophen 650 mg Q6HP PRN PO 10/11/24 20:45 Acetaminophen/ Hydrocodone Bitart 1 tab Q4HP PRN PO 10/11/24 20:45 10/17/24 10:35 1 TAB Ondansetron HCl 4 mg Q4HP PRN IV 10/11/24 20:45 Atorvastatin Calcium 40 mg HS PO 10/11/24 22:00 10/16/24 22:03 40 MG Pantoprazole Sodium 40 mg DAILY@0600 PO 10/13/24 06:00 10/17/24 06:13 40 MG Metolazone 5 mg DAILY PO 10/13/24 10:00 10/16/24 09:46 5 MG Piperacillin Sod/ Tazobactam Sod 100 ml @ 25 mls/hr Q8H IV 10/12/24 15:00 10/17/24 06:14 25 MLS/HR Sodium Chloride 10 ml QSHIFT@10,22 IV 10/12/24 22:00 10/17/24 10:18 10 ML Magnesium Oxide 400 mg DAILY PO 10/13/24 10:15 10/17/24 10:17 400 MG Metoprolol Tartrate 12.5 mg BID PO 10/13/24 22:00 10/16/24 22:05 12.5 MG Furosemide 100 mg/ Sodium Chloride 110 ml @ 5.5 mls/hr Q20H IV 10/15/24 13:45 10/17/24 01:28 5.5 MLS/HR Potassium Bicarbonate 50 meq DAILY PO 10/16/24 10:00 10/17/24 10:18 50 MEQ Potassium Chloride 100 ml @ 50 mls/hr Q2H IV 10/17/24 10:30 10/17/24 16:29 10/17/24 12:09 50 MLS/HR Apixaban 5 mg BID PO 10/17/24 22:00 UNV Laboratory Results Laboratory Tests 10/17/24 05:14 Chemistry Test 10/17/24 05:14 Calcium Level 9.6 mg/dL (8.7-10.4) Magnesium Level 1.9 mg/dL (1.6-2.6) Urinalysis Test 10/11/24 13:34 Urine Color Dark-yellow (Yellow) Urine Clarity Ex.turbid (Clear) Urine pH 5.5 (5.0-9.0) Urine Specific [place] 1.022 (1.001-1.035) Urine Protein 2+ (Negative) H Urine Ketones Negative (Negative) Urine Blood Negative /uL (Negative) Urine Nitrite Negative (Negative) Urine Bilirubin Negative (Negative) Urine Urobilinogen 2 mg/dL (Negative) H Urine Leukocyte Esterase Negative /uL (Negative) Urine RBC <1 /hpf (0 - 3) Urine Microscopic WBC 1 /HPF (0-3) Urine Squamous Epithelial Cells Few /hpf (<5) Urine Bacteria None seen /hpf (None Seen) Urine Glucose Normal mg/dL (Normal) Microbiology Microbiology Date/Time Source Procedure Growth Status 10/14/24 10:50 Pleural Fluid Gram Stain - Final Resulted 10/14/24 10:50 Pleural Fluid Body Fluid Culture - Preliminary Resulted 10/13/24 11:15 Blood Blood Culture - Preliminary NO GROWTH AFTER 72 HOURS OF INCUBATION. Resulted 10/11/24 13:34 Voided Urine Urine Culture - Final Complete Labs and/or images reviewed: Labs reviewed by me, Image(s) reviewed by me Assessment/Plan Assessment/Plan Impression: -shock, questionable sepsis etiology -blood culture positive with beta-hemolytic strep. Questionable contamination. -probable hEFpEF -morbid obesity -right pleural effusion -atrial fibrillation -rule out sepsis -rule out GI bleed Plan: Events: Patient continues to have adequate diuresis on Lasix drip. Continues to have hypokalemia. Increase potassium placement. BM -no signs of bleeding. Change Lovenox to Eliquis -K and Mag replacement -Continue Lasix drip and metolazone -fluid restriction -continue Zosyn -repeat blood cultures : Pending final results -repeat labs in a.m. Critical care time spent with patient discussing and formulating plan of care: 40 minutes. This does not include time spent performing procedures. This medical document was created using an electronic medical record system with [employer] dictation system. Although this document has been carefully reviewed, there may still be some phonetic and typographical errors. These areas are purely typographical due to imperfections of the software programs, and do not reflect any compromise in the patient's medical care. Plan discussed with: Patient, Other (RN) My Orders Orders - JASSI PEREYRA NP Procedure Category Date Status Time Potassium Chl PHA 10/17/24 In Process 20meq/100ml 10:30 Apixaban (Eliquis) PHA 10/17/24 Logged 22:00 Date of Service: Oct 17, 2024 Billing Provider: JASSI PEREYRA NP Common Visit Codes: [id number] INP/OBS CARE(HIGH) JASSI PEREYRA NP Oct 17, 2024 13:02
[2024-10-17] MEDS: APIXABAN 5 MG TAB PO SCH (21:24)
--- NOTE | 2024-10-17 23:11 | DVHPN2 ---
Progress Note - Dictate Date Seen: Oct 17, 2024 Medical Necessity Reason Pt with a Central, PICC or Fol: Yes The following are medically ne: Aguayo Catheter Reason for aguayo catheter: Strict I&O Subjective Patient seen and examined at bedside. Remains on room air Overnight events reviewed. vital signs Vital Sign Date Time Temp Pulse Resp B/P (MAP) Pulse Ox O2 Delivery O2 Flow Rate FiO2 10/17/24 21:00 98.3 108 17 91/53 (66) 93 98.3 10/17/24 08:05 Room Air* 0 21 Total Intake and Output 10/16/24 10/16/24 10/17/24 15:00 23:00 07:00 Intake Total 100 ml 652 ml 100 ml Output Total 4550 ml 6650 ml Balance 100 ml -3898 ml -6550 ml medications Current Medications Medications Dose Ordered Sig/Mikey Route Start Time Stop Time Status Last Admin Dose Admin Enoxaparin Sodium 180 mg Q12HR SC 10/11/24 22:00 UNV Ferrous Sulfate 325 mg DAILY PO 10/12/24 10:00 10/17/24 10:17 325 MG Sodium Chloride 10 ml Q8HR IV 10/11/24 22:00 10/17/24 21:23 10 ML Docusate Sodium 100 mg BIDPRN PRN PO 10/11/24 20:45 Acetaminophen 650 mg Q6HP PRN PO 10/11/24 20:45 Acetaminophen/ Hydrocodone Bitart 1 tab Q4HP PRN PO 10/11/24 20:45 10/17/24 21:25 1 TAB Ondansetron HCl 4 mg Q4HP PRN IV 10/11/24 20:45 Atorvastatin Calcium 40 mg HS PO 10/11/24 22:00 10/17/24 21:24 40 MG Pantoprazole Sodium 40 mg DAILY@0600 PO 10/13/24 06:00 10/17/24 06:13 40 MG Metolazone 5 mg DAILY PO 10/13/24 10:00 10/16/24 09:46 5 MG Piperacillin Sod/ Tazobactam Sod 100 ml @ 25 mls/hr Q8H IV 10/12/24 15:00 10/17/24 22:29 25 MLS/HR Sodium Chloride 10 ml QSHIFT@10,22 IV 10/12/24 22:00 10/17/24 21:23 10 ML Magnesium Oxide 400 mg DAILY PO 10/13/24 10:15 10/17/24 10:17 400 MG Metoprolol Tartrate 12.5 mg BID PO 10/13/24 22:00 10/16/24 22:05 12.5 MG Furosemide 100 mg/ Sodium Chloride 110 ml @ 5.5 mls/hr Q20H IV 10/15/24 13:45 10/17/24 01:28 5.5 MLS/HR Potassium Bicarbonate 50 meq DAILY PO 10/16/24 10:00 10/17/24 10:18 50 MEQ Apixaban 5 mg BID PO 10/17/24 22:00 10/17/24 21:24 5 MG objective Gen.: Patient lying in bed in no apparent distress. On room air. Head: Normocephalic, atraumatic. Eyes: EOMI/PERRLA. Ears: Normal hearing. Normal anatomy. Neck/trachea: Trachea midline, supple. Nose: Normal external anatomy. Mouth: Moist mucous membranes. Chest: Decreased air entry bilaterally. No wheezing or rhonchi. Cardiovascular: Positive S1, positive S2. Regular rate and rhythm. Abdomen: Positive bowel sounds in all 4 quadrants. Soft, non-tender, non- distended. : Deferred. Rectal: Deferred. Skin: Warm, dry. Intact. Extremities: 2+ radial pulses bilaterally. No lower extremity edema. Neuro: Awake, alert, oriented x3. No gross motor or sensory deficits. Cranial nerves II through XII intact. Gait not assessed. laboratory and microbiology Laboratory Tests 10/17/24 05:14 Test 10/17/24 05:14 Range/Units Serum Glucose 91 74-106 mg/dL Assessment/Plan Impression: Acute hypoxic respiratory failure Pleural effusion Septic shock Atelectasis Pulmonary edema CHF exacerbation Morbid obesity BMI 51.8 Atrial fibrillation Hx of nicotine dependence Events: On room air. Supplemental oxygen PRN Continue antibiotics Incentive spirometry Iron supplementation Monitor hemoglobin Protonix for GI prophylaxis Diurese to euvolemia w/ Lasix drip Monitor renal function. Monitor electrolytes. Supplement as necessary. Supplement potassium Monitor ins and outs Therapeutic Lovenox S/p right thoracentesis on 10/14/24 with 1 liter fluid drained from right pleural space. CXR post procedure demonstrated interval decrease in right pleural effusion. Labs and imaging reviewed. Rest of plan as noted below. Plan: Supplemental oxygen PRN Titrate to keep O2 sats above 92%. Off heparin drip Pressors if necessary for hemodynamic support Titrate to keep mean arterial pressure greater than 65 mmHg Continue antibiotics Incentive spirometry Blood cultures grew group C Streptococcus. Repeat blood cultures showed no growth Diurese to euvolemia Monitor renal function. Monitor electrolytes. Supplement as necessary. Monitor ins and outs. Diet and lifestyle modifications for weight reduction Morbid obesity - complicates all care DVT prophylaxis. Prognosis: Guarded given patient's multiple co-morbidities. Rest of plan per hospitalist and other consultants. Thank you Dr. Celis for allowing me to participate in this patient's care. Further recommendations will depend on the patient's clinical course. Please do not hesitate to contact me if you have any questions or concerns. This medical document was created using an electronic medical record system with [employer] dictation system. Although these documentations are being carefully reviewed, there may still be some phonetic and typographical changes. The errors are purely typographical, due to imperfection on the software program, and do not reflect any compromise in the patient's medical care. Dietary Evaluation Review Comments: Low Na cardiac diet, Attending a wt reduction program will be very beneficial. Expected Outcomes/Goals: gradual wt loss Plan discussed with: Patient, Other (JOSE RAUL Celis) SHIRAZ OSHEA MD Oct 17, 2024 23:11
[2024-10-18] VITALS (9 sets, daily range): BP systolic 96–110; BP diastolic 55–67; PULSE 66–113; RESP 16–20; TEMP 97.9–99.3; O2SAT 91–98
[2024-10-18 17:15] LABS: Anion Gap 6 (5-15); Calcium 8.9 mg/dL (8.7-10.4)
[2024-10-18 17:20] LABS: BUN/Creatinine Ratio 11.9 (10.0-20.0); Blood Urea Nitrogen 12 mg/dL (9-23)
[2024-10-18 17:21] LABS: Carbon Dioxide 35 mmol/L (20-31); Chloride 90 mmol/L (98-107); Glucose 115 mg/dL (74-106); Potassium 3.4 mmol/L (3.5-5.1); Sodium 131 mmol/L (136-145)
[2024-10-18] MEDS: FUROSEMIDE INJECTION 100 MG in SODIUM CHL 0.9% 100 ML IV SCH (17:30)
--- NOTE | 2024-10-18 17:30 | DVHPN2 ---
Subjective Patient was denies any symptoms at this time. Reviewed: Care Plan, H&P, Labs, Medications Changes from previous H/P or p: No Changes General: Per HPI, Chills Objective Vitals Vital Signs Date Time Temp Pulse Resp B/P (MAP) Pulse Ox O2 Delivery O2 Flow Rate FiO2 10/18/24 13:36 99 102/55 10/18/24 08:47 98.3 18 93 98.3 10/18/24 08:00 Room Air* 0 21 Intake/Output Intake and Output 10/18/24 07:00 Intake Total 1876 ml Output Total 82672 ml Balance -9374 ml Intake Oral 1376 ml IV Total 500 ml Output Urine Total 38774 ml General Appearance: Alert, Oriented X3, Cooperative, No acute distress HEENT: Atraumatic, PERRLA Cardiovascular: Normal S1, Normal S2 Abdomen: Normal bowel sounds, Soft, No tenderness, No hepatospenomegaly, Other (Anasarca) Musculoskeletal: Normal sensory function, Normal motor function Neuro: Normal gait, Normal speech Skin: Dry, Intact Psych/Mental Status: Mental status NL, Mood NL Medications Current Medications Medications Dose Ordered Sig/Mikey Route Start Time Stop Time Status Last Admin Dose Admin Enoxaparin Sodium 180 mg Q12HR SC 10/11/24 22:00 UNV Ferrous Sulfate 325 mg DAILY PO 10/12/24 10:00 10/18/24 10:31 325 MG Sodium Chloride 10 ml Q8HR IV 10/11/24 22:00 10/18/24 13:04 10 ML Docusate Sodium 100 mg BIDPRN PRN PO 10/11/24 20:45 Acetaminophen 650 mg Q6HP PRN PO 10/11/24 20:45 Acetaminophen/ Hydrocodone Bitart 1 tab Q4HP PRN PO 10/11/24 20:45 10/18/24 06:12 1 TAB Ondansetron HCl 4 mg Q4HP PRN IV 10/11/24 20:45 Atorvastatin Calcium 40 mg HS PO 10/11/24 22:00 10/17/24 21:24 40 MG Pantoprazole Sodium 40 mg DAILY@0600 PO 10/13/24 06:00 10/18/24 05:21 40 MG Metolazone 5 mg DAILY PO 10/13/24 10:00 10/18/24 10:30 5 MG Piperacillin Sod/ Tazobactam Sod 100 ml @ 25 mls/hr Q8H IV 10/12/24 15:00 10/18/24 16:00 25 MLS/HR Sodium Chloride 10 ml QSHIFT@10,22 IV 10/12/24 22:00 10/18/24 10:32 10 ML Magnesium Oxide 400 mg DAILY PO 10/13/24 10:15 10/18/24 10:31 400 MG Metoprolol Tartrate 12.5 mg BID PO 10/13/24 22:00 10/18/24 10:31 12.5 MG Furosemide 100 mg/ Sodium Chloride 110 ml @ 5.5 mls/hr Q20H IV 10/15/24 13:45 10/18/24 13:35 5.5 MLS/HR Potassium Bicarbonate 50 meq DAILY PO 10/16/24 10:00 10/18/24 10:32 50 MEQ Apixaban 5 mg BID PO 10/17/24 22:00 10/18/24 10:31 5 MG Laboratory Results Laboratory Tests 10/17/24 05:14 10/18/24 16:46 Chemistry Test 10/18/24 16:46 Calcium Level 8.9 mg/dL (8.7-10.4) Urinalysis Test 10/11/24 13:34 Urine Color Dark-yellow (Yellow) Urine Clarity Ex.turbid (Clear) Urine pH 5.5 (5.0-9.0) Urine Specific [place] 1.022 (1.001-1.035) Urine Protein 2+ (Negative) H Urine Ketones Negative (Negative) Urine Blood Negative /uL (Negative) Urine Nitrite Negative (Negative) Urine Bilirubin Negative (Negative) Urine Urobilinogen 2 mg/dL (Negative) H Urine Leukocyte Esterase Negative /uL (Negative) Urine RBC <1 /hpf (0 - 3) Urine Microscopic WBC 1 /HPF (0-3) Urine Squamous Epithelial Cells Few /hpf (<5) Urine Bacteria None seen /hpf (None Seen) Urine Glucose Normal mg/dL (Normal) Microbiology Microbiology Date/Time Source Procedure Growth Status 10/14/24 10:50 Pleural Fluid Gram Stain - Final Resulted 10/14/24 10:50 Pleural Fluid Body Fluid Culture - Preliminary Resulted 10/13/24 11:15 Blood Blood Culture - Final NO GROWTH AFTER 5 DAYS OF INCUBATION. Complete 10/11/24 13:34 Voided Urine Urine Culture - Final Complete Labs and/or images reviewed: Labs reviewed by me, Image(s) reviewed by me Assessment/Plan Assessment/Plan Impression: -shock, questionable sepsis etiology -blood culture positive with beta-hemolytic strep. Questionable contamination. -probable hEFpEF -morbid obesity -right pleural effusion -atrial fibrillation -rule out sepsis -rule out GI bleed Plan: Events: Stop Lasix drip in the morning. Transitioning IV Bumex and continue metolazone. Potassium 3.4. IV potassium ordered. -no signs of bleeding. Change Lovenox to Eliquis -K and Mag replacement -Continue Lasix drip and metolazone -fluid restriction -continue Zosyn -repeat blood cultures : Pending final results -repeat labs in a.m. Total time spent with patient discussing and formulating plan of care: 35 minutes. This medical document was created using an electronic medical record system with [employer] dictation system. Although this document has been carefully reviewed, there may still be some phonetic and typographical errors. These areas are purely typographical due to imperfections of the software programs, and do not reflect any compromise in the patient's medical care. Plan discussed with: Patient, Other (RN) Date of Service: Oct 18, 2024 Billing Provider: JASSI PEREYRA NP Common Visit Codes: [id number] INP/OBS CARE(HIGH) JASSI PEREYRA NP Oct 18, 2024 17:30
[2024-10-18] MEDS: POTASSIUM CHL 20MEQ/100ML 100 ML IV SCH (20:22)
--- NOTE | 2024-10-18 23:27 | DVHPN2 ---
Progress Note - Dictate Date Seen: Oct 18, 2024 Medical Necessity Reason Pt with a Central, PICC or Fol: Yes The following are medically ne: Aguayo Catheter Reason for aguayo catheter: Strict I&O Subjective Patient seen and examined at bedside. Remains on room air Overnight events reviewed. vital signs Vital Sign Date Time Temp Pulse Resp B/P (MAP) Pulse Ox O2 Delivery O2 Flow Rate FiO2 10/18/24 21:19 88 122/68 10/18/24 21:00 98.7 18 91 98.7 10/18/24 20:00 Room Air* 0 21 Total Intake and Output 10/17/24 10/17/24 10/18/24 15:00 23:00 07:00 Intake Total 200 ml 708 ml 968 ml Output Total 6150 ml 5100 ml Balance 200 ml -5442 ml -4132 ml medications Current Medications Medications Dose Ordered Sig/Mikey Route Start Time Stop Time Status Last Admin Dose Admin Enoxaparin Sodium 180 mg Q12HR SC 10/11/24 22:00 UNV Ferrous Sulfate 325 mg DAILY PO 10/12/24 10:00 10/18/24 10:31 325 MG Sodium Chloride 10 ml Q8HR IV 10/11/24 22:00 10/18/24 20:19 10 ML Docusate Sodium 100 mg BIDPRN PRN PO 10/11/24 20:45 Acetaminophen 650 mg Q6HP PRN PO 10/11/24 20:45 Acetaminophen/ Hydrocodone Bitart 1 tab Q4HP PRN PO 10/11/24 20:45 10/18/24 20:17 1 TAB Ondansetron HCl 4 mg Q4HP PRN IV 10/11/24 20:45 Atorvastatin Calcium 40 mg HS PO 10/11/24 22:00 10/18/24 20:18 40 MG Pantoprazole Sodium 40 mg DAILY@0600 PO 10/13/24 06:00 10/18/24 05:21 40 MG Metolazone 5 mg DAILY PO 10/13/24 10:00 10/18/24 10:30 5 MG Piperacillin Sod/ Tazobactam Sod 100 ml @ 25 mls/hr Q8H IV 10/12/24 15:00 10/18/24 23:25 25 MLS/HR Sodium Chloride 10 ml QSHIFT@10,22 IV 10/12/24 22:00 10/18/24 23:24 10 ML Magnesium Oxide 400 mg DAILY PO 10/13/24 10:15 10/18/24 10:31 400 MG Metoprolol Tartrate 12.5 mg BID PO 10/13/24 22:00 10/18/24 20:19 12.5 MG Potassium Bicarbonate 50 meq DAILY PO 10/16/24 10:00 10/18/24 10:32 50 MEQ Apixaban 5 mg BID PO 10/17/24 22:00 10/18/24 20:19 5 MG Furosemide 100 mg/ Sodium Chloride 110 ml @ 5.5 mls/hr Q20H IV 10/18/24 17:30 10/19/24 08:00 Bumetanide 1 mg BIDD IV 10/19/24 10:00 Potassium Chloride 100 ml @ 50 mls/hr Q2H IV 10/18/24 17:30 10/18/24 23:29 10/18/24 23:24 50 MLS/HR objective Gen.: Patient lying in bed in no apparent distress. On room air. Head: Normocephalic, atraumatic. Eyes: EOMI/PERRLA. Ears: Normal hearing. Normal anatomy. Neck/trachea: Trachea midline, supple. Nose: Normal external anatomy. Mouth: Moist mucous membranes. Chest: Decreased air entry bilaterally. No wheezing or rhonchi. Cardiovascular: Positive S1, positive S2. Regular rate and rhythm. Abdomen: Positive bowel sounds in all 4 quadrants. Soft, non-tender, non- distended. : Deferred. Rectal: Deferred. Skin: Warm, dry. Intact. Extremities: 2+ radial pulses bilaterally. No lower extremity edema. Neuro: Awake, alert, oriented x3. No gross motor or sensory deficits. Cranial nerves II through XII intact. Gait not assessed. laboratory and microbiology Laboratory Tests 10/18/24 16:46 10/17/24 05:14 Test 10/18/24 16:46 Range/Units Serum Glucose 115 H 74-106 mg/dL Assessment/Plan Impression: Acute hypoxic respiratory failure Pleural effusion Septic shock Atelectasis Pulmonary edema CHF exacerbation Morbid obesity BMI 51.8 Atrial fibrillation Hx of nicotine dependence Events: On room air. Supplemental oxygen PRN Continue antibiotics Incentive spirometry Iron supplementation Monitor hemoglobin Protonix for GI prophylaxis Diurese to euvolemia w/ Lasix drip Monitor renal function. Monitor electrolytes. Supplement as necessary. Supplement potassium Monitor ins and outs Transition to Bumex in the AM. Therapeutic Lovenox S/p right thoracentesis on 10/14/24 with 1 liter fluid drained from right pleural space. CXR post procedure demonstrated interval decrease in right pleural effusion. Labs and imaging reviewed. Rest of plan as noted below. Plan: Supplemental oxygen PRN Titrate to keep O2 sats above 92%. Off heparin drip Pressors if necessary for hemodynamic support Titrate to keep mean arterial pressure greater than 65 mmHg Continue antibiotics Incentive spirometry Blood cultures grew group C Streptococcus. Repeat blood cultures showed no growth Diurese to euvolemia Monitor renal function. Monitor electrolytes. Supplement as necessary. Monitor ins and outs. Diet and lifestyle modifications for weight reduction Morbid obesity - complicates all care DVT prophylaxis. Prognosis: Guarded given patient's multiple co-morbidities. Rest of plan per hospitalist and other consultants. Thank you Dr. Celis for allowing me to participate in this patient's care. Further recommendations will depend on the patient's clinical course. Please do not hesitate to contact me if you have any questions or concerns. This medical document was created using an electronic medical record system with [employer] dictation system. Although these documentations are being carefully reviewed, there may still be some phonetic and typographical changes. The errors are purely typographical, due to imperfection on the software program, and do not reflect any compromise in the patient's medical care. Dietary Evaluation Review Comments: Low Na cardiac diet, Attending a wt reduction program will be very beneficial. Expected Outcomes/Goals: gradual wt loss Plan discussed with: Patient, Other (JOSE RAUL Morgan) SHIRAZ OSHEA MD Oct 18, 2024 23:27
[2024-10-19] VITALS (9 sets, daily range): BP systolic 97–110; BP diastolic 52–64; PULSE 86–127; RESP 17–19; TEMP 97.4–98.3; O2SAT 90–94
[2024-10-19] MEDS: POTASSIUM CHL 20MEQ/100ML 100 ML IV SCH (03:45)
[2024-10-19] MEDS: BUMETANIDE 1mg/4ml VIAL (0.25mg/ml) IV SCH (10:44)
--- NOTE | 2024-10-19 15:16 | DVHPN2 ---
Subjective The patient is seen and examined at bedside. No complaint today. Reviewed: Care Plan, H&P, Labs, Medications Changes from previous H/P or p: No Changes General: Per HPI, Chills Objective Vitals Vital Signs Date Time Temp Pulse Resp B/P (MAP) Pulse Ox O2 Delivery O2 Flow Rate FiO2 10/19/24 12:47 98.1 91 17 110/57 (74) 93 98.1 10/19/24 08:15 Room Air* 0 21 Intake/Output Intake and Output 10/19/24 07:00 Intake Total 2100 ml Output Total 6560 ml Balance -4460 ml Intake Oral 2000 ml IV Total 100 ml Output Urine Total 6560 ml # Bowel Movements 1 General Appearance: Alert, Oriented X3, Cooperative, No acute distress HEENT: Atraumatic, PERRLA Cardiovascular: Normal S1, Normal S2 Abdomen: Normal bowel sounds, Soft, No tenderness, No hepatospenomegaly, Other (Anasarca) Musculoskeletal: Normal sensory function, Normal motor function Neuro: Normal gait, Normal speech Skin: Dry, Intact Psych/Mental Status: Mental status NL, Mood NL Medications Current Medications Medications Dose Ordered Sig/Mikey Route Start Time Stop Time Status Last Admin Dose Admin Enoxaparin Sodium 180 mg Q12HR SC 10/11/24 22:00 UNV Ferrous Sulfate 325 mg DAILY PO 10/12/24 10:00 10/19/24 10:39 325 MG Sodium Chloride 10 ml Q8HR IV 10/11/24 22:00 10/19/24 06:10 10 ML Docusate Sodium 100 mg BIDPRN PRN PO 10/11/24 20:45 Acetaminophen 650 mg Q6HP PRN PO 10/11/24 20:45 Acetaminophen/ Hydrocodone Bitart 1 tab Q4HP PRN PO 10/11/24 20:45 10/19/24 03:33 1 TAB Ondansetron HCl 4 mg Q4HP PRN IV 10/11/24 20:45 Atorvastatin Calcium 40 mg HS PO 10/11/24 22:00 10/18/24 20:18 40 MG Pantoprazole Sodium 40 mg DAILY@0600 PO 10/13/24 06:00 10/19/24 06:20 40 MG Metolazone 5 mg DAILY PO 10/13/24 10:00 10/19/24 10:40 5 MG Piperacillin Sod/ Tazobactam Sod 100 ml @ 25 mls/hr Q8H IV 10/12/24 15:00 10/19/24 06:20 25 MLS/HR Sodium Chloride 10 ml QSHIFT@10,22 IV 10/12/24 22:00 10/19/24 10:43 10 ML Magnesium Oxide 400 mg DAILY PO 10/13/24 10:15 10/19/24 10:34 400 MG Metoprolol Tartrate 12.5 mg BID PO 10/13/24 22:00 10/18/24 20:19 12.5 MG Potassium Bicarbonate 50 meq DAILY PO 10/16/24 10:00 10/19/24 10:41 50 MEQ Apixaban 5 mg BID PO 10/17/24 22:00 10/19/24 10:42 5 MG Bumetanide 1 mg BIDD IV 10/19/24 10:00 10/19/24 10:44 1 MG Laboratory Results Laboratory Tests 10/17/24 05:14 10/18/24 16:46 Chemistry Test 10/18/24 16:46 Calcium Level 8.9 mg/dL (8.7-10.4) Urinalysis Test 10/11/24 13:34 Urine Color Dark-yellow (Yellow) Urine Clarity Ex.turbid (Clear) Urine pH 5.5 (5.0-9.0) Urine Specific [place] 1.022 (1.001-1.035) Urine Protein 2+ (Negative) H Urine Ketones Negative (Negative) Urine Blood Negative /uL (Negative) Urine Nitrite Negative (Negative) Urine Bilirubin Negative (Negative) Urine Urobilinogen 2 mg/dL (Negative) H Urine Leukocyte Esterase Negative /uL (Negative) Urine RBC <1 /hpf (0 - 3) Urine Microscopic WBC 1 /HPF (0-3) Urine Squamous Epithelial Cells Few /hpf (<5) Urine Bacteria None seen /hpf (None Seen) Urine Glucose Normal mg/dL (Normal) Microbiology Microbiology Date/Time Source Procedure Growth Status 10/14/24 10:50 Pleural Fluid Gram Stain - Final Resulted 10/14/24 10:50 Pleural Fluid Body Fluid Culture - Preliminary Resulted 10/13/24 11:15 Blood Blood Culture - Final NO GROWTH AFTER 5 DAYS OF INCUBATION. Complete 10/11/24 13:34 Voided Urine Urine Culture - Final Complete Labs and/or images reviewed: Labs reviewed by me Assessment/Plan Assessment/Plan -shock, questionable sepsis etiology -blood culture positive with beta-hemolytic strep. Questionable contamination. -probable hEFpEF -morbid obesity -right pleural effusion -atrial fibrillation -rule out sepsis -rule out GI bleed Plan: Continuing with IV Bumex and metolazone. Continuing to replace electrolytes potassium and magnesium as needed Continuing with Eliquis. Continuing with IV Zosyn. Repeat blood culture still pending. We will follow up. This medical document was created using an electronic medical record system with [employer] computerized dictation system. Although this document has been carefully reviewed, there may still be some phonetic and typographical errors. These areas are purely typographical due to imperfections of the software programs, and do not reflect any compromise in the patient's medical care. Plan discussed with: Patient Date of Service: Oct 19, 2024 Billing Provider: BIN HENDRICKSON MD Common Visit Codes: [id number] INP/OBS CARE(HIGH) BIN HENDRICKSON MD Oct 19, 2024 15:16
--- NOTE | 2024-10-19 22:01 | DVHPN2 ---
Progress Note - Dictate Date Seen: Oct 19, 2024 Medical Necessity Reason Pt with a Central, PICC or Fol: Yes The following are medically ne: PICC Line, Aguayo Catheter Reason for aguayo catheter: Strict I&O Subjective Patient seen and examined at bedside. Remains on room air Overnight events reviewed. vital signs Vital Sign Date Time Temp Pulse Resp B/P (MAP) Pulse Ox O2 Delivery O2 Flow Rate FiO2 10/19/24 21:00 98.0 94 18 101/64 (76) 91 98.0 10/19/24 08:15 Room Air* 0 21 Total Intake and Output 10/18/24 10/18/24 10/19/24 14:59 22:59 06:59 Intake Total 350 ml 850 ml 900 ml Output Total 2160 ml 1200 ml 3200 ml Balance -1810 ml -350 ml -2300 ml medications Current Medications Medications Dose Ordered Sig/Mikey Route Start Time Stop Time Status Last Admin Dose Admin Enoxaparin Sodium 180 mg Q12HR SC 10/11/24 22:00 UNV Ferrous Sulfate 325 mg DAILY PO 10/12/24 10:00 10/19/24 10:39 325 MG Sodium Chloride 10 ml Q8HR IV 10/11/24 22:00 10/19/24 15:40 10 ML Docusate Sodium 100 mg BIDPRN PRN PO 10/11/24 20:45 Acetaminophen 650 mg Q6HP PRN PO 10/11/24 20:45 Acetaminophen/ Hydrocodone Bitart 1 tab Q4HP PRN PO 10/11/24 20:45 10/19/24 20:54 1 TAB Ondansetron HCl 4 mg Q4HP PRN IV 10/11/24 20:45 Atorvastatin Calcium 40 mg HS PO 10/11/24 22:00 10/18/24 20:18 40 MG Pantoprazole Sodium 40 mg DAILY@0600 PO 10/13/24 06:00 10/19/24 06:20 40 MG Metolazone 5 mg DAILY PO 10/13/24 10:00 10/19/24 10:40 5 MG Piperacillin Sod/ Tazobactam Sod 100 ml @ 25 mls/hr Q8H IV 10/12/24 15:00 10/19/24 15:40 25 MLS/HR Sodium Chloride 10 ml QSHIFT@,22 IV 10/12/24 22:00 10/19/24 10:43 10 ML Magnesium Oxide 400 mg DAILY PO 10/13/24 10:15 10/19/24 10:34 400 MG Metoprolol Tartrate 12.5 mg BID PO 10/13/24 22:00 10/18/24 20:19 12.5 MG Potassium Bicarbonate 50 meq DAILY PO 10/16/24 10:00 10/19/24 10:41 50 MEQ Apixaban 5 mg BID PO 10/17/24 22:00 10/19/24 10:42 5 MG Bumetanide 1 mg BIDD IV 10/19/24 10:00 10/19/24 17:56 1 MG objective Gen.: Patient lying in bed in no apparent distress. On room air. Head: Normocephalic, atraumatic. Eyes: EOMI/PERRLA. Ears: Normal hearing. Normal anatomy. Neck/trachea: Trachea midline, supple. Nose: Normal external anatomy. Mouth: Moist mucous membranes. Chest: Decreased air entry bilaterally. No wheezing or rhonchi. Cardiovascular: Positive S1, positive S2. Regular rate and rhythm. Abdomen: Positive bowel sounds in all 4 quadrants. Soft, non-tender, non- distended. : Deferred. Rectal: Deferred. Skin: Warm, dry. Intact. Extremities: 2+ radial pulses bilaterally. No lower extremity edema. Neuro: Awake, alert, oriented x3. No gross motor or sensory deficits. Cranial nerves II through XII intact. Gait not assessed. laboratory and microbiology Laboratory Tests 10/18/24 16:46 10/17/24 05:14 Test 10/18/24 16:46 Range/Units Serum Glucose 115 H 74-106 mg/dL Assessment/Plan Impression: Acute hypoxic respiratory failure Pleural effusion Septic shock Atelectasis Pulmonary edema CHF exacerbation Morbid obesity BMI 51.8 Atrial fibrillation Hx of nicotine dependence Events: On room air. Supplemental oxygen PRN Continue antibiotics Incentive spirometry Iron supplementation Monitor hemoglobin Protonix for GI prophylaxis Diurese to euvolemia - Bumex BID Monitor renal function. Monitor electrolytes. Supplement as necessary. Supplement potassium Monitor ins and outs Nephrology recs appreciated. Hematuria resolved. Patient has PICC line Therapeutic Lovenox S/p right thoracentesis on 10/14/24 with 1 liter fluid drained from right pleural space. CXR post procedure demonstrated interval decrease in right pleural effusion. Labs and imaging reviewed. Rest of plan as noted below. Plan: Supplemental oxygen PRN Titrate to keep O2 sats above 92%. Off heparin drip Pressors if necessary for hemodynamic support Titrate to keep mean arterial pressure greater than 65 mmHg Continue antibiotics Incentive spirometry Blood cultures grew group C Streptococcus. Repeat blood cultures showed no growth Diurese to euvolemia Monitor renal function. Monitor electrolytes. Supplement as necessary. Monitor ins and outs. Diet and lifestyle modifications for weight reduction Morbid obesity - complicates all care DVT prophylaxis. Prognosis: Guarded given patient's multiple co-morbidities. Rest of plan per hospitalist and other consultants. Thank you Dr. Celis for allowing me to participate in this patient's care. Further recommendations will depend on the patient's clinical course. Please do not hesitate to contact me if you have any questions or concerns. This medical document was created using an electronic medical record system with [employer] dictation system. Although these documentations are being carefully reviewed, there may still be some phonetic and typographical changes. The errors are purely typographical, due to imperfection on the software program, and do not reflect any compromise in the patient's medical care. Dietary Evaluation Review Comments: Low Na cardiac diet, Attending a wt reduction program will be very beneficial. Expected Outcomes/Goals: gradual wt loss Plan discussed with: Patient, Other (JOSE RAUL [place]) SHIRAZ OSHEA MD Oct 19, 2024 22:01
[2024-10-20] VITALS (7 sets, daily range): BP systolic 100–117; BP diastolic 58–67; PULSE 74–103; RESP 14–18; TEMP 97.7–98.5; O2SAT 93–96
--- NOTE | 2024-10-20 21:32 | DVHPN2 ---
Subjective The patient is seen and examined at bedside. No complaint today. Reviewed: Care Plan, H&P, Labs, Medications Changes from previous H/P or p: No Changes General: Per HPI, Chills Objective Vitals Vital Signs Date Time Temp Pulse Resp B/P (MAP) Pulse Ox O2 Delivery O2 Flow Rate FiO2 10/20/24 21:00 98.5 99 18 117/62 (80) 95 98.5 10/20/24 08:00 Room Air* 0 21 Intake/Output Intake and Output 10/20/24 07:00 Intake Total 1840 ml Output Total 2800 ml Balance -960 ml Intake Oral 1540 ml IV Total 300 ml Output Urine Total 2800 ml # Voids 5 # Bowel Movements 2 General Appearance: Alert, Oriented X3, Cooperative, No acute distress HEENT: Atraumatic, PERRLA Cardiovascular: Normal S1, Normal S2 Abdomen: Normal bowel sounds, Soft, No tenderness, No hepatospenomegaly, Other (Anasarca) Musculoskeletal: Normal sensory function, Normal motor function Neuro: Normal gait, Normal speech Skin: Dry, Intact Psych/Mental Status: Mental status NL, Mood NL Medications Current Medications Medications Dose Ordered Sig/Mikey Route Start Time Stop Time Status Last Admin Dose Admin Enoxaparin Sodium 180 mg Q12HR SC 10/11/24 22:00 UNV Ferrous Sulfate 325 mg DAILY PO 10/12/24 10:00 10/20/24 10:13 325 MG Sodium Chloride 10 ml Q8HR IV 10/11/24 22:00 10/20/24 14:00 10 ML Docusate Sodium 100 mg BIDPRN PRN PO 10/11/24 20:45 Acetaminophen 650 mg Q6HP PRN PO 10/11/24 20:45 Acetaminophen/ Hydrocodone Bitart 1 tab Q4HP PRN PO 10/11/24 20:45 10/20/24 18:08 1 TAB Ondansetron HCl 4 mg Q4HP PRN IV 10/11/24 20:45 Atorvastatin Calcium 40 mg HS PO 10/11/24 22:00 10/19/24 22:32 40 MG Pantoprazole Sodium 40 mg DAILY@0600 PO 10/13/24 06:00 10/20/24 06:16 40 MG Metolazone 5 mg DAILY PO 10/13/24 10:00 10/20/24 10:13 5 MG Piperacillin Sod/ Tazobactam Sod 100 ml @ 25 mls/hr Q8H IV 10/12/24 15:00 10/20/24 15:45 25 MLS/HR Sodium Chloride 10 ml QSHIFT@10,22 IV 10/12/24 22:00 10/20/24 10:14 10 ML Magnesium Oxide 400 mg DAILY PO 10/13/24 10:15 10/20/24 10:13 400 MG Metoprolol Tartrate 12.5 mg BID PO 10/13/24 22:00 10/20/24 10:18 12.5 MG Potassium Bicarbonate 50 meq DAILY PO 10/16/24 10:00 10/20/24 10:14 50 MEQ Apixaban 5 mg BID PO 10/17/24 22:00 10/20/24 10:13 5 MG Bumetanide 1 mg BIDD IV 10/19/24 10:00 10/20/24 18:12 1 MG Laboratory Results Laboratory Tests 10/17/24 05:14 10/18/24 16:46 Urinalysis Test 10/11/24 13:34 Urine Color Dark-yellow (Yellow) Urine Clarity Ex.turbid (Clear) Urine pH 5.5 (5.0-9.0) Urine Specific [place] 1.022 (1.001-1.035) Urine Protein 2+ (Negative) H Urine Ketones Negative (Negative) Urine Blood Negative /uL (Negative) Urine Nitrite Negative (Negative) Urine Bilirubin Negative (Negative) Urine Urobilinogen 2 mg/dL (Negative) H Urine Leukocyte Esterase Negative /uL (Negative) Urine RBC <1 /hpf (0 - 3) Urine Microscopic WBC 1 /HPF (0-3) Urine Squamous Epithelial Cells Few /hpf (<5) Urine Bacteria None seen /hpf (None Seen) Urine Glucose Normal mg/dL (Normal) Microbiology Microbiology Date/Time Source Procedure Growth Status 10/14/24 10:50 Pleural Fluid Gram Stain - Final Resulted 10/14/24 10:50 Pleural Fluid Body Fluid Culture - Preliminary Resulted 10/13/24 11:15 Blood Blood Culture - Final NO GROWTH AFTER 5 DAYS OF INCUBATION. Complete 10/11/24 13:34 Voided Urine Urine Culture - Final Complete Labs and/or images reviewed: Labs reviewed by me Assessment/Plan Assessment/Plan -shock, questionable sepsis etiology -blood culture positive with beta-hemolytic strep. Questionable contamination. -probable hEFpEF -morbid obesity -right pleural effusion -atrial fibrillation -rule out sepsis -rule out GI bleed Plan: Continuing with IV Bumex and metolazone. Continuing to replace electrolytes potassium and magnesium as needed Continuing with Eliquis. Continuing with IV Zosyn. Repeat blood culture showed no growth . This medical document was created using an electronic medical record system with [employer] computerized dictation system. Although this document has been carefully reviewed, there may still be some phonetic and typographical errors. These areas are purely typographical due to imperfections of the software programs, and do not reflect any compromise in the patient's medical care. Plan discussed with: Patient Date of Service: Oct 20, 2024 Billing Provider: BIN HENDRICKSON MD Common Visit Codes: [id number] INP/OBS CARE(HIGH) BIN HENDRICKSON MD Oct 20, 2024 21:32
--- NOTE | 2024-10-20 23:23 | DVHPN2 ---
Progress Note - Dictate Date Seen: Oct 20, 2024 Medical Necessity Reason Pt with a Central, PICC or Fol: Yes The following are medically ne: PICC Line, Aguayo Catheter Reason for aguayo catheter: Strict I&O Subjective Patient seen and examined at bedside. Remains on room air Overnight events reviewed. vital signs Vital Sign Date Time Temp Pulse Resp B/P (MAP) Pulse Ox O2 Delivery O2 Flow Rate FiO2 10/20/24 22:30 99 117/62 10/20/24 21:00 98.5 18 95 98.5 10/20/24 08:00 Room Air* 0 21 Total Intake and Output 10/19/24 10/19/24 10/20/24 15:00 23:00 07:00 Intake Total 100 ml 940 ml 800 ml Output Total 2800 ml Balance 100 ml -1860 ml 800 ml medications Current Medications Medications Dose Ordered Sig/Mikey Route Start Time Stop Time Status Last Admin Dose Admin Enoxaparin Sodium 180 mg Q12HR SC 10/11/24 22:00 UNV Ferrous Sulfate 325 mg DAILY PO 10/12/24 10:00 10/20/24 10:13 325 MG Sodium Chloride 10 ml Q8HR IV 10/11/24 22:00 10/20/24 22:27 10 ML Docusate Sodium 100 mg BIDPRN PRN PO 10/11/24 20:45 Acetaminophen 650 mg Q6HP PRN PO 10/11/24 20:45 Acetaminophen/ Hydrocodone Bitart 1 tab Q4HP PRN PO 10/11/24 20:45 10/20/24 18:08 1 TAB Ondansetron HCl 4 mg Q4HP PRN IV 10/11/24 20:45 Atorvastatin Calcium 40 mg HS PO 10/11/24 22:00 10/20/24 22:29 40 MG Pantoprazole Sodium 40 mg DAILY@0600 PO 10/13/24 06:00 10/20/24 06:16 40 MG Metolazone 5 mg DAILY PO 10/13/24 10:00 10/20/24 10:13 5 MG Piperacillin Sod/ Tazobactam Sod 100 ml @ 25 mls/hr Q8H IV 10/12/24 15:00 10/20/24 22:32 25 MLS/HR Sodium Chloride 10 ml QSHIFT@10,22 IV 10/12/24 22:00 10/20/24 22:27 10 ML Magnesium Oxide 400 mg DAILY PO 10/13/24 10:15 10/20/24 10:13 400 MG Metoprolol Tartrate 12.5 mg BID PO 10/13/24 22:00 10/20/24 22:30 12.5 MG Potassium Bicarbonate 50 meq DAILY PO 10/16/24 10:00 10/20/24 10:14 50 MEQ Apixaban 5 mg BID PO 10/17/24 22:00 10/20/24 22:30 5 MG Bumetanide 1 mg BIDD IV 10/19/24 10:00 10/20/24 18:12 1 MG objective Gen.: Patient lying in bed in no apparent distress. On room air. Head: Normocephalic, atraumatic. Eyes: EOMI/PERRLA. Ears: Normal hearing. Normal anatomy. Neck/trachea: Trachea midline, supple. Nose: Normal external anatomy. Mouth: Moist mucous membranes. Chest: Decreased air entry bilaterally. No wheezing or rhonchi. Cardiovascular: Positive S1, positive S2. Regular rate and rhythm. Abdomen: Positive bowel sounds in all 4 quadrants. Soft, non-tender, non- distended. : Deferred. Rectal: Deferred. Skin: Warm, dry. Intact. Extremities: 2+ radial pulses bilaterally. No lower extremity edema. Neuro: Awake, alert, oriented x3. No gross motor or sensory deficits. Cranial nerves II through XII intact. Gait not assessed. laboratory and microbiology Laboratory Tests 10/18/24 16:46 10/17/24 05:14 Test 10/18/24 16:46 Range/Units Serum Glucose 115 H 74-106 mg/dL Assessment/Plan Impression: Acute hypoxic respiratory failure Pleural effusion Septic shock Atelectasis Pulmonary edema CHF exacerbation Morbid obesity BMI 51.8 Atrial fibrillation Hx of nicotine dependence Events: On room air. Supplemental oxygen PRN Continue antibiotics Incentive spirometry On Eliquis PO BID Iron supplementation Monitor hemoglobin Protonix for GI prophylaxis Diurese to euvolemia - Bumex + metolazone Monitor renal function. Monitor electrolytes. Supplement as necessary. Supplement potassium Monitor ins and outs Nephrology recs appreciated. Monitor hematuria. Patient has PICC line S/p right thoracentesis on 10/14/24 with 1 liter fluid drained from right pleural space. CXR post procedure demonstrated interval decrease in right pleural effusion. Labs and imaging reviewed. Rest of plan as noted below. Plan: Supplemental oxygen PRN Titrate to keep O2 sats above 92%. Continue Eliquis Pressors if necessary for hemodynamic support Titrate to keep mean arterial pressure greater than 65 mmHg Continue antibiotics Incentive spirometry Blood cultures grew group C Streptococcus. Repeat blood cultures showed no growth Diurese to euvolemia Monitor renal function. Monitor electrolytes. Supplement as necessary. Monitor ins and outs. Diet and lifestyle modifications for weight reduction Morbid obesity - complicates all care DVT prophylaxis. Prognosis: Guarded given patient's multiple co-morbidities. Rest of plan per hospitalist and other consultants. Thank you Dr. Celis for allowing me to participate in this patient's care. Further recommendations will depend on the patient's clinical course. Please do not hesitate to contact me if you have any questions or concerns. This medical document was created using an electronic medical record system with [employer] dictation system. Although these documentations are being carefully reviewed, there may still be some phonetic and typographical changes. The errors are purely typographical, due to imperfection on the software program, and do not reflect any compromise in the patient's medical care. Dietary Evaluation Review Comments: Low Na cardiac diet, Attending a wt reduction program will be very beneficial. Expected Outcomes/Goals: gradual wt loss Plan discussed with: Patient, Other (RN David) SHIRAZ OSHEA MD Oct 20, 2024 23:23
[2024-10-21] VITALS (8 sets, daily range): BP systolic 107–123; BP diastolic 66–73; PULSE 83–102; RESP 16–20; TEMP 97.4–98.1; O2SAT 88–98
[2024-10-21] MEDS ORDERED: BUME1TAB3 PO (13:43)
[2024-10-21] MEDS ORDERED: METO2.5T PO (13:43)
[2024-10-21] MEDS ORDERED: HYDR-4902 PO (13:46)
--- NOTE | 2024-10-21 14:26 | DVHDS2 ---
Discharge Summary Date of Admission Oct 11, 2024 at 20:31 Date of Discharge: Oct 21, 2024 Admitting Diagnosis Septic shock secondary to pneumonia Labs/Diagnostic Data: Laboratory Results Test 10/18/24 16:46 10/18/24 13:30 10/17/24 05:14 10/16/24 06:30 Sodium Level 131 mmol/L (136-145) Potassium Level 3.4 mmol/L (3.5-5.1) Chloride Level 90 mmol/L (98-107) Carbon Dioxide Level 35 mmol/L (20-31) Anion Gap 6 (5-15) Blood Urea Nitrogen 12 mg/dL (9-23) Creatinine 1.01 mg/dL (0.700-1.30) Glomerular Filtration Rate Calc 87 mL/min (>90) BUN/Creatinine Ratio 11.9 (10.0-20.0) Serum Glucose 115 mg/dL (74-106) Calcium Level 8.9 mg/dL (8.7-10.4) Stool Occult Blood Negative (Negative) Stool Occult Blood Sample #3 (Negative) White Blood Count 7.4 10^3/uL (4.4-10.8) Red Blood Count 4.36 10^6/uL (4.5-5.90) Hemoglobin 11.8 g/dL (13.5-17.5) Hematocrit 35.3 % (41.0-53.0) Mean Corpuscular Volume 81.0 fL (80.0-100.0) Mean Corpuscular Hemoglobin 27.1 pg (28.0-32.0) Mean Corpuscular Hemoglobin Concent 33.4 g/dL (32.0-36.0) Red Cell Distribution Width 15.9 % (11.8-14.3) Platelet Count 347 10^3/uL (140-450) Mean Platelet Volume 6.4 fL (6.9-10.8) Neutrophils (%) (Auto) 76.7 % (37.0-80.0) Lymphocytes (%) (Auto) 5.1 % (10.0-50.0) Monocytes (%) (Auto) 10.7 % (0.0-12.0) Eosinophils (%) (Auto) 6.8 % (0.0-7.0) Basophils (%) (Auto) 0.7 % (0.0-2.0) Neutrophils # (Auto) 5.7 10 ^3/uL (1.6-8.6) Lymphocytes # (Auto) 0.4 10 ^3/uL (0.4-5.4) Monocytes # (Auto) 0.8 10 ^3/uL (0-1.3) Eosinophils # (Auto) 0.5 10 ^3/uL (0-0.8) Basophils # (Auto) 0.1 10 ^3/uL (0-0.2) Nucleated Red Blood Cells 0.4 % Magnesium Level 1.9 mg/dL (1.6-2.6) Total Bilirubin 0.6 mg/dL (0.2-1.0) Aspartate Amino Transferase (AST) 39 U/L (13-40) Alanine Aminotransferase (ALT) 34 U/L (7-40) Alkaline Phosphatase 106 U/L (46-116) Total Protein 5.9 g/dL (5.7-8.2) Albumin 3.0 g/dL (3.2-4.8) Test 10/15/24 08:29 10/14/24 10:50 10/11/24 23:31 10/11/24 20:52 Prothrombin Time 12.4 sec (9.3-11.8) Prothrombin Time INR 1.19 (0.9-1.15) Activated Partial Thromboplast Time 71.9 SEC (24.5-34.5) Body Fluid Source Pleural fluid Body Fluid pH 8.0 Body Fluid WBC (Manual) 477 CUMM (0-200) Body Fluid RBC (Manual) 545 CUMM (0-2000) Body Fluid Mononuclear Cells 46 % Body Fluid Polymorphonuclear Cells 54 % (0-25) Body Fluid Glucose 106 mg/dL (.) Body Fluid Total Protein 0.5 g/dL (.) Body Fluid Lactate Dehydrogenase 96 IU/L (.) Stool Occult Blood Sample #2 (Negative) Ammonia 36 umol/L (11-32) Tumor Marker Alpha Fetoprotein 2.3 ng/mL (0.0-8.4) Test 10/11/24 18:35 10/11/24 16:16 10/11/24 14:40 10/11/24 14:24 Iron Level 21 ug/dL (65-175) Total Iron Binding Capacity 234 ug/dL (250-425) Percent Iron Saturation 9.0 % (20-55) Lactic Acid Level 2.0 mmol/L (0.4-2.0) Troponin I High Sensitivity 26 ng/L (</=54) Influenza Type A Antigen Negative (Negative) Influenza Type B Antigen Negative (Negative) SARS-CoV-2 Antigen (Rapid) Negative (NEGATIVE) Plasma/Serum Blood Alcohol 4.7 mg/dL (<10) Test 10/11/24 13:34 10/11/24 13:10 Urine Color Dark-yellow (Yellow) Urine Clarity Ex.turbid (Clear) Urine pH 5.5 (5.0-9.0) Urine Specific [place] 1.022 (1.001-1.035) Urine Protein 2+ (Negative) Urine Ketones Negative (Negative) Urine Blood Negative /uL (Negative) Urine Nitrite Negative (Negative) Urine Bilirubin Negative (Negative) Urine Urobilinogen 2 mg/dL (Negative) Urine Leukocyte Esterase Negative /uL (Negative) Urine RBC <1 /hpf (0 - 3) Urine Microscopic WBC 1 /HPF (0-3) Urine Squamous Epithelial Cells Few /hpf (<5) Urine Bacteria None seen /hpf (None Seen) Urine Glucose Normal mg/dL (Normal) Urine Opiates Screen Neg (NEGATIVE) Urine Fentanyl Screen Neg (NEGATIVE) Urine Barbiturates Screen Neg (NEGATIVE) Urine Phencyclidine Screen Neg (NEGATIVE) Urine Amphetamines Screen Neg (NEGATIVE) Urine Benzodiazepines Screen Neg (NEGATIVE) Urine Cocaine Screen Neg (NEGATIVE) Urine Cannabinoids Screen Neg (NEGATIVE) Phosphorus Level 3.7 mg/dL (2.4-5.1) B-Type Natriuretic Peptide 167.61 pg/mL (0-100) Thyroid Stimulating Hormone (TSH) 2.29 uIU/mL (0.55-4.78) Other Laboratory Tests 10/18/24 16:46 10/17/24 05:14 Brief Hx & Hospital Course: History of Present Illness Stevo Kelley this is a 59-year-old male patient who presents to the ED with chief complaint of lower limb swelling which started approximately one month ago after an upper respiratory infection (per patient, was sick at that time), but has been gradually getting worse until he presents abdominal and scrotal edema in these past few days. He also reports dyspnea in functional class III, unintentional weight gain of 85 lb and chills. When evaluated in triage patient presented sustained hypotension (81/40 mmHg). Denies chest pain, palpitation syncope, productive cough, nausea, vomiting, diarrhea, bleeding, recent travel and motor or sensory deficits. Course of hospitalization: Patient was treated with IV antibiotic therapy, aggressive IV diuresis with Lasix drip as well as metolazone. Patient was now he euvolemic with testicular in bilateral lower extremity swelling improving dramatically. Patient was given appropriate electrolyte replete. Patient has been weaned off of Lasix drip is now getting Bumex 1 mg twice a day. Blood cultures on repeat testing are negative. Patient was agreeable to be discharged home. He will be continued on all home medications, anticoagulation, as well as changing his diuretic from furosemide to Bumex 1 mg p.o. b.i.d. as well as taking metolazone 2.5 mg p.o. daily. He was instructed to follow up with PCP in 1-2 weeks. All questions answered. Physical examination General: Alert and Oriented x3. No acute distress. Well-nourished. Eyes: EOMI. Anicteric. HENT: Moist mucous membranes. Lungs: Clear to auscultation bilaterally. No accessory muscle use. Cardiovascular: Regular rate and rhythm. No murmur. No JVD. Abdomen: Soft, non-tender and non-distended. No palpable masses. Extremities: No edema. Non-tender. Skin: No rashes or lesions. Warm. Neurologic: No focal neurological deficits. CN II-XII grossly intact, but not individually tested. Psychiatric: Cooperative. Appropriate mood and affect. Total time spent with patient discussing and formulating plan of care: 35 minutes. This medical document was created using an electronic medical record system with [employer] software dictation system. Although this document has been carefully reviewed, there may still be some phonetic and typographical errors. These areas are purely typographical due to imperfections of the software programs, and do not reflect any compromise in the patient's medical care. Condition at Discharge: Fair Final Diagnosis/Problems List Septic shock secondary to pneumonia Secondary diagnosis -probable hEFpEF -acute on chronic diastolic heart failure -morbid obesity -right pleural effusion -atrial fibrillation -ruled out GI bleed Discharge Disposition: Home Discharge Instruct/Medications Diet: Cardiac 2g Na,low cholest (2 gm sodium, low cholesterol) Medications: Refer to medication reconciliation form 36 Discharge Statement: "Patient was advised to return to the ER or call 911 if any headaches, dizziness, shortness of breath, chest pain, abdominal pain, bleeding, fevers, or worsening of medical condition. Patient was counseled about treatment plan, medications, possible side effects, patientverbalized understanding. All questions were answered to the best of my ability. This discharge took greater then 30 minutes in planning, reviewing documentation, counseling the patient, and discussing with other team members." ASSESSMENT ASSESSMENT Assessment Date of Service: Oct 21, 2024 Billing Provider: JASSI PEREYRA NP Common Visit Codes: 23508-OCI/OBS DISCH DAY >30min JASSI PEREYRA NP Oct 21, 2024 14:26
[2024-10-21 14:39] LABS: Anion Gap 6 (5-15); Calcium 8.8 mg/dL (8.7-10.4)
[2024-10-21 14:43] LABS: Carbon Dioxide 35 mmol/L (20-31); Chloride 91 mmol/L (98-107); Potassium 3.1 mmol/L (3.5-5.1); Sodium 132 mmol/L (136-145)
[2024-10-21 14:44] LABS: BUN/Creatinine Ratio 9.3 (10.0-20.0); Blood Urea Nitrogen 10 mg/dL (9-23)
[2024-10-21 14:51] LABS: Glucose 169 mg/dL (74-106)
[2024-10-21] MEDS: POTASSIUM EFFERVESENT TAB 25 MEQ PO ONE (18:56)
--- NOTE | 2024-10-21 22:14 | DVHPN2 ---
Progress Note - Dictate Date Seen: Oct 21, 2024 Medical Necessity Reason Pt with a Central, PICC or Fol: Yes The following are medically ne: PICC Line, Aguayo Catheter Reason for aguayo catheter: Strict I&O Subjective Patient seen and examined at bedside. Remains on room air Overnight events reviewed. vital signs Vital Sign Date Time Temp Pulse Resp B/P (MAP) Pulse Ox O2 Delivery O2 Flow Rate FiO2 10/21/24 20:39 98.1 101 18 98 10/21/24 20:00 Room Air* 0 21 10/21/24 18:00 109/68 Total Intake and Output 10/20/24 10/20/24 10/21/24 15:00 23:00 07:00 Intake Total 700 ml 900 ml Output Total 3400 ml 1850 ml Balance -2700 ml -950 ml medications Current Medications Medications Dose Ordered Sig/Mikey Route Start Time Stop Time Status Last Admin Dose Admin Enoxaparin Sodium 180 mg Q12HR SC 10/11/24 22:00 UNV Ferrous Sulfate 325 mg DAILY PO 10/12/24 10:00 10/21/24 09:21 325 MG Sodium Chloride 10 ml Q8HR IV 10/11/24 22:00 10/21/24 14:00 10 ML Docusate Sodium 100 mg BIDPRN PRN PO 10/11/24 20:45 Acetaminophen 650 mg Q6HP PRN PO 10/11/24 20:45 Acetaminophen/ Hydrocodone Bitart 1 tab Q4HP PRN PO 10/11/24 20:45 10/21/24 15:55 1 TAB Ondansetron HCl 4 mg Q4HP PRN IV 10/11/24 20:45 Atorvastatin Calcium 40 mg HS PO 10/11/24 22:00 10/20/24 22:29 40 MG Pantoprazole Sodium 40 mg DAILY@0600 PO 10/13/24 06:00 10/21/24 06:09 40 MG Metolazone 5 mg DAILY PO 10/13/24 10:00 10/21/24 09:22 5 MG Piperacillin Sod/ Tazobactam Sod 100 ml @ 25 mls/hr Q8H IV 10/12/24 15:00 10/21/24 06:15 25 MLS/HR Sodium Chloride 10 ml QSHIFT@ IV 10/12/24 22:00 10/21/24 09:25 10 ML Magnesium Oxide 400 mg DAILY PO 10/13/24 10:15 10/21/24 09:22 400 MG Metoprolol Tartrate 12.5 mg BID PO 10/13/24 22:00 10/21/24 09:23 12.5 MG Potassium Bicarbonate 50 meq DAILY PO 10/16/24 10:00 10/21/24 09:37 50 MEQ Apixaban 5 mg BID PO 10/17/24 22:00 10/21/24 09:22 5 MG Bumetanide 1 mg BIDD IV 10/19/24 10:00 10/21/24 18:00 1 MG objective Gen.: Patient lying in bed in no apparent distress. On room air. Head: Normocephalic, atraumatic. Eyes: EOMI/PERRLA. Ears: Normal hearing. Normal anatomy. Neck/trachea: Trachea midline, supple. Nose: Normal external anatomy. Mouth: Moist mucous membranes. Chest: Decreased air entry bilaterally. No wheezing or rhonchi. Cardiovascular: Positive S1, positive S2. Regular rate and rhythm. Abdomen: Positive bowel sounds in all 4 quadrants. Soft, non-tender, non- distended. : Deferred. Rectal: Deferred. Skin: Warm, dry. Intact. Extremities: 2+ radial pulses bilaterally. No lower extremity edema. Neuro: Awake, alert, oriented x3. No gross motor or sensory deficits. Cranial nerves II through XII intact. Gait not assessed. laboratory and microbiology Laboratory Tests 10/21/24 14:10 10/17/24 05:14 Test 10/21/24 14:10 Range/Units Serum Glucose 169 H 74-106 mg/dL Assessment/Plan Impression: Acute hypoxic respiratory failure Pleural effusion Septic shock Atelectasis Pulmonary edema CHF exacerbation Morbid obesity BMI 51.8 Atrial fibrillation Hx of nicotine dependence Events: On room air. Supplemental oxygen PRN Continue antibiotics Incentive spirometry On Eliquis PO BID Iron supplementation Monitor hemoglobin Protonix for GI prophylaxis Diurese as tolerated w/ Bumex Monitor renal function. Monitor electrolytes. Supplement as necessary. Supplement potassium Monitor ins and outs Nephrology recs appreciated. Patient is stable for discharge from the pulmonary standpoint. S/p right thoracentesis on 10/14/24 with 1 liter fluid drained from right pleural space. CXR post procedure demonstrated interval decrease in right pleural effusion. Labs and imaging reviewed. Rest of plan as noted below. Plan: Supplemental oxygen PRN Titrate to keep O2 sats above 92%. Continue Eliquis Pressors if necessary for hemodynamic support Titrate to keep mean arterial pressure greater than 65 mmHg Continue antibiotics Incentive spirometry Blood cultures grew group C Streptococcus. Repeat blood cultures showed no growth Diurese to euvolemia Monitor renal function. Monitor electrolytes. Supplement as necessary. Monitor ins and outs. Diet and lifestyle modifications for weight reduction Morbid obesity - complicates all care DVT prophylaxis. Prognosis: Guarded given patient's multiple co-morbidities. Rest of plan per hospitalist and other consultants. Thank you Dr. Celis for allowing me to participate in this patient's care. Further recommendations will depend on the patient's clinical course. Please do not hesitate to contact me if you have any questions or concerns. This medical document was created using an electronic medical record system with [employer] dictation system. Although these documentations are being carefully reviewed, there may still be some phonetic and typographical changes. The errors are purely typographical, due to imperfection on the software program, and do not reflect any compromise in the patient's medical care. Dietary Evaluation Review Comments: Low Na cardiac diet, Attending a wt reduction program will be very beneficial. Expected Outcomes/Goals: gradual wt loss Plan discussed with: Patient, Other (JOSE RAUL Evans) SHIRAZ OSHEA MD Oct 21, 2024 22:14
== END 2024-10-21 20:20 | disposition home or self-care (01) | DRG 871 ==
LOC: ER 11:58 → TELE 20:31 → TELE-WESTW 10-14 13:32
PROVIDERS: ADMIT Internal Medicine; ATTEND Nurse Practitioner Acute Care
PROC: 02HV33Z Insertion of Infusion Device into Superior Vena Cava, Percutaneous Approach (ICD-10-PCS; 2024-10-12)
PROC: B548ZZA Ultrasonography of Superior Vena Cava, Guidance (ICD-10-PCS; 2024-10-12)
PROC: 0W993ZX Drainage of Right Pleural Cavity, Percutaneous Approach, Diagnostic (ICD-10-PCS; principal; 2024-10-14)
DX: A41.9 Sepsis, unspecified organism (principal); I50.33 Acute on chronic diastolic (congestive) heart failure; R65.21 Severe sepsis with septic shock; J18.9 Pneumonia, unspecified organism; J96.01 Acute respiratory failure with hypoxia; I48.19 Other persistent atrial fibrillation; N39.0 Urinary tract infection, site not specified; Z68.43 Body mass index [BMI] 50.0-59.9, adult; J91.8 Pleural effusion in other conditions classified elsewhere; Z20.822 Contact with and (suspected) exposure to COVID-19; D50.9 Iron deficiency anemia, unspecified; E66.01 Morbid (severe) obesity due to excess calories; E78.5 Hyperlipidemia, unspecified; I87.8 Other specified disorders of veins; Z99.81 Dependence on supplemental oxygen; Z79.899 Other long term (current) drug therapy; Z87.891 Personal history of nicotine dependence; Z82.49 Family history of ischemic heart disease and other diseases of the circulatory system
CPT/HCPCS: 36415; 36569; 71045; 76700; 76870; 76937; 76942; 80048; 80053; 80307; 80320; 81001; 82105; 82140; 82270; 83540; 83550; 83605; 83735; 83880; 83986; 84100; 84132; 84443; 84484; 85025; 85610; 85730; 87040; 87077; 87086; 87186; 87205; 87426; 87804; 89051; 93005; 93306; 93970; 96365; 96367; G0378; J2003; J2543; J3480; J3490